=== PATIENT | female | born 1945 | race Hispanic/Latino ===

== ENCOUNTER → 2022-05-20 | Outpatient (CLI) | payer MEDICARE | END | disposition home or self-care (01) | LOC: RAH 14:11 | PROVIDERS: ATTEND Internal Medicine Cardiovascular Disease | DX: R22.43 Localized swelling, mass and lump, lower limb, bilateral (principal) | CPT/HCPCS: 93970 ==

== ENCOUNTER → 2022-10-29 | Outpatient (CLI) | payer MEDICARE ==
[~2022-10-29] MED LIST: CLIN-141 PO; LIDOP TP; LOSA25TA41 PO; MELO-106 PO; SULF1TAB42 PO; VITAD50000 PO
== END | disposition home or self-care (01) ==
LOC: SHCH 13:13
PROVIDERS: ATTEND Internal Medicine Cardiovascular Disease
DX: I87.2 Venous insufficiency (chronic) (peripheral) (principal)
CPT/HCPCS: 93970

== ENCOUNTER → 2023-01-04 | Outpatient (CLI) | payer MEDICARE | END | disposition home or self-care (01) | LOC: SHCH 14:16 | PROVIDERS: ATTEND Internal Medicine Cardiovascular Disease | DX: I08.2 Rheumatic disorders of both aortic and tricuspid valves (principal); R60.9 Edema, unspecified | CPT/HCPCS: 93306 ==

== ENCOUNTER → 2023-01-31 | Outpatient (CLI) | payer MEDICARE ==
[2023-01-31 12:43] LABS: CREATININE 0.8 mg/dL (0.5-1.5); POTASSIUM 3.2 mmol/L (3.5-5.1)
== END | disposition home or self-care (01) ==
LOC: LAB 08:15
PROVIDERS: ATTEND Internal Medicine Cardiovascular Disease
DX: I10 Essential (primary) hypertension (principal)
CPT/HCPCS: 36415; 80048

== ENCOUNTER → 2023-02-17 | Outpatient (CLI) | payer MEDICARE ==
[2023-02-17 12:20] LABS: CREATININE 0.8 mg/dL (0.5-1.5); POTASSIUM 3.6 mmol/L (3.5-5.1)
== END | disposition home or self-care (01) ==
LOC: LAB 08:18
PROVIDERS: ATTEND Internal Medicine Cardiovascular Disease
DX: I10 Essential (primary) hypertension (principal)
CPT/HCPCS: 36415; 80048; 83880; 85378

== ENCOUNTER 2023-06-15 17:03 | Emergency (ER) | payer MEDICARE ==
[~2023-06-15] VITALS: Ht 157.5 cm; Wt 79.8 kg
[~2023-06-15 17:03] MED LIST changes: +AMLO5TAB4 PO; +CHOL4POW4 PO; -CLIN-141 PO; +DICY20TA2 PO; -LIDOP TP; -LOSA25TA41 PO; -MELO-106 PO; -SULF1TAB42 PO; -VITAD50000 PO
[2023-06-15 17:50] LABS: BASOPHILS # (AUTO) 0.05 K/uL (0.00-0.20); BASOPHILS % (AUTO) 0.5 % (0.0-5.0); EOSINOPHILS # (AUTO) 0.09 K/uL (0.00-0.70); EOSINOPHILS % (AUTO) 0.9 % (0.0-8.0); HEMATOCRIT 46.1 % (36-48); IMMATURE GRANULOCYTE ABSOLUTE 0.04 K/uL (0-1); LYMPHOCYTES # (AUTO) 2.1 K/uL (1.0-4.8); LYMPHOCYTES % (AUTO) 21.3 % (21.0-51.0); MEAN CORPUSCULAR HEMOGLOBIN 29.9 pg (27.0-33.0); MEAN CORPUSCULAR HGB CONC 32.8 g/dL (32.0-36.0); MEAN CORPUSCULAR VOLUME 91.3 fL (79-99); MONOCYTES # (AUTO) 0.8 K/uL (0.1-1.0); MONOCYTES % (AUTO) 8.2 % (3.0-13.0); NEUTROPHILS # (AUTO) 6.7 K/uL (1.8-7.7); NEUTROPHILS % (AUTO) 68.7 % (40.0-77.0); PLATELET COUNT (AUTO) 251 K/uL (130-400); RED BLOOD CELL COUNT(AUTO) 5.05 MIL/uL (4.00-5.50); WHITE BLOOD COUNT (AUTO) 9.8 K/uL (4.8-10.8)
[2023-06-15 18:03] LABS: CREATININE 0.7 mg/dL (0.5-1.5); POTASSIUM 3.4 mmol/L (3.5-5.1)
[2023-06-15 18:06] LABS: BILIRUBIN,URINE NEGATIVE (NEGATIVE); COLOR,URINE YELLOW (YELLOW); GLUCOSE, URINE (UA) NEGATIVE (NEGATIVE); KETONES,URINE NEGATIVE (NEGATIVE); LEUKOCYTE ESTERASE ,URINE NEGATIVE Leu/uL (NEGATIVE); NITRATE,URINE NEGATIVE (NEGATIVE); PH,URINE 7.5 (5.0-8.0); PROTEIN,URINE 50 mg/dL (NEGATIVE); UROBILINOGEN,URINE 0.2 mg/dL (0.2-1.0)
[2023-06-15 18:08] LABS: ADD UA MICROSCOPIC YES; APPEARANCE,URINE CLOUDY (CLEAR)
[2023-06-15 18:10] LABS: ALBUMIN 3.7 g/dL (3.5-5.0); BILIRUBIN,TOTAL 0.7 mg/dL (0.2-1.0); TOTAL PROTEIN, SERUM 7.9 g/dL (6.0-8.3)
[2023-06-15 18:15] LABS: BACTERIA,URINE MOD /HPF (None Seen); MUCUS,URINE RARE LPF (None Seen); SQUAMOUS EPITHELIAL CELL,UR MANY /HPF (0-2); WBC,URINE 0-1 /HPF (0-1)
[2023-06-15] MEDS ORDERED: ORPHENADRINE CITRATE 30 MG/ML ML IM ONE (21:00)
[2023-06-15] MEDS ORDERED: LIDOCAINE 5% TOPICAL PATCH TP ONE (21:00)
[2023-06-15] MEDS ORDERED: MORPHINE 4 MG SYG IM ONE (21:00)
[2023-06-15 21:10] LABS: MAGNESIUM 2.3 mg/dL (1.80-2.40)
[2023-06-15] MEDS ORDERED: LIDOP TD (22:44)
[2023-06-15 23:13] VITALS: BP 165/82; PULSE 76; RESP 16; O2SAT 99
== END 2023-06-15 23:25 | disposition home or self-care (01) ==
LOC: EDH 17:03
DX: M54.50 Low back pain, unspecified (principal); M19.90 Unspecified osteoarthritis, unspecified site; I10 Essential (primary) hypertension; Z79.899 Other long term (current) drug therapy; Z88.1 Allergy status to other antibiotic agents; Z88.2 Allergy status to sulfonamides; Z90.710 Acquired absence of both cervix and uterus
CPT/HCPCS: 99285; 74176; 83735; 84484; 80053; 83690; 85025; 81001; 36415; 96372 ×2; 93005; J2270; J2360

== ENCOUNTER 2023-06-26 10:30 | Emergency (ER) | payer MEDICARE ==
[~2023-06-26] VITALS: Ht 157.5 cm; Wt 79.8 kg
[~2023-06-26 10:30] MED LIST changes: +LIDOP TD
[2023-06-26 12:34] LABS: RAPID GROUP A STREP negative (NEGATIVE)
[2023-06-26 12:36] LABS: SARS-CoV-2, RNA, NAAT NEGATIVE SARS CoV-2 (NEGATIVE)
[2023-06-26 12:43] LABS: INFLUENZA TYPE A Negative For Type A (NEGATIVE); INFLUENZA TYPE B Negative For Type B (NEGATIVE)
[2023-06-26 12:59] LABS: BASOPHILS # (AUTO) 0.06 K/uL (0.00-0.20); BASOPHILS % (AUTO) 0.6 % (0.0-5.0); EOSINOPHILS % (AUTO) 0.9 % (0.0-8.0); HEMATOCRIT 45.1 % (36-48); IMMATURE GRANULOCYTE ABSOLUTE 0.06 K/uL (0-1); LYMPHOCYTES # (AUTO) 1.4 K/uL (1.0-4.8); LYMPHOCYTES % (AUTO) 13.4 % (21.0-51.0); MEAN CORPUSCULAR HGB CONC 33.5 g/dL (32.0-36.0); MEAN CORPUSCULAR VOLUME 89.7 fL (79-99); MONOCYTES # (AUTO) 0.9 K/uL (0.1-1.0); MONOCYTES % (AUTO) 8.3 % (3.0-13.0); NEUTROPHILS # (AUTO) 8.2 K/uL (1.8-7.7); NEUTROPHILS % (AUTO) 76.2 % (40.0-77.0); PLATELET COUNT (AUTO) 256 K/uL (130-400); RED BLOOD CELL COUNT(AUTO) 5.03 MIL/uL (4.00-5.50); RED CELL DISTRIBUTION WIDTH 13.7 % (11.0-15.5); WHITE BLOOD COUNT (AUTO) 10.7 K/uL (4.8-10.8)
[2023-06-26 13:06] LABS: CREATININE 0.7 mg/dL (0.5-1.5); POTASSIUM 3.4 mmol/L (3.5-5.1)
[2023-06-26 13:22] LABS: B-TYPE NATRIURETIC PEPTIDE 105 pg/mL (0-100)
[2023-06-26] MEDS ORDERED: ACETAMINOPHEN 500 MG TABLET PO ONE (14:30)
[2023-06-26] MEDS ORDERED: AZIT250T PO (15:08)
[2023-06-26] MEDS ORDERED: IPRNEB IH (15:08)
[2023-06-26] MEDS ORDERED: IPRATROPIUM 0.5 MG/2.5 ML INH IH ONE (16:00)
[2023-06-26] MEDS ORDERED: SOLU-MEDROL 40MG VIAL IM ONE (16:00)
[2023-06-26 16:40] VITALS: PULSE 84; RESP 21
[2023-06-26 17:24] VITALS: BP 138/89; PULSE 90; RESP 18; O2SAT 95
[2023-06-26] MEDS ORDERED: AUD IH (19:24)
[2023-06-26] MEDS ORDERED: GUAI600T50 PO (19:24)
== END 2023-06-26 17:25 | disposition home or self-care (01) ==
LOC: EDH 10:30
DX: R91.8 Other nonspecific abnormal finding of lung field (principal); R05.9 Cough, unspecified; R06.00 Dyspnea, unspecified; R79.89 Other specified abnormal findings of blood chemistry; M19.90 Unspecified osteoarthritis, unspecified site; I10 Essential (primary) hypertension; Z79.899 Other long term (current) drug therapy; Z88.1 Allergy status to other antibiotic agents; Z88.2 Allergy status to sulfonamides; Z90.710 Acquired absence of both cervix and uterus; Z20.822 Contact with and (suspected) exposure to COVID-19
CPT/HCPCS: 99285; 71045; 87635; 84484; 80048; 83880; 85025; 87880; 87804 ×2; 36415; 96372; 93005; 94640; J2920

== ENCOUNTER → 2023-09-24 | Outpatient (CLI) | payer MEDICARE ==
[~2023-09-24] MED LIST changes: -AMLO5TAB4 PO; +APIX5TAB PO; +AUD IH; +GABA100C PO; +GUAI600T50 PO; +IPRNEB IH; +LEVO750T68 PO; +METO25 PO; +PRED20B PO
[2023-09-24 16:47] LABS: CREATININE 0.9 mg/dL (0.5-1.0); POTASSIUM 3.7 mmol/L (3.5-5.1)
== END | disposition home or self-care (01) ==
LOC: LAB 13:52
PROVIDERS: ATTEND Internal Medicine Cardiovascular Disease
DX: I10 Essential (primary) hypertension (principal)
CPT/HCPCS: 36415; 80048

== ENCOUNTER → 2023-10-11 | Outpatient (CLI) | payer MEDICARE | END | disposition home or self-care (01) | LOC: SHCH 10:07 | PROVIDERS: ATTEND Internal Medicine Cardiovascular Disease | DX: I87.2 Venous insufficiency (chronic) (peripheral) (principal) | CPT/HCPCS: 93970 ==

== ENCOUNTER → 2023-12-01 | Outpatient (CLI) | payer MEDICARE ==
[~2023-12-01] MED LIST changes: -CHOL4POW4 PO; -DICY20TA2 PO; +FURO20TA4 PO; -GUAI600T50 PO; +IOHEXOL 350 MG/ML 100ML INFUS..BTL IV ONE; +IOHEXOL-350 50ML VIAL IV ONE; -LEVO750T68 PO; -LIDOP TD; +POTA-200 PO; -PRED20B PO
== END | disposition home or self-care (01) ==
LOC: RAH 10:56 → EDSTATUS 11:00
PROVIDERS: ATTEND Internal Medicine Cardiovascular Disease
DX: I87.1 Compression of vein (principal); I73.9 Peripheral vascular disease, unspecified; I74.09 Other arterial embolism and thrombosis of abdominal aorta; I70.0 Atherosclerosis of aorta
CPT/HCPCS: 75635; Q9967 ×2

== ENCOUNTER → 2024-01-30 | Outpatient (CLI) | payer MEDICARE ==
[~2024-01-30] MED LIST changes: -IOHEXOL 350 MG/ML 100ML INFUS..BTL IV ONE; -IOHEXOL-350 50ML VIAL IV ONE
[2024-01-30 12:46] LABS: CREATININE 0.8 mg/dL (0.5-1.0); POTASSIUM 4.3 mmol/L (3.5-5.1)
== END | disposition home or self-care (01) ==
LOC: LAB 09:49
PROVIDERS: ATTEND Internal Medicine Cardiovascular Disease
DX: I10 Essential (primary) hypertension (principal)
CPT/HCPCS: 36415; 80048; 83880

== ENCOUNTER → 2024-03-24 | Outpatient (CLI) | payer MEDICARE | END | disposition home or self-care (01) | LOC: LAB 14:51 | PROVIDERS: ATTEND Internal Medicine Cardiovascular Disease | DX: R60.9 Edema, unspecified (principal) | CPT/HCPCS: 36415; 83880 ==

== ENCOUNTER → 2024-03-30 | Outpatient (CLI) | payer MEDICARE ==
[2024-03-30 12:27] LABS: CREATININE 0.9 mg/dL (0.5-1.0); POTASSIUM 3.2 mmol/L (3.5-5.1)
== END | disposition home or self-care (01) ==
LOC: LAB 10:27
PROVIDERS: ATTEND Internal Medicine Cardiovascular Disease
DX: R60.9 Edema, unspecified (principal); I50.32 Chronic diastolic (congestive) heart failure
CPT/HCPCS: 36415; 80048; 83880

== ENCOUNTER 2024-05-21 05:22 | Emergency (ER) | payer MEDICARE ==
[~2024-05-21] VITALS: Ht 157.5 cm; Wt 80.3 kg
[~2024-05-21 05:22] MED LIST changes: -AUD IH; +FLUT1BLS3 IH; -GABA100C PO; -IPRNEB IH; -POTA-200 PO; +POTA-202 PO
--- NOTE | 2024-05-21 05:57 | ERN ---
ED Note History of Present Illness Stated Complaint: UTI, NAUSEA, DIZZINESS, CHILLS Chief Complaint: Painful Urination Time Seen by MD: 05:25 Dictation: Patient is a 79-year-old female with past medical history of atrial fibrillation, chronic congestive heart failure, hypertension, PID, diabetes mellitus who presents to the ER complaining of urinary symptoms including frequency, dysuria associated with the chills. Allergies: Coded Allergies: sulfamethoxazole (Unverified Allergy, Intermediate, REDNESS, 03/22/23) RASH trimethoprim (Unverified Allergy, Intermediate, REDNESS, 03/22/23) RASH metronidazole (Verified Allergy, Unknown, 09/18/22) Home Meds Active Scripts Fluticasone/Umeclidin/Vilanter (Trelegy Ellipta 100-62.5-25) 100-62.5 Blst.w.dev, 1 EACH IH BID for 30 Days, #1 INHALER Prov:YEISON EISENBERG MAINFRAME SYSTEMS PROGRAMMER 04/12/24 Metoprolol Tartrate (Lopressor) 25 Mg Tab, 12.5 MG PO BID, #60 TAB 0 Refills Prov:HAVEN ONEAL AUTO REPAIR TECHNICIAN 08/30/23 Apixaban (Eliquis) 5 Mg Tablet, 5 MG PO BID, #60 TAB 0 Refills Prov:HAVEN ONEAL AUTO REPAIR TECHNICIAN 08/30/23 Reported Medications Potassium Chloride (Potassium Chloride) 20 Meq Tab.er.prt, 2 TAB PO BID for 30 Days, #30 TAB 0 Refills 04/07/24 Furosemide (Furosemide) 20 Mg Tablet, 20 MG PO DAILY, TAB 10/21/23 Past Medical History Past Medical History: Arthritis, Diabetes-Type II, Heart Disease, Hypertension Additional Past Medical Hx: PAD: Stent in LLE, LEAKY VALVE Surgical History: Hysterectomy, Other Surgical History Other: BLADDER REPAIR, STent LLE Family History: Negative Social History: Negative History: Not Applicable Review of System Dictation NEGATIVE EXCEPT PER HPI Constitutional: Negative for fever, but reports chills Eyes: Negative for injury, pain,redness, and discharge ENT: Negative for injury,pain or swelling Cardiovascular: denies chest pain, palpitations, and edema Respiratory: Negative for shortness of breath, cough, and wheezing, Abdomen/GI: Negative for abdominal pain, nausea, vomiting, diarrhea, and constipation Back: Negative for injury and pain : Reports dysuria, frequency MS/Extremity: Negative for injury and deformity Skin: Negative for rash, and discoloration Neuro: Negative for headache, weakness, numbness, tingling, and seizure Psych: Negative for suicide ideation, homicidal ideation, and hallucinations Initial Vital Sign VS Vital Signs Date Time Temp Pulse Resp B/P (MAP) Pulse Ox O2 Delivery O2 Flow Rate FiO2 05/21/24 05:24 98.6 87 20 166/66 100 Room Air 0 05/21/24 06:23 21 Physical Exam Dictation VITAL SIGNS: Reviewed. GENERAL APPEARANCE: Alert, oriented x3, no acute distress, obese. HEAD AND FACE: Non-traumatic. EYES: PERRL, pink conjunctivas, eyelid no trauma, anterior chamber clear. EARS: Pinnas intact and no signs of trauma or erythema. Ear canals clear and no discharge. TMs no erythema. NOSE: No discharge, no bleeding. OROPHARYNX: Mouth normal, teeth no caries, tongue pink. Pharynx clear, no erythema. Tonsils no exudates, no abscesses noted. Mucous membrane moist. NECK: Supple, non-tender, no thyromegaly, no masses, no JVD, no bruits. BREAST: Deferred. CHEST: No tenderness, no crepitus, no paradoxical movement, no retractions. LUNGS: Clear, well-ventilated, symmetric, no rales, no wheezing, no rhonchi, no stridor, good breath sounds bilaterally. HEART: Regular rate, regular rhythm, no murmur, no gallops. VASCULAR: No peripheral edema. ABDOMEN: Soft, positive bowel sounds, nondistended, no guarding, nontender, no rebound, no masses no hepatomegaly, no splenomegaly, no Black's sign, no hernias. RECTAL: Deferred. GENITAL: Deferred. NEUROLOGICAL: Normal speech, gross motor function intact, gross sensory function intact. MUSCULOSKELETAL: Neck nontender, full range of motion, back nontender, full range of motion. EXTREMITIES: Nontender, full range of motion. SKIN: Color pink, dry, no turgor, no rash, no lacerations, no abrasions, no contusions. LYMPHATICS: Deferred. Results (Laboratory/Radiology) Laboratory/Radiology Laboratory Tests Test 05/21/24 05:51 05/21/24 08:00 White Blood Count 10.7 K/uL (4.8-10.8) Red Blood Count 4.39 MIL/uL (4.00-5.50) Hemoglobin 13.5 g/dL (12.0-16.0) Hematocrit 41.0 % (36-48) Mean Corpuscular Volume 93.4 fL (79-99) Mean Corpuscular Hemoglobin 30.8 pg (27.0-33.0) Mean Corpuscular Hemoglobin Concent 32.9 g/dL (32.0-36.0) Red Cell Distribution Width 14.2 % (11.0-15.5) Platelet Count 188 K/uL (130-400) Mean Platelet Volume 9.7 fL (7.5-10.5) Immature Granulocyte % (Auto) 0.7 % (0-1) Neutrophils (%) (Auto) 77.1 % (40.0-77.0) H Lymphocytes (%) (Auto) 12.6 % (21.0-51.0) L Monocytes (%) (Auto) 8.1 % (3.0-13.0) Eosinophils (%) (Auto) 1.1 % (0.0-8.0) Basophils (%) (Auto) 0.4 % (0.0-5.0) Neutrophils # (Auto) 8.2 K/uL (1.8-7.7) H Lymphocytes # (Auto) 1.4 K/uL (1.0-4.8) Monocytes # (Auto) 0.9 K/uL (0.1-1.0) Eosinophils # (Auto) 0.12 K/uL (0.00-0.70) Basophils # (Auto) 0.04 K/uL (0.00-0.20) Absolute Immature Granulocyte (auto 0.07 K/uL (0-1) Nucleated Red Blood Cells 0.0 % (0.0-0.19) Sodium Level 143 mmol/L (136-145) Potassium Level 3.2 mmol/L (3.5-5.1) L Chloride Level 106 mmol/L (101-111) Carbon Dioxide Level 30 mmol/L (21-32) Blood Urea Nitrogen 18 mg/dL (7-18) Creatinine 0.8 mg/dL (0.5-1.0) Glomerular Filtration Rate Calc 75 mL/min (>90) Random Glucose 108 mg/dL (70-105) H Total Calcium 9.1 mg/dL (8.5-10.1) B-Type Natriuretic Peptide 302 pg/mL (0-100) H Urine Color DARK-YELLOW (YELLOW) Urine Appearance CLOUDY (CLEAR) H Urine pH 7.0 (5.0-8.0) Urine Specific [place] 1.009 (1.001-1.031) Urine Protein 20 mg/dL (NEGATIVE) H Urine Glucose (UA) NEGATIVE mg/dL (NEGATIVE) Urine Ketones NEGATIVE mg/dL (NEGATIVE) Urine Occult Blood LARGE (NEGATIVE) H Urine Nitrate 1+ (NEGATIVE) H Urine Bilirubin NEGATIVE mg/dL (NEGATIVE) Urine Urobilinogen 2.0 mg/dL (0.2-1.0) H Urine Leukocyte Esterase 500 Teresa/uL (NEGATIVE) H ED Course ED Course Orders Procedure Category Date Status Time Urinalysis Profile LAB 05/21/24 In Process 05:30 Basic Metabolic Panel LAB 05/21/24 Complete 05:42 Cbc With Differential LAB 05/21/24 Complete 05:42 B-Type Natriuretic LAB 05/21/24 Complete Peptide 05:42 Phenazopyridine Hcl PHA 05/21/24 Complete 200 Mg Tab (Pyridium 06:00 Acetaminophen 500mg PHA 05/21/24 Complete Tab (Tylenol 500mg T 06:00 Ondansetron 4mg Inj PHA 05/21/24 Complete (Zofran 4mg Inj) 06:30 Culture Urine LYDIA 05/21/24 Logged 08:21 Ceftriaxone 1g Vial PHA 05/21/24 Logged (Rocephine 1g Inj) 08:30 0.9%Nacl 1000ml (Ns PHA 05/21/24 Logged 1000ml) 08:30 Current Medications Medications (Trade) Dose Ordered Sig/Fatuma Route PRN Reason Start Time Stop Time Status Last Admin Dose Admin Acetaminophen (TYLenol 500MG TAB) 500 mg ONCE ONCE PO 05/21/24 06:00 05/21/24 06:01 DC 05/21/24 06:07 Ceftriaxone Sodium (ROCEphine 1G INJ) 1 gm ONCE ONCE IVPB 05/21/24 08:30 05/21/24 08:31 UNV Ondansetron HCl (zoFRAN 4MG INJ) 4 mg ONCE ONCE IVP 05/21/24 06:30 05/21/24 06:31 DC 05/21/24 06:27 Phenazopyridine HCl (PYRIdium HCL 200 MG TAB) 200 mg ONCE ONCE PO 05/21/24 06:00 05/21/24 06:01 DC 05/21/24 06:07 Sodium Chloride 1,000 ml @ 0 mls/hr ONCE ONCE IV 05/21/24 08:30 05/21/24 08:31 UNV Vital Signs Date Time Temp Pulse Resp B/P (MAP) Pulse Ox O2 Delivery O2 Flow Rate FiO2 05/21/24 06:23 71 17 170/82 96 Room Air* 0 21 05/21/24 06:07 98.6 05/21/24 05:24 98.6 87 20 166/66 100 Room Air 0 Medical Decision Making MDM Patient is a 79-year-old female with past medical history of atrial fibrillation, chronic congestive heart failure, hypertension, PID, diabetes mellitus who presents to the ER complaining of urinary symptoms including frequency, dysuria associated with the chills. DR FORDE: I took over care at 0700 pending results and re-evaluation. Blood pressure mildly elevated otherwise unremarkable vital signs. Labs no leukocytosis. Mild left shift 77% neutrophils. No Bands. Metabolic panel is normal kidney functions normal. Urinalysis positive for UTI 1+ nitrites, 500 leuk esterase. Patient received 1 L of normal saline, 1 g of Rocephin, 4 mg of Zofran, Pyridium, and Tylenol here in the ER. No signs of SIRS or sepsis. No signs of pyelonephritis. Nontoxic in appearance. We will treat as a simple cystitis. We will discharge with the antibiotics. DX & DISP Disposition: Discharge Departure Impression: Primary Impression: UTI (urinary tract infection) Additional Impression: Hypertension Condition: Stable Scripts Cefpodoxime Proxetil (Cefpodoxime Proxetil) 200 Mg Tablet 200 MG PO BID for 10 Days, #20 TAB Prov: SALBADOR FORDE DO 05/21/24 Referrals: WILY LOVE MD (PCP) LENKA OLVERA MD May 21, 2024 05:57 SALBADOR FORDE DO May 21, 2024 08:34
[2024-05-21 05:59] LABS: BASOPHILS # (AUTO) 0.04 K/uL (0.00-0.20); BASOPHILS % (AUTO) 0.4 % (0.0-5.0); EOSINOPHILS # (AUTO) 0.12 K/uL (0.00-0.70); EOSINOPHILS % (AUTO) 1.1 % (0.0-8.0); IMMATURE GRANULOCYTE ABSOLUTE 0.07 K/uL (0-1); LYMPHOCYTES # (AUTO) 1.4 K/uL (1.0-4.8); LYMPHOCYTES % (AUTO) 12.6 % (21.0-51.0); MEAN CORPUSCULAR HEMOGLOBIN 30.8 pg (27.0-33.0); MEAN CORPUSCULAR HGB CONC 32.9 g/dL (32.0-36.0); MEAN CORPUSCULAR VOLUME 93.4 fL (79-99); MONOCYTES # (AUTO) 0.9 K/uL (0.1-1.0); MONOCYTES % (AUTO) 8.1 % (3.0-13.0); NEUTROPHILS # (AUTO) 8.2 K/uL (1.8-7.7); NEUTROPHILS % (AUTO) 77.1 % (40.0-77.0); PLATELET COUNT (AUTO) 188 K/uL (130-400); RED BLOOD CELL COUNT(AUTO) 4.39 MIL/uL (4.00-5.50); RED CELL DISTRIBUTION WIDTH 14.2 % (11.0-15.5); WHITE BLOOD COUNT (AUTO) 10.7 K/uL (4.8-10.8)
[2024-05-21 06:07] VITALS: TEMP 98.6
[2024-05-21] MEDS: PHENAZOpyridine HCL 200 MG TAB 200 MG TABLET PO ONE (06:07)
[2024-05-21] MEDS: acetaMINOPHEN 500 MG TABLET PO ONE (06:07)
[2024-05-21 06:15] LABS: CREATININE 0.8 mg/dL (0.5-1.0); POTASSIUM 3.2 mmol/L (3.5-5.1)
[2024-05-21] MEDS: ondanSETRON 4MG INJ IVP ONE (06:27)
[2024-05-21 06:34] LABS: B-TYPE NATRIURETIC PEPTIDE 302 pg/mL (0-100)
[2024-05-21 08:20] LABS: APPEARANCE,URINE CLOUDY (CLEAR); BILIRUBIN,URINE NEGATIVE (NEGATIVE); COLOR,URINE DARK-YELLOW (YELLOW); GLUCOSE, URINE (UA) NEGATIVE (NEGATIVE); KETONES,URINE NEGATIVE (NEGATIVE); LEUKOCYTE ESTERASE ,URINE 500 Leu/uL (NEGATIVE); NITRATE,URINE 1+ (NEGATIVE); OCCULT BLOOD,URINE LARGE (NEGATIVE); PROTEIN,URINE 20 mg/dL (NEGATIVE)
[2024-05-21 08:21] LABS: ADD UA MICROSCOPIC YES
[2024-05-21] MEDS ORDERED: CEFP200T14 PO (08:32)
[2024-05-21 08:40] LABS: BACTERIA,URINE FEW /HPF (None Seen); MUCUS,URINE RARE LPF (None Seen); WBC,URINE TNTC /HPF (0-1)
[2024-05-21] MEDS: cefTRIAXone 1G VIAL IVPB ONE (08:59)
[2024-05-21] MEDS: 0.9%NACL 1000ML 1,000 ML IV ONE (08:59)
[2024-05-21 09:47] VITALS: BP 161/79; PULSE 72; RESP 17; TEMP 98.6; O2SAT 100
== END 2024-05-21 10:19 | disposition home or self-care (01) ==
LOC: EDH 05:22
DX: N39.0 Urinary tract infection, site not specified (principal); E11.9 Type 2 diabetes mellitus without complications; I11.9 Hypertensive heart disease without heart failure; M19.90 Unspecified osteoarthritis, unspecified site; Z79.01 Long term (current) use of anticoagulants; Z79.899 Other long term (current) drug therapy; Z88.1 Allergy status to other antibiotic agents; Z88.2 Allergy status to sulfonamides; Z90.710 Acquired absence of both cervix and uterus
CPT/HCPCS: 99284; 96374; 96375; 80048; 83880; 85025; 87086 ×2; 87186; 81001; 36415; J7030; J0696; J2405

== ENCOUNTER 2024-07-20 09:42 | Emergency (ER) | payer MEDICARE ==
[~2024-07-20] VITALS: Ht 160 cm; Wt 81.6 kg
[~2024-07-20 09:42] MED LIST changes: +DOXY100C5 PO; -FURO20TA4 PO; +FURO40TA5 PO
--- NOTE | 2024-07-20 10:10 | ERN ---
General Chief Complaint: Lower Extremity Pain/Injury Stated Complaint: BILATERAL LEG SWELLING, WARM Time Seen by MD: 09:45 Source: patient History of Present Illness Initial Comments Patient is a 79-year-old female past medical history of venous insufficiency, cellulitis, hypertension who presents with a three-week history of worsening erythema, warmth, swelling and tenderness over bilateral lower extremities. The symptoms begun gradually and progressively worsened. The patient denies any preceding trauma, insect bites or puncture wounds, though she reports a history of chronic venous stasis. The patient describes the pain as severe, intermittent , a 9/10 and now worsening with walking or touch. There is no drainage or abscess formation noted. The patient denies any fevers, chills, nausea, vomiting, or systemic symptoms. Allergies: Coded Allergies: sulfamethoxazole (Unverified Allergy, Intermediate, REDNESS, 03/22/23) RASH trimethoprim (Unverified Allergy, Intermediate, REDNESS, 03/22/23) RASH metronidazole (Verified Allergy, Unknown, 09/18/22) Home Meds Active Scripts Cephalexin (Cephalexin) 500 Mg Tablet, 1 TAB PO TID for 10 Days, #30 TAB 0 Refills Prov:GABRIEL BONILLA MD 07/20/24 Doxycycline Hyclate (Doxycycline Hyclate) 100 Mg Capsule, 1 CAP PO BID for 10 Days, #20 CAP 0 Refills Prov:MOHIT ALVAREZ NP 05/31/24 Furosemide (Furosemide) 40 Mg Tablet, 1 TAB PO DAILY for 30 Days, #30 TAB 0 Refills Prov:MOHIT ALVAREZ NP 05/31/24 Fluticasone/Umeclidin/Vilanter (Trelegy Ellipta 100-62.5-25) 100-62.5 Bls t.w.dev, 1 EACH IH BID for 30 Days, #1 INHALER Prov:YEISON EISENBERG ABORIGINAL EDUCATION TEACHER 04/12/24 Metoprolol Tartrate (Lopressor) 25 Mg Tab, 12.5 MG PO BID, #60 TAB 0 Refills Prov:HAVEN ONEAL ADMISSIONS COUNSELOR 08/30/23 Apixaban (Eliquis) 5 Mg Tablet, 5 MG PO BID, #60 TAB 0 Refills Prov:HAVEN ONEAL ADMISSIONS COUNSELOR 08/30/23 Reported Medications Potassium Chloride (Potassium Chloride) 20 Meq Tab.er.prt, 2 TAB PO BID for 30 Days, #30 TAB 0 Refills 04/07/24 Past Medical History Past Medical History: CAD, CHF, Diabetes-Type II, Hypertension Medical History Other: TAKING ELEQUIS Past Surgical History: Hysterectomy, Other Surgical History Other: BLADDER SUSPENSION Family History Family History: Negative Social History Social History: Negative Female( History) History: Not Applicable ROS Dictation Constitutional: No appetite loss, No fevers, chills , No night sweats, No weakness, fatigue Eye: No vision change, No redness, pain or discharge ENT: No hearing loss, ear pain or discharge, No nose bleeds, No sore throat, Neck: No swelling. pain or stiffness Respiratory: No cough, shortness of breath, wheezing Cardiovascular: No chest pain,, palpitations, dyspnea, No edema Gastrointestinal: No abdominal pain, No nausea, vomiting, No diarrhea, constipation Genitourinary: No painful urination, No blood in urine, No urinary incontinence, No frequency or urgency Integumetary: Bilateral lower extremity pain, redness, swelling Lymphatic: No easy bruising, No bleeding tendencies , No swollen lymph nodes A 13-point Review of Systems was assessed, all of which are negative except for HPI or as indicated above. Physical Exam Physical Exam Dictation General: Alert & Oriented, No acute distress. EENT: No conjunctival redness or discharge noted Tympanic membranes are clear, Normal hearing, Oral mucosa is moist, No pharyngeal erythema, No nasal discharge, No oral lesions. Neck: Non-tender, No jugular vein distention, No lymphadenopathy, No thyromegaly, Supple. Respiratory: Lungs are clear to auscultation, Respirations are non-labored, Breath sounds are equal, No chest wall tenderness, _. Cardiovascular: Normal rate, Normal rhythm, No murmur, Good pulses equal in all extremities, Normal peripheral perfusion, No edema. Gastrointestinal: Soft, Non-tender, Non-distended, Normal bowel sounds, No organomegaly, _. Musculoskeletal: Normal range of motion, Normal strength, No tenderness, No swelling, No deformity, Normal gait. Integumentary: Bilateral lower extremity erythema, tenderness, edema+2 Neurologic: Alert, Oriented x4, Normal sensory, No focal defects Psychiatric: Cooperative, Appropriate mood & affect, Normal judgement, Non- suicidal. Results Laboratory and Microbiology Lab and Micro Result Laboratory Tests Test 07/20/24 09:57 2/11/25 10:15 07/20/24 10:34 07/20/24 10:37 Urine Color YELLOW (YELLOW) Urine Appearance CLOUDY (CLEAR) H Urine pH 6.5 (5.0-8.0) Urine Specific [place] 1.016 (1.001-1.031) Urine Protein 10 mg/dL (NEGATIVE) H Urine Glucose (UA) NEGATIVE mg/dL (NEGATIVE) Urine Ketones NEGATIVE mg/dL (NEGATIVE) Urine Occult Blood MODERATE (NEGATIVE) H Urine Nitrate NEGATIVE (NEGATIVE) Urine Bilirubin NEGATIVE mg/dL (NEGATIVE) Urine Urobilinogen 0.2 mg/dL (0.2-1.0) Urine Leukocyte Esterase 75 Teresa/uL (NEGATIVE) H Urine RBC 26-50 /HPF (0-1) H Urine WBC 11-25 /HPF (0-1) H Urine Squamous Epithelial Cells MANY /HPF (0-2) Urine Bacteria FEW /HPF (None Seen) Urine Hyaline Casts 2-5 /LPF (0-1 /LPF) H White Blood Count 7.6 K/uL (4.8-10.8) Red Blood Count 4.42 MIL/uL (4.00-5.50) Hemoglobin 13.3 g/dL (12.0-16.0) Hematocrit 40.4 % (36-48) Mean Corpuscular Volume 91.4 fL (79-99) Mean Corpuscular Hemoglobin 30.1 pg (27.0-33.0) Mean Corpuscular Hemoglobin Concent 32.9 g/dL (32.0-36.0) Red Cell Distribution Width 13.0 % (11.0-15.5) Platelet Count 222 K/uL (130-400) Mean Platelet Volume 10.3 fL (7.5-10.5) Immature Granulocyte % (Auto) 0.3 % (0-1) Neutrophils (%) (Auto) 69.3 % (40.0-77.0) Lymphocytes (%) (Auto) 19.7 % (21.0-51.0) L Monocytes (%) (Auto) 9.1 % (3.0-13.0) Eosinophils (%) (Auto) 1.2 % (0.0-8.0) Basophils (%) (Auto) 0.4 % (0.0-5.0) Neutrophils # (Auto) 5.2 K/uL (1.8-7.7) Lymphocytes # (Auto) 1.5 K/uL (1.0-4.8) Monocytes # (Auto) 0.7 K/uL (0.1-1.0) Eosinophils # (Auto) 0.09 K/uL (0.00-0.70) Basophils # (Auto) 0.03 K/uL (0.00-0.20) Absolute Immature Granulocyte (auto 0.02 K/uL (0-1) Nucleated Red Blood Cells 0.0 % (0.0-0.19) Erythrocyte Sedimentation Rate 22 MM/HR (0-30) Sodium Level 144 mmol/L (136-145) Potassium Level 3.8 mmol/L (3.5-5.1) Chloride Level 107 mmol/L (101-111) Carbon Dioxide Level 30 mmol/L (21-32) Blood Urea Nitrogen 22 mg/dL (7-18) H Creatinine 0.8 mg/dL (0.5-1.0) Glomerular Filtration Rate Calc 75 mL/min (>90) Random Glucose 95 mg/dL (70-105) Total Calcium 8.9 mg/dL (8.5-10.1) Total Bilirubin 0.9 mg/dL (0.2-1.0) Aspartate Amino Transf (AST/SGOT) 23 U/L (10-37) Alanine Aminotransferase (ALT/SGPT) 17 U/L (12-78) Alkaline Phosphatase 150 U/L (50-136) H B-Type Natriuretic Peptide 270 pg/mL (0-100) H Total Protein 6.8 g/dL (6.0-8.3) Albumin 3.6 g/dL (3.5-5.0) Procalcitonin < 0.05 ng/mL (0.05-0.5) L C-Reactive Protein, Quantitative 3.70 mg/L (0.5-3.0) H Lactic Acid Level 0.9 mmol/L (0.8-2.5) MDM Potential differential diagnoses include: * Cellulitis * Venous insufficiency Assessment: I will order a CBC and CMP and administer medications according to the patient's complaint. Will order 1 Liter of LR for adequate hydration I will re-evaluate the patient after treatment and diagnostic exams have returned to determine whether they require further testing, can be safely discharged home, or need admission for further treatment and evaluation. Given the social determinants of health affecting care, including literacy, access to medical care, prescription drug management, and [id number] drugs, I will ensure that treatment plans are tailored accordingly. Revaluation : Patient is alert and oriented. States she feels a lot better . Disposition: Will discharge patient at this time with prescription of Cephalexin PO and instructions to follow up with PCP for further evaluation and treatment. Attestation: Patient's case was discussed with the ER MD. Reviewed the documentation, medical decision making and treatment plan. Agrees with the findings and plan of care. ED Course Orders Procedure Category Date Status Time Cbc With Differential LAB 07/20/24 Complete 10:10 Procalcitonin LAB 07/20/24 Complete 10:10 Erythrocyte LAB 07/20/24 Complete Sedimentation Rate 10:10 Comprehensive LAB 07/20/24 Complete Metabolic Panel 10:10 Urinalysis Profile LAB 07/20/24 Complete 10:10 Blood Cult LYDIA 07/20/24 Complete 10:22 Lactic Acid LAB 07/20/24 Complete 10:22 Us Venous Doppler US 07/20/24 Resulted Bilateral 10:27 B-Type Natriuretic LAB 07/20/24 Complete Peptide 10:39 Ketorolac PHA 07/20/24 Complete Tromethamine 30mg/Ml 11:00 Crp Quantitative LAB 07/20/24 Complete 11:04 *General Dc DS 07/20/24 Transmitted Instructions 12:23 Culture Urine LYDIA 07/20/24 Complete 12:47 Vital Signs Date Time Temp Pulse Resp B/P (MAP) Pulse Ox O2 Delivery O2 Flow Rate FiO2 07/20/24 12:45 98.1 66 18 154/64 99 Room Air* 0 21 07/20/24 10:19 97.9 67 20 166/62 99 Room Air* 0 21 07/20/24 09:43 97.9 73 20 220/80 99 Room Air 0 DX & DISP Disposition: Discharge Departure Impression: Primary Impression: Cellulitis Additional Impression: Venous insufficiency Condition: Stable Scripts Cephalexin (Cephalexin) 500 Mg Tablet 1 TAB PO TID for 10 Days, #30 TAB 0 Refills Prov: GABRIEL BONILLA MD 07/20/24 Additional Instructions: Your symptoms are consistent with cellulitis. Your lab work (CBC, BMP, CRP, ESR) is stable. I have prescribed cephalexin, which is an antibiotic. Please take as prescribed. You can take [id number] Tylenol (1000 mg) up to 4 times a day as needed for pain. You can take ibuprofen (800 mg) up to 4 times a day as needed for pain. Please follow up with the primary doctor in 3-5 days for re-evaluation. Return to the emergency department as needed. Referrals: WILY LOVE MD (PCP) I performed a substantive portion of the visit. I have reviewed and personally made and approve the management plan that is documented in the notes by myself with BÁRBARA/resident. I acknowledged full responsibility for the patient's management plan. GABRIEL BONILLA MD Jul 20, 2024 10:10 SALBADOR FORDE DO Jul 20, 2024 12:40
[2024-07-20 10:51] LABS: BASOPHILS # (AUTO) 0.03 K/uL (0.00-0.20); BASOPHILS % (AUTO) 0.4 % (0.0-5.0); EOSINOPHILS # (AUTO) 0.09 K/uL (0.00-0.70); EOSINOPHILS % (AUTO) 1.2 % (0.0-8.0); HEMATOCRIT 40.4 % (36-48); IMMATURE GRANULOCYTE ABSOLUTE 0.02 K/uL (0-1); LYMPHOCYTES # (AUTO) 1.5 K/uL (1.0-4.8); LYMPHOCYTES % (AUTO) 19.7 % (21.0-51.0); MEAN CORPUSCULAR HEMOGLOBIN 30.1 pg (27.0-33.0); MEAN CORPUSCULAR HGB CONC 32.9 g/dL (32.0-36.0); MEAN CORPUSCULAR VOLUME 91.4 fL (79-99); MONOCYTES # (AUTO) 0.7 K/uL (0.1-1.0); MONOCYTES % (AUTO) 9.1 % (3.0-13.0); NEUTROPHILS # (AUTO) 5.2 K/uL (1.8-7.7); NEUTROPHILS % (AUTO) 69.3 % (40.0-77.0); PLATELET COUNT (AUTO) 222 K/uL (130-400); RED BLOOD CELL COUNT(AUTO) 4.42 MIL/uL (4.00-5.50); WHITE BLOOD COUNT (AUTO) 7.6 K/uL (4.8-10.8)
[2024-07-20 11:04] LABS: ALBUMIN 3.6 g/dL (3.5-5.0); BILIRUBIN,TOTAL 0.9 mg/dL (0.2-1.0); CREATININE 0.8 mg/dL (0.5-1.0); POTASSIUM 3.8 mmol/L (3.5-5.1); TOTAL PROTEIN, SERUM 6.8 g/dL (6.0-8.3)
[2024-07-20] MEDS: ketOROlac 30MG VIAL (30MG/ML) IV ONE (11:05)
--- NOTE | 2024-07-20 11:46 | HMCIMG ---
US VENOUS DOPPLER BILATERAL HISTORY: Lower extremity swelling COMPARISON: None TECHNIQUE: Bilateral lower extremity venous Doppler ultrasound study was performed. FINDINGS: The common femoral, femoral, popliteal, and posterior tibial veins are visualized. Normal flow with compressibilities are demonstrated. The greater saphenous veins are also seen and grossly patent. IMPRESSION: 1. No evidence of deep venous thrombosis is seen.
[2024-07-20 11:58] LABS: ERYTHROCYTE SEDIMENTATION RATE 22 MM/HR (0-30)
[2024-07-20] MEDS ORDERED: CEPH500T PO (12:29)
[2024-07-20 12:34] LABS: APPEARANCE,URINE CLOUDY (CLEAR); BILIRUBIN,URINE NEGATIVE (NEGATIVE); COLOR,URINE YELLOW (YELLOW); GLUCOSE, URINE (UA) NEGATIVE (NEGATIVE); KETONES,URINE NEGATIVE (NEGATIVE); LEUKOCYTE ESTERASE ,URINE 75 Leu/uL (NEGATIVE); NITRATE,URINE NEGATIVE (NEGATIVE); OCCULT BLOOD,URINE MODERATE (NEGATIVE); PH,URINE 6.5 (5.0-8.0); PROTEIN,URINE 10 mg/dL (NEGATIVE); UROBILINOGEN,URINE 0.2 mg/dL (0.2-1.0)
[2024-07-20 12:45] VITALS: BP 154/64; PULSE 66; RESP 18; TEMP 98.1; O2SAT 99
[2024-07-20 12:47] LABS: ADD UA MICROSCOPIC YES
[2024-07-20 12:51] LABS: BACTERIA,URINE FEW /HPF (None Seen); MUCUS,URINE RARE LPF (None Seen); RBC,URINE 26-50 /HPF (0-1); SQUAMOUS EPITHELIAL CELL,UR MANY /HPF (0-2)
== END 2024-07-20 12:47 | disposition home or self-care (01) ==
LOC: EDH 09:42
DX: I87.2 Venous insufficiency (chronic) (peripheral) (principal); L03.116 Cellulitis of left lower limb; L03.115 Cellulitis of right lower limb; E11.9 Type 2 diabetes mellitus without complications; I11.0 Hypertensive heart disease with heart failure; I50.9 Heart failure, unspecified; I25.10 Atherosclerotic heart disease of native coronary artery without angina pectoris; Z79.01 Long term (current) use of anticoagulants; Z79.899 Other long term (current) drug therapy; Z88.1 Allergy status to other antibiotic agents; Z88.2 Allergy status to sulfonamides; Z90.710 Acquired absence of both cervix and uterus
CPT/HCPCS: 99285; 93970; 96374; 80053; 83880; 85025; 85651; 87040 ×2; 87086 ×2; 87186; 83605; 86140; 81001; 36415; 84145; J1885

== ENCOUNTER 2025-02-09 08:45 | Day surgery (SDC) | payer MEDICARE ==
[~2025-02-09] VITALS: Ht 157.5 cm; Wt 75.7 kg
[2025-02-09] VITALS (10 sets, daily range): BP systolic 111–166; BP diastolic 52–88; PULSE 58–70; RESP 13–18; TEMP 97–97.9
[~2025-02-09 08:45] MED LIST changes: +0.9%NACL 1000ML 1,000 ML IV ONE; +AMOX-426 PO; -DOXY100C5 PO
== END 2025-02-09 11:55 | disposition home or self-care (01) ==
LOC: DAH 08:45
PROVIDERS: ATTEND Surgery
DX: K92.1 Melena (principal); D12.4 Benign neoplasm of descending colon; K64.0 First degree hemorrhoids; K29.50 Unspecified chronic gastritis without bleeding; K21.9 Gastro-esophageal reflux disease without esophagitis; K44.9 Diaphragmatic hernia without obstruction or gangrene; K31.89 Other diseases of stomach and duodenum; I10 Essential (primary) hypertension; F41.9 Anxiety disorder, unspecified; F32.A Depression, unspecified; M19.90 Unspecified osteoarthritis, unspecified site; M81.0 Age-related osteoporosis without current pathological fracture; I48.91 Unspecified atrial fibrillation; Z90.710 Acquired absence of both cervix and uterus; Z88.1 Allergy status to other antibiotic agents; Z88.8 Allergy status to other drugs, medicaments and biological substances; Z95.5 Presence of coronary angioplasty implant and graft; Z98.49 Cataract extraction status, unspecified eye; Z79.01 Long term (current) use of anticoagulants; Z79.899 Other long term (current) drug therapy
CPT/HCPCS: 45385; 45380; 43239; 82948 ×2; J7030; J2704; A4620; A4215; J3490

== ENCOUNTER 2025-03-02 11:00 | Emergency (ER) | payer MEDICARE ==
[~2025-03-02] VITALS: Ht 157.5 cm; Wt 77.1 kg
[~2025-03-02 11:00] MED LIST changes: -0.9%NACL 1000ML 1,000 ML IV ONE; -AMOX-426 PO; -FLUT1BLS3 IH; -FURO40TA5 PO; -POTA-202 PO
--- NOTE | 2025-03-02 11:11 | ERN ---
ED Note History of Present Illness Stated Complaint: PAIN TO LEG AND FEET Chief Complaint: Lower Extremity Pain/Injury Time Seen by MD: 11:01 Time Seen by Midlevel: 11:09 Dictation: 80Year old female with a history of venous insufficiency coming in complaining of bilateral leg pain and redness onset one week ago. Patient states he went to her PCP on Friday states see did not give her anything to treat it and only checked her urine. Denies having any fever, nausea or vomiting or diarrhea. Denies any chest pain or chest discomfort. Denies any shortness a breath. Allergies: Coded Allergies: sulfamethoxazole (Unverified Allergy, Intermediate, REDNESS, 03/22/23) RASH trimethoprim (Unverified Allergy, Intermediate, REDNESS, 03/22/23) RASH metronidazole (Verified Allergy, Unknown, 09/18/22) Home Meds Active Scripts Cephalexin (Cephalexin) 500 Mg Tablet, 1 TAB PO BID for 10 Days, #20 TAB 0 Refills Prov:RACHELL ABBOTT USER SUPPORT ANALYST SUPERVISOR 03/02/25 Metoprolol Tartrate (Lopressor) 25 Mg Tab, 12.5 MG PO BID, #60 TAB 0 Refills Prov:HAVEN ONEAL HIDE MILL WORKER 08/30/23 Apixaban (Eliquis) 5 Mg Tablet, 5 MG PO BID, #60 TAB 0 Refills Prov:HAVEN ONEAL HIDE MILL WORKER 08/30/23 Past Medical History Past Medical History: Diabetes-Type II, Heart Disease, Hypertension Additional Past Medical Hx: TAKING ELEQUIS Surgical History: Hysterectomy, Other Surgical History Other: BLADDER LIFT Family History: Negative Social History: Negative History: Not Applicable Review of System Dictation Constitutional: Negative for fever,chills, and weight loss Eyes: Negative for injury, pain,redness, and discharge ENT: Negative for injury,pain or swelling Cardiovascular: Negative for chest pain, palpitations, and edema Respiratory: Negative for shortness of breath, cough, and wheezing, Abdomen/GI: Negative for abdominal pain, nausea, vomiting, diarrhea, and constipation Back: Negative for injury and pain : Negative for injury, bleeding and discharge MS/Extremity: Complaining of swelling and redness and pain to bilateral lower extremities Skin: Negative for rash, and discoloration Neuro: Negative for headache, weakness, numbness, tingling, and seizure Psych: Negative for suicide ideation, homicidal ideation, and hallucinations Review of Systems: was completed Initial Vital Sign VS Vital Signs Date Time Temp Pulse Resp B/P (MAP) Pulse Ox O2 Delivery O2 Flow Rate FiO2 03/02/25 11:01 97.9 74 18 156/81 96 Room Air 03/02/25 14:30 0 21 Physical Exam Dictation General: awake, alert, NAD Head/Face: Normocephalic, atraumatic Eyes: PERRL, EOMI, vision at baseline ENT: oral cavity clear, TMs clear, no signs of infection Neck: Trachea midline, supple, no nuchal rigidity Cardiovascular: RRR, normal S1/S2, No MRGs, no JVD Respiratory: CTAB, no respiratory distress, No rales or wheezes Abdomen: Soft, non-tender, non-distended, normal bowel sounds, no guarding or rebound. Skin: Warm, dry, normal turgor, no rash MS/Extremity: Pulses equal, no cyanosis, neurovascular intact, FROM, bilateral lower leg swelling ,plus three pitting edema, redness, no open wounds. Neuro: COAx4, GCS 15, strength 5/5, CN 2-12 intact, normal cerebellar exam, normal gait, Psych: Normal behavior, mood, and affect normal Results (Laboratory/Radiology) Laboratory/Radiology Laboratory Tests Test 03/02/25 12:09 03/02/25 14:40 White Blood Count 6.5 K/uL (4.8-10.8) Red Blood Count 4.69 MIL/uL (4.00-5.50) Hemoglobin 13.8 g/dL (12.0-16.0) Hematocrit 43.0 % (36-48) Mean Corpuscular Volume 91.7 fL (79-99) Mean Corpuscular Hemoglobin 29.4 pg (27.0-33.0) Mean Corpuscular Hemoglobin Concent 32.1 g/dL (32.0-36.0) Red Cell Distribution Width 15.1 % (11.0-15.5) Platelet Count 176 K/uL (130-400) Mean Platelet Volume 10.3 fL (7.5-10.5) Immature Granulocyte % (Auto) 0.3 % (0-1) Neutrophils (%) (Auto) 69.0 % (40.0-77.0) Lymphocytes (%) (Auto) 19.5 % (21.0-51.0) L Monocytes (%) (Auto) 9.7 % (3.0-13.0) Eosinophils (%) (Auto) 0.9 % (0.0-8.0) Basophils (%) (Auto) 0.6 % (0.0-5.0) Neutrophils # (Auto) 4.5 K/uL (1.8-7.7) Lymphocytes # (Auto) 1.3 K/uL (1.0-4.8) Monocytes # (Auto) 0.6 K/uL (0.1-1.0) Eosinophils # (Auto) 0.06 K/uL (0.00-0.70) Basophils # (Auto) 0.04 K/uL (0.00-0.20) Absolute Immature Granulocyte (auto 0.02 K/uL (0-1) Nucleated Red Blood Cells 0.0 % (0.0-0.19) Erythrocyte Sedimentation Rate 17 MM/HR (0-30) Sodium Level 137 mmol/L (136-145) Potassium Level 3.9 mmol/L (3.5-5.1) Chloride Level 102 mmol/L (101-111) Carbon Dioxide Level 26 mmol/L (21-32) Blood Urea Nitrogen 15 mg/dL (7-18) Creatinine 0.8 mg/dL (0.5-1.0) Glomerular Filtration Rate Calc 74 mL/min (>90) Random Glucose 93 mg/dL (70-105) Total Calcium 9.2 mg/dL (8.5-10.1) Total Bilirubin 1.9 mg/dL (0.2-1.0) H Direct Bilirubin 0.7 mg/dL (0.0-0.3) H Aspartate Amino Transf (AST/SGOT) 22 U/L (10-37) Alanine Aminotransferase (ALT/SGPT) 14 U/L (12-78) Alkaline Phosphatase 174 U/L (50-136) H C-Reactive Protein, Quantitative 3.50 mg/L (0.5-3.0) H B-Type Natriuretic Peptide 448 pg/mL (0-100) H Total Protein 6.9 g/dL (6.0-8.3) Albumin 3.2 g/dL (3.5-5.0) L Urine Color LIGHT-YELLOW (YELLOW) Urine Appearance CLEAR (CLEAR) Urine pH 7.0 (5.0-8.0) Urine Specific [place] 1.011 (1.001-1.031) Urine Protein 30 mg/dL (NEGATIVE) H Urine Glucose (UA) NEGATIVE mg/dL (NEGATIVE) Urine Ketones NEGATIVE mg/dL (NEGATIVE) Urine Occult Blood +- (TRACE) (NEGATIVE) H Urine Nitrate NEGATIVE (NEGATIVE) Urine Bilirubin NEGATIVE mg/dL (NEGATIVE) Urine Urobilinogen 0.2 mg/dL (0.2-1.0) Urine Leukocyte Esterase NEGATIVE Teresa/uL Urine RBC 2-5 /HPF (0-1) H Urine WBC 2-5 /HPF (0-1) H Urine Squamous Epithelial Cells FEW /HPF (0-2) Urine Bacteria RARE /HPF (None Seen) Labs Reviewed?: Yes ED Course ED Course Orders Procedure Category Date Status Time Cbc With Differential LAB 03/02/25 Complete 11:07 Basic Metabolic Panel LAB 03/02/25 Complete 11:07 Hepatic Function Panel LAB 03/02/25 Complete 11:07 Crp Quantitative LAB 03/02/25 Complete 11:07 Erythrocyte Sed Rate LAB 03/02/25 Complete 11:07 B-Type Natriuretic LAB 03/02/25 Complete Peptide 11:07 12 Lead Ekg Tracing- EKG 03/02/25 Complete Technical 11:07 Us Venous Doppler US 03/02/25 Resulted Bilateral 11:07 Urinalysis Profile LAB 03/02/25 Complete 11:07 Furosemide 20mg Vial PHA 03/02/25 Complete (Lasix 20mg Vial) 14:30 Current Medications Medications (Trade) Dose Ordered Sig/Fatuma Route PRN Reason Start Time Stop Time Status Last Admin Dose Admin Furosemide (LASix 20MG VIAL) 20 mg ONCE ONCE IV 03/02/25 14:30 03/02/25 14:31 DC Vital Signs Date Time Temp Pulse Resp B/P (MAP) Pulse Ox O2 Delivery O2 Flow Rate FiO2 03/02/25 14:30 97.5 91 20 159/62 97 Room Air* 0 21 03/02/25 11:01 97.9 74 18 156/81 96 Room Air Medical Decision Making MDM MDM: 80Year old female with a history of venous insufficiency coming in complaining of bilateral leg pain and redness onset one week ago. Patient states he went to her PCP on Friday states see did not give her anything to treat it and only checked her urine. Denies having any fever, nausea or vomiting or diarrhea. Denies any chest pain or chest discomfort. Denies any shortness a breath. CBC shows no leukocytosis, no anemia, no thrombocytopenia. ESR is 17. Chemistry shows no electrolyte abnormality. Normal kidney function. BNP mildly elevated at 448. And mild elevation of CRP at 3.5. Ultrasound is negative for bilateral DVTs. Patient will receive a dose of IV Lasix here and be discharged for Lasix for one week along with the clindamycin for cellulitis. Differential diagnosis: Venous insufficiency, cellulitis, DVTs Rationale: Tests considered and ordered secondary to shared decision making include: Previous outside records reviewed: Old ER visits. Risk of complication and/or morbidity or mortality of patient management: None Medications-Per medication reconciliation Need for hospitalization: Patient does not meet criteria for hospitalization. Need for emergency major/minor surgery: No There are no social concerns with this patient. Prescription drug management Prescriptions will include symptomatic care Patient's prior external medical records from other ER visits were reviewed by me as indicated. Prior testing and results from previous visits were reviewed. Prior tests were taken into account with medical decision making and resource utilization, independent historian/historians were used to obtain complete medical history. I independently interpreted the test that were performed, results were reviewed by me and considered findings on radiology if ordered. Medical management and examination interpretation discussions were had by me with other qualified healthcare professionals as indicated for the patient's care. DX & DISP Disposition: Discharge Departure Impression: Primary Impression: Venous insufficiency Additional Impression: Cellulitis Condition: Stable Scripts Cephalexin (Cephalexin) 500 Mg Tablet 1 TAB PO BID for 10 Days, #20 TAB 0 Refills Prov: RACHELL ABBOTT NP 03/02/25 Additional Instructions: Take antibiotics as prescribed. Return to the hospital for worsening symptoms otherwise follow up with your primary doctor. Referrals: WILY LOVE MD (PCP) Time of Disposition: 14:27 I have reviewed the case, and I agree with, Diagnosis and Plan I performed a substantive portion of the visit. I have reviewed and personally made and approve the management plan that is documented in the notes by myself with BÁRBARA/resident. I acknowledged full responsibility for the patient's management plan. RACHELL ABBOTT NP Mar 02, 2025 11:11 SALBADRO FORDE DO Mar 02, 2025 17:38
--- NOTE | 2025-03-02 12:12 | EKG ---
[facility] Test Date: 2025-03-02 Test Time: 11:53:30 Pat Name: ALEJANDRO ESTRELLA Department: ED Room: Gender: F Insulation Machine Operator: [id number] : 1945 Requested By: RACHELL ABBOTT Order Number: [id number] Reading MD: Ayah Arriaza Measurements Intervals [place] Rate: 67 P: 0 IN: 0 QRS: -33 QRSD: 132 T: 122 QT: 483 QTc: 509 Interpretive Statements Atrial fibrillation Left bundle branch block ST elevation secondary to IVCD Compared to ECG 11/10/2024 21:09:27 Sinus tachycardia no longer present ST (T wave) deviation still present Electronically Signed On 03-04-2025 08:36:14 CDT by Ayah Arriaza Please click the below link to view image of tracing.
[2025-03-02 12:13] LABS: IMMATURE GRANULOCYTE ABSOLUTE 0.02 K/uL (0-1); NUCLEATED RED BLOOD CELLS 0.0 % (0.0-0.19); PLATELET COUNT (AUTO) 176 K/uL (130-400); RED BLOOD CELL COUNT(AUTO) 4.69 MIL/uL (4.00-5.50); RED CELL DISTRIBUTION WIDTH 15.1 % (11.0-15.5); WHITE BLOOD COUNT (AUTO) 6.5 K/uL (4.8-10.8)
[2025-03-02 12:29] LABS: ERYTHROCYTE SEDIMENTATION RATE 17 MM/HR (0-30)
--- NOTE | 2025-03-02 12:50 | HMCIMG ---
EXAM: US for Deep Venous Thrombosis, bilateral Lower Extremity. CLINICAL HISTORY: Leg Pain and Swelling TECHNIQUE: Real-time ultrasound scan of the veins of the bilateral lower extremity with color Doppler flow, spectral waveform analysis and compression. COMPARISON: None provided. FINDINGS: DEEP VEINS: The common femoral, superficial femoral, and popliteal veins are echolucent and compressible. There is normal color Doppler flow throughout. The visualized calf veins appear patent. SOFT TISSUES: No popliteal fossa cyst or other abnormalities. IMPRESSION: No deep venous thrombosis evident on bilateral lower extremity examination. /[place]
[2025-03-02 13:06] LABS: CREATININE 0.8 mg/dL (0.5-1.0); GLOMERULAR FILTR. RATE CALC 74.0 mL/min (>90); GLUCOSE,RANDOM 93.0 mg/dL (70-105); SODIUM SERUM 137.0 mmol/L (136-145); UREA NITROGEN, BLOOD 15.0 mg/dL (7-18)
[2025-03-02 13:10] LABS: ASPARTATE AMINOTRANSFERASE 22.0 U/L (10-37); TOTAL PROTEIN, SERUM 6.9 g/dL (6.0-8.3)
[2025-03-02] MEDS ORDERED: CLIN-141 PO (14:27)
[2025-03-02 14:30] VITALS: BP 159/62; PULSE 91; RESP 20; TEMP 97.6; O2SAT 97
[2025-03-02] MEDS ORDERED: CEPH500T PO (14:52)
[2025-03-02 14:53] LABS: ADD UA MICROSCOPIC YES; APPEARANCE,URINE CLEAR (CLEAR); GLUCOSE, URINE (UA) NEGATIVE (NEGATIVE); LEUKOCYTE ESTERASE ,URINE NEGATIVE Leu/uL (NEGATIVE); NITRATE,URINE NEGATIVE (NEGATIVE); OCCULT BLOOD,URINE +- (TRACE) (NEGATIVE)
[2025-03-02 14:55] LABS: SQUAMOUS EPITHELIAL CELL,UR FEW /HPF (0-2)
== END 2025-03-02 15:22 | disposition home or self-care (01) ==
LOC: EDH 11:00
DX: I87.2 Venous insufficiency (chronic) (peripheral) (principal); L03.116 Cellulitis of left lower limb; L03.115 Cellulitis of right lower limb; E11.9 Type 2 diabetes mellitus without complications; I11.9 Hypertensive heart disease without heart failure; Z79.01 Long term (current) use of anticoagulants; Z79.899 Other long term (current) drug therapy; Z88.1 Allergy status to other antibiotic agents; Z88.2 Allergy status to sulfonamides; Z90.710 Acquired absence of both cervix and uterus
CPT/HCPCS: 36415; 80048; 80076; 81001; 83880; 85025; 85651; 86140; 93005; 93970; 99284; J1938

== ENCOUNTER 2025-05-30 13:07 | Inpatient (IN) | payer MEDICARE ==
[~2025-05-30] VITALS: Ht 157.5 cm; Wt 76.7 kg
[~2025-05-30 13:07] MED LIST changes: +CEPH500T PO
--- NOTE | 2025-05-30 13:20 | EKG ---
[facility] Test Date: 2025-05-30 Test Time: 13:14:29 Pat Name: ALEJANDRO ESTRELLA Department: EDH Room: ED Gender: F Department Director: [id number] : 1945 Requested By: SALBADOR FORDE Order Number: [id number] Reading MD: Dewey Oliveira Measurements Intervals [place] Rate: 71 P: 0 HI: 0 QRS: -42 QRSD: 141 T: 120 QT: 468 QTc: 515 Interpretive Statements Atrial flutter Nonspecific IVCD with LAD LVH with secondary repolarization abnormality Electronically Signed On 05-30-2025 19:11:16 BRAKE REPA[employer]RO[employer] by Dewey Oliveira Please click the below link to view image of tracing.
[2025-05-30 13:42] LABS: IMMATURE GRANULOCYTE ABSOLUTE 0.02 K/uL (0-1); NUCLEATED RED BLOOD CELLS 0.0 % (0.0-0.19); PLATELET COUNT (AUTO) 204 K/uL (130-400); RED BLOOD CELL COUNT(AUTO) 4.81 MIL/uL (4.00-5.50); RED CELL DISTRIBUTION WIDTH 16.7 % (11.0-15.5); WHITE BLOOD COUNT (AUTO) 7.5 K/uL (4.8-10.8)
[2025-05-30 13:52] LABS: ERYTHROCYTE SEDIMENTATION RATE 22 MM/HR (0-30)
[2025-05-30 14:18] LABS: CREATININE 0.9 mg/dL (0.5-1.0); GLOMERULAR FILTR. RATE CALC 65.0 mL/min (>90); GLUCOSE,RANDOM 107.0 mg/dL (70-105); SODIUM SERUM 139.0 mmol/L (136-145); UREA NITROGEN, BLOOD 18.0 mg/dL (7-18)
[2025-05-30 14:30] LABS: CREATINE KINASE, TOTAL 63.0 U/L (21-232)
[2025-05-30] MEDS ORDERED: VANCOMYCIN HCL 1.25 GM/250 ML BAG IV ONE (14:30)
--- NOTE | 2025-05-30 14:35 | ERN ---
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 Patient reports she always has a minimal swelling to the legs, mostly on the right. She reports that over the last week or two she has had a dramatic increase in the swelling. It goes all the way up to her thighs. She had also feels some mild distention in the lower abdomen. She reports difficulty lying flat. She reports pain to both legs. She reports decreased ambulation due to the swelling. She was visited by home health, and they are concerned about the swelling. He is also here erythema and tenderness to both legs. No fevers or systemic symptoms. Allergies: Coded Allergies: sulfamethoxazole (Unverified Allergy, Intermediate, REDNESS, 03/22/23) RASH trimethoprim (Unverified Allergy, Intermediate, REDNESS, 03/22/23) RASH metronidazole (Verified Allergy, Unknown, 09/18/22) Home Meds Active Scripts Cephalexin (Cephalexin) 500 Mg Tablet, 1 TAB PO BID for 10 Days, #20 TAB 0 Refills Prov:RACHELL ABBOTT NIPPLE MACHINE OPERATOR 03/02/25 Metoprolol Tartrate (Lopressor) 25 Mg Tab, 12.5 MG PO BID, #60 TAB 0 Refills Prov:HAVEN ONEAL NIPPLE MACHINE OPERATOR 08/30/23 Apixaban (Eliquis) 5 Mg Tablet, 5 MG PO BID, #60 TAB 0 Refills Prov:HAVEN ONEAL [facility] 08/30/23 Past Medical History Past Medical History: A-Fib, Diabetes-Type II, Heart Disease, Hypertension, Vascular Disease Medical History Other: SLEEP APNEA Past Surgical History: Hysterectomy, Other Surgical History Other: BLADDER LIFT, NECK Family History Family History: Negative Social History Social History: Negative Female( History) History: Not Applicable ROS Dictation CONSTITUTIONAL: No chills, no fever, no weakness, no diaphoresis, no malaise. HEAD/FACE: No signs of trauma. EENT: No eye pain, no blurred vision, no tearing, no double vision, no ear pain, no ear discharge, no nose pain, no nasal congestion, no throat pain, no throat swelling, no mouth pain. RESPIRATORY: No cough, no orthopnea, no SOB, no stridor, no wheezing. CARDIOVASCULAR: No chest pain, no edema, no palpitations, no syncope. GASTROINTESTINAL/ABDOMINAL: No abdominal pain, no constipation, no diarrhea, no nausea, no vomiting. GENITOURINARY: No abnormal discharge, no dysuria, no frequent urination, no hematuria. No complaints of pain in the genitals. MUSCULOSKELETAL: For bilateral lower leg swelling INTEGUMENTARY: No change in color, no change in hair/nails, no dryness, no lesi on, no lumps, no rash. NEUROLOGICAL/PSYCH: No anxiety, not depressed, no emotional problem, no headache, no numbness, no pre-existing deficit, no history of seizures, no tremors, no weakness. HEMATOLOGIC/LYMPHATIC: Not anemic, no history of blood clots, no apparent bleeding, no bruising, glands not swollen. All Systems Negative, Except as Noted. Physical Exam Physical Exam Dictation VITAL SIGNS: Reviewed. GENERAL APPEARANCE: Alert, oriented x3, no acute distress, obese. HEAD AND FACE: Non-traumatic. EYES: PERRL, pink conjunctivas, eyelid no trauma, anterior chamber clear. EARS: Pinnas intact and no signs of trauma or erythema. Ear canals clear and no discharge. TMs no erythema. NOSE: No discharge, no bleeding. OROPHARYNX: Mouth normal, teeth no caries, tongue pink. Pharynx clear, no erythema. Tonsils no exudates, no abscesses noted. Mucous membrane moist. NECK: Supple, non-tender, no thyromegaly, no masses, no JVD, no bruits. BREAST: Deferred. CHEST: No tenderness, no crepitus, no paradoxical movement, no retractions. LUNGS: Clear, well-ventilated, symmetric, no rales, no wheezing, no rhonchi, no stridor, good breath sounds bilaterally. HEART: Regular rate, regular rhythm, no murmur, no gallops. VASCULAR: No peripheral edema. ABDOMEN: Soft, positive bowel sounds, nondistended, no guarding, nontender, no rebound, no masses no hepatomegaly, no splenomegaly, no Black's sign, no hernias. RECTAL: Deferred. GENITAL: Deferred. NEUROLOGICAL: Normal speech, gross motor function intact, gross sensory function intact. MUSCULOSKELETAL: Bilateral lower leg swelling EXTREMITIES: Nontender, full range of motion. SKIN: Color pink, dry, no turgor, no rash, no lacerations, no abrasions, no contusions. LYMPHATICS: Deferred. Results Laboratory and Microbiology Lab and Micro Result Laboratory Tests Test 05/30/25 13:29 White Blood Count 7.5 K/uL (4.8-10.8) Red Blood Count 4.81 MIL/uL (4.00-5.50) Hemoglobin 14.6 g/dL (12.0-16.0) Hematocrit 44.5 % (36-48) Mean Corpuscular Volume 92.5 fL (79-99) Mean Corpuscular Hemoglobin 30.4 pg (27.0-33.0) Mean Corpuscular Hemoglobin Concent 32.8 g/dL (32.0-36.0) Red Cell Distribution Width 16.7 % (11.0-15.5) H Platelet Count 204 K/uL (130-400) Mean Platelet Volume 10.5 fL (7.5-10.5) Immature Granulocyte % (Auto) 0.3 % (0-1) Neutrophils (%) (Auto) 63.9 % (40.0-77.0) Lymphocytes (%) (Auto) 21.4 % (21.0-51.0) Monocytes (%) (Auto) 11.7 % (3.0-13.0) Eosinophils (%) (Auto) 2.0 % (0.0-8.0) Basophils (%) (Auto) 0.7 % (0.0-5.0) Neutrophils # (Auto) 4.8 K/uL (1.8-7.7) Lymphocytes # (Auto) 1.6 K/uL (1.0-4.8) Monocytes # (Auto) 0.9 K/uL (0.1-1.0) Eosinophils # (Auto) 0.15 K/uL (0.00-0.70) Basophils # (Auto) 0.05 K/uL (0.00-0.20) Absolute Immature Granulocyte (auto 0.02 K/uL (0-1) Nucleated Red Blood Cells 0.0 % (0.0-0.19) Erythrocyte Sedimentation Rate 22 MM/HR (0-30) Sodium Level 139 mmol/L (136-145) Potassium Level 4.7 mmol/L (3.5-5.1) Chloride Level 106 mmol/L (101-111) Carbon Dioxide Level 27 mmol/L (21-32) Blood Urea Nitrogen 18 mg/dL (7-18) Creatinine 0.9 mg/dL (0.5-1.0) Glomerular Filtration Rate Calc 65 mL/min (>90) Random Glucose 107 mg/dL (70-105) H Total Calcium 8.7 mg/dL (8.5-10.1) Total Creatine Kinase 63 U/L (21-232) # Troponin I High Sensitivity 56.9 ng/L (4-50) *H C-Reactive Protein, Quantitative 5.10 mg/L (0.5-3.0) H MDM CC: Pedal edema, dyspnea on exertion, swelling to lines Historian: Patient Comorbidities: Advanced age, leaky valves in the heart, hypertension Limitations by social determinants of health: None Differential diagnosis: Edema, anasarca, liver disease, CHF, kidney disease, cellulitis, other Vital signs: Mild hypertension 166/89, otherwise stable. Clinically patient has gopi anasarca in her legs to lower abdomen. Mild crackles at the bases. It is erythematous, concern for cellulitis. Tender to touch. Warm. EKG: Atrial fibrillation, rate of 71, left axis deviation, poor R-wave progression, left bundle-branch block, LVH, and no STEMI. Independently interpreted by me CXR: No cardiomegaly pleural effusions focal infiltrates. Some increased vascular markings. Independently interpreted by me. Labs no leukocytosis no shift no anemia. Chemistry shows normal electrolytes normal renal function. Troponin mildly elevated at 57. CRP five ESR normal. Clinically patient has a anasarca fluid overload. Possibly CHF exacerbation. Possibly infected cellulitis. Patient will need diuresis. Started IV Lasix here in the ER. This is a Zosyn. Plan will be to admit for diuresis and further evaluation. IV antibiotics. Hospitalist consulted. ED Course Orders Procedure Category Date Status Time Cardiac Panel LAB 05/30/25 Complete 13:12 Cbc With Differential LAB 05/30/25 Complete 13:12 Basic Metabolic Panel LAB 05/30/25 Complete 13:12 Urinalysis Profile LAB 05/30/25 Logged 13:12 Chest 1vw RAD 05/30/25 Resulted 13:12 12 Lead Ekg Tracing- EKG 05/30/25 Complete Technical 13:12 Erythrocyte Sed Rate LAB 05/30/25 Complete 13:12 Crp Quantitative LAB 05/30/25 Complete 13:12 Zosyn 3.375gm+Ns 50ml PHA 05/30/25 In Process (Zosyn 3.375gm+Ns 14:30 Furosemide 40mg Vial PHA 05/30/25 In Process (Lasix 40mg Vial) 14:30 Us Venous Doppler US 05/30/25 Taken Bilateral 14:33 Vancomycin 1.25 PHA 05/30/25 In Process Gm/250 Ml Bag 15:30 Current Medications Medications (Trade) Dose Ordered Sig/Fatuma Route PRN Reason Start Time Stop Time Status Last Admin Dose Admin Furosemide (LASix 40MG VIAL) 40 mg Q8H IV 05/30/25 14:30 06/29/25 14:29 05/30/25 15:21 Piperacillin Sod/ Tazobactam Sod (Zosyn 3.375gm+NS 50ml) 3.375 gm Q8H IV 05/30/25 14:30 06/09/25 14:29 05/30/25 15:21 Vancomycin HCl 250 ml @ 125 mls/hr ONCE ONCE IV 05/30/25 15:30 05/30/25 17:29 Vancomycin HCl (Vancomycin 1.25 Gm/250 ml Bag) 1.25 gm ONCE ONCE IV 05/30/25 14:30 05/30/25 14:31 Cancel Vital Signs Date Time Temp Pulse Resp B/P (MAP) Pulse Ox O2 Delivery O2 Flow Rate FiO2 05/30/25 14:00 97 16 153/78 98 Room Air* 0 21 05/30/25 13:11 98.6 75 16 166/89 98 Room Air 0 DX & DISP Disposition: Inpatient Departure Impression: Primary Impression: Anasarca Additional Impressions: Fluid overload, Bilateral lower leg cellulitis Condition: Stable Referrals: WILY LOVE MD (PCP) SALBADOR FORDE DO May 30, 2025 14:35
--- NOTE | 2025-05-30 15:02 | HMCIMG ---
STUDY CR Chest, 1 view. CLINICAL HISTORY Chest pain. TECHNIQUE Single frontal radiograph of the chest. COMPARISON Chest radiograph 11/12/2024 05:30 EDT. FINDINGS LUNGS There is an elevated right hemidiaphragm with associated right basilar atelectasis. No new focal consolidation, mass, or acute pulmonary abnormality is identified. PLEURAL SPACES No pleural effusion or pneumothorax. MEDIASTINUM Cardiomegaly is present with prominent pulmonary vascular markings compatible with pulmonary vascular congestion. Overall cardiomediastinal contours are otherwise unchanged. BONES AND DEVICES No acute osseous abnormality. Partially visualized cervical spine fusion hardware is noted. IMPRESSION * Cardiomegaly with pulmonary vascular congestion and elevated right hemidiaphragm with right basilar atelectasis, all unchanged compared with 11/12/2024. * No new acute cardiopulmonary abnormality identified. /[place]
[2025-05-30] MEDS: ZOSYN 3.375GM +NS 50ML IV SCH (15:21)
--- NOTE | 2025-05-30 15:56 | HMCIMG ---
EXAM: US for Deep Venous Thrombosis, bilateral Lower Extremity. CLINICAL HISTORY: Leg Pain and Swelling TECHNIQUE: Real-time ultrasound scan of the veins of the bilateral lower extremity with color Doppler flow, spectral waveform analysis and compression. COMPARISON: Study dated 03/02. FINDINGS: DEEP VEINS: The common femoral, superficial femoral, and popliteal veins are echolucent and compressible. There is normal color Doppler flow throughout. The visualized calf veins appear patent. SOFT TISSUES: No popliteal fossa cyst or other abnormalities. IMPRESSION: 1. No evidence of deep venous thrombosis in the bilateral lower extremities. /[place]
[2025-05-30] MEDS ORDERED: PHARMACY COMMUNICATION MISC SCH (16:00)
[2025-05-30 16:05] LABS: INR 1.15 (0.85-1.15)
[2025-05-30 16:25] LABS: APPEARANCE,URINE CLEAR (CLEAR); CREATININE,URINE RANDOM 21.67 mg/dL (30-135); GLUCOSE, URINE (UA) NEGATIVE (NEGATIVE); LEUKOCYTE ESTERASE ,URINE NEGATIVE Leu/uL (NEGATIVE); NITRATE,URINE NEGATIVE (NEGATIVE); OCCULT BLOOD,URINE NEGATIVE (NEGATIVE); PROTEIN,URINE RANDOM 22.9 mg/dL (0-11.9)
[2025-05-30 16:26] LABS: ADD UA MICROSCOPIC YES
[2025-05-30 16:26] LABS: ASPARTATE AMINOTRANSFERASE 57.0 U/L (10-37); TOTAL PROTEIN, SERUM 7.6 g/dL (6.0-8.3)
[2025-05-30 16:27] LABS: SQUAMOUS EPITHELIAL CELL,UR RARE /HPF (0-2)
--- NOTE | 2025-05-30 16:37 | CONS ---
[facility] Cardiology Consultation Note Cardiology consult dictated for Nikki Aguilar MD Date of service 05/30/2025 Primary esters and emulsifiers supervisor: Dr. Nikki Aguilar Chief complaint: Lower extremity edema Reason for consult: Congestive heart failure History of present illness: 80 year old female presented to ER due to one week of lower extremity edema extending to thigh level. She has been experiencing shortness of breath and orthopnea like symptoms. Cardiology consult was requested for evaluation of possible CHF. 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 BNP on arrival was 733 and troponin 56.9 and normal renal function. Chest x-ray demonstrated cardiomegaly with pulmonary vascular congestion, venous Doppler with no evidence of DVT. She denies chest pain, no palpitations or syncope. Admits to not taking furosemide home dose regularly. She is pending echocardiogram as out patient. Review of systems: 14 point review of systems performed pertinent positives and negatives discussed in HPI Allergies: The patient is allergic to metronidazole, sulfamethoxazole and trimethoprim Past medical history: Positive for mild aortic stenosis, moderate 2+ aortic insufficiency, hypertension, persistent atrial fibrillation on chronic anticoagulation, platelet dysfunction, chronic venous insufficiency, mild peripheral arterial disease, May-Thurner syndrome. Negative for CVA TIA no PE no DVT. Past surgical history: Positive for left common and external iliac vein stent placement March 2022, bladder surgery, hysterectomy Family history: Noncontributory Social history: Patient denies tobacco alcohol or illicit drug use Medications: Vancomycin IV, metoprolol tartrate 12.5 mg p.o. b.i.d., Eliquis 5 mg p.o. b.i.d., furosemide 40 mg IV b.i.d. Review of blood work: CBC with white blood cells of 7.5, hemoglobin 14.6, hematocrit of 44.5, platelets of 204. Metabolic panel with sodium of 139, potassium 4.7, BUN of 18, creatinine of 0.9 and a GFR of 65. Troponin high sensitivity 56.9 BNP 733. 12 lead EKg : Atrial fibrillation with controlled rate. No ST-T wave abnormal ities. Physical exam BP 163/70 with heart rate 91bpm and irregular, 1/6 systolic murmur over aortic area. BBS with scattered rales. No jvd, no carotid bruit noted. Lower extremities with +3 pitting edema, hot to touch and redness noted. She is alert, awake and oriented. All others WNL. Assessment: Fluid overload (BNP 733) Cellulitis bilateral legs History of May Thurner syndrome with left common and external iliac vein stent placement March 2022 Mild aortic stenosis, moderate 2+ aortic insufficiency Hypertension Persistent atrial fibrillation on chronic AC Plan: 80 year old female presented for evaluation of edema, dyspnea, orthopnea like symptoms. BNP on admission 733 and admits to not taking diuretic as prescribed. Primary team started IV Vancomycin for lower extremity cellulitis. She can be placed on fluid restriction, daily weights, strict I &O, BMP daily x3. Primary team ordered echocardiogram and we will review once available. The patient has significant edema of the lower extremities and has been noncompliant with her diuretic at home. She has chronic venous insufficiency and may Thurner syndrome. We will diurese with furosemide. A 2D echo has been worried to assess for a cardiac component to her fluid overload. We will review results when available. ATTESTATION BY PHYSICIAN I have seen and examined the patient. I reviewed the documentation, medical decision making, and treatment plan as noted by the mid-level provider above. I agree with the findings and plan of care. NIKKI AGUILAR MD, [facility] May 30, 2025 16:37 NIKKI AGUILAR MD May 30, 2025 18:50
[2025-05-30] MEDS: VANCOMYCIN 1.25 GM/250 ML BAG 250 ML IV ONE (16:39)
[2025-05-30 17:03] LABS: LDL DIRECT 58 mg/dL (0-99)
--- NOTE | 2025-05-30 18:25 | HP ---
[facility] HISTORY AND PHYSICAL Date of Service: May 30, 2025 Time of Service: 18:16 HISTORY OF PRESENT ILLNESS: Date of service: 05/30/2025, patient was seen in ER room 10 This 80-year-old female with underlying history of aortic insufficiency, history of persistent atrial fibrillation maintained on chronic anticoagulation with Eliquis, peripheral arterial disease, May-Thurner syndrome syndrome who presented to the ER for further evaluation of severe lower extremity edema with erythema and shortness of breadth. Symptoms have been ongoing for the past one week. , patient has noticed that her legs have been significantly swollen extending into the thighs. She has been having PND, orthopnea and shortness of breadth minimal activity. She is unable to ambulate due to significant lower extremity swelling. She does have history of chronic lower extremity edema which is usually minimal and she has been maintained on outpatient treatment with Lasix 20 mg daily. Patient denies any falls. She denies any focal weakness of upper or lower extremities. She has been maintained on anticoagulation with Eliquis chronically for management of atrial fibrillation. She also reports taking metoprolol tartrate 12.5 mg b.i.d.. She does report having some chronic wound involving the right lower extremity which is healing well. On presentation to the hospital, patient was noted to be afebrile with T-max of 98.6 F, heart rate of 75, blood pressure 166/89. Labs on presentation showed WBC count of 7500, hemoglobin 14.6, platelet count of 204 ,000. BMP showed sodium of 139, potassium 4.7, chloride of 106, creatinine of 0.9, BNP of 733. Patient will be admitted for further management of decompensated heart failure exacerbation with significant volume overload. Patient with bilateral lower extremity venous stasis dermatitis with venous insufficiency with findings of lower extremity cellulitis. Patient will receive IV diuretics, we will be started on broad-spectrum antibiotics. Consultation with Cardiology Infectious Disease will be requested. We will see how patient progresses in the next 48-72 hours. REVIEW OF SYSTEMS CONSTITUTIONAL: Denies fevers, chills, or night sweats. No unintentional weight loss reported. NEUROLOGICAL: Denies headache, amaurosis fugax, motor weakness, sensory deficit, vertigo/spinning sensation, gait abnormalities, or tremors. ENT: No hearing loss, otalgia, otorrhea, rhinitis, rhinorrhea, hoarseness, or sore throat. CARDIOVASCULAR: Shortness of breadth with minimal ambulation, PND, orthopnea, progressive lower extremity edema PULMONARY: Denies any shortness of breath, cough, phlegm/sputum, hemoptysis, pleuritic chest pain. SLEEP: Denies morning headaches, daytime somnolence or napping. Denies difficulty falling asleep, staying asleep, waking from sleep. Denies knowledge of snoring. GASTROINTESTINAL: Denies any type of dysphagia to either liquids or solids. Denies nausea, vomiting, pyrosis, early satiety, abdominal pain, diarrhea, constipation, or changes in stool consistency or caliber. Denies coffee-ground emesis, hematemesis, hematochezia, or melanotic stools. GENITOURINARY: Denies frequency, urgency, nocturia, hematuria or incontinence (Storage/Irritative symptoms.) Low urinary stream, straining to void, urinary intermittency or hesitancy, splitting of the voiding stream, terminal dribbling. ENDOCRINOLOGIC: Denies polyuria, polydipsia, polyphagia or heat/cold intolerances. HEMATOLOGIC: Denies thrombophilia/previous clots, or coagulopathy/bleeding disorders. ONCOLOGIC: Denies personal history of malignancy. DERMATOLOGIC: Significant redness, warmth involving the bilateral lower extremities PSYCHIATRIC: Denies any suicidal or homicidal ideation. Denies hallucinations. Past medical history significant for mild aortic stenosis, moderate aortic insufficiency, hypertension, persistent atrial fibrillation maintained on chronic anticoagulation with Eliquis, chronic venous insufficiency, peripheral arterial disease, May-Thurner syndrome Past surgical history: Left common and external iliac vein stent in 03/2022, history of bladder surgery, hysterectomy, history of surgery involving the neck Family history no pertinent family history Social history: Denies active smoking or tobacco use. Uses a walker to a mbulate Home medications: Metoprolol 12.5 mg b.i.d., Eliquis5 mg b.i.d., furosemide 20 mg daily Coded Allergies: sulfamethoxazole (Unverified Allergy, Intermediate, REDNESS, 03/22/23) RASH trimethoprim (Unverified Allergy, Intermediate, REDNESS, 03/22/23) RASH metronidazole (Verified Allergy, Unknown, 09/18/22) PHYSICAL EXAM GENERAL APPEARANCE: The patient is awake, alert, and oriented, in no acute cardiopulmonary distress. NEUROLOGICAL: Cranial nerves II-XII grossly intact. Motor is 5/5 in bilateral upper and lower extremities proximal to distal. No sensory deficits. HEENT: Face is symmetric. Pupils are equal and reactive. Extraocular movements are intact. NECK: Supple. No JVD. No thyromegaly. No submental, submandibular, pre- /postauricular, occipital or supraclavicular lymphadenopathy. CHEST: Normal chest expansion. No Telemetry. LUNGS: Crackles noted of bilateral lower lung bases CARDIOVASCULAR: Regular. S1 and S2 normal. No appreciable rubs, murmurs or gallops. ABDOMEN: Soft, nontender, and nondistended. There is no rebound, voluntary guarding, or rigidity. : Deferred. No Schmitz. EXTREMITIES: 3+ pitting edema noted at bilateral lower extremities with edema extending into the thighs with significant erythema noted SKIN: As noted above Vital Sign (Last 24 Hours) 05/30/25 16:50 Temp 98.6 Pulse 91 Resp 16 B/P (MAP) 163/70 Pulse Ox 98 O2 Delivery Room Air* O2 Flow Rate 0 FiO2 21 LABS: Laboratory: Test 05/30/25 16:26 05/30/25 16:12 05/30/25 13:29 Range/Units C-Reactive Protein, Quantitative 5.70 H 0.5-3.0 mg/L Triglycerides Level 69 30-200 mg/dL Cholesterol Level 116 # <200 mg/dL LDL Cholesterol 58 0-99 mg/dL HDL Cholesterol 41 35-85 mg/dL Urine Color LIGHT-YELLOW YELLOW Urine Appearance CLEAR CLEAR Urine pH 7.5 5.0-8.0 Urine Specific [place] 1.008 1.001-1.031 Urine Protein NEGATIVE NEGATIVE mg/dL Urine Glucose (UA) NEGATIVE NEGATIVE mg/dL Urine Ketones NEGATIVE NEGATIVE mg/dL Urine Occult Blood NEGATIVE NEGATIVE Urine Nitrate NEGATIVE NEGATIVE Urine Bilirubin NEGATIVE NEGATIVE mg/dL Urine Urobilinogen 0.2 0.2-1.0 mg/dL Urine Leukocyte Esterase NEGATIVE NEGATIVE Teresa/uL Urine RBC 2-5 H 0-1 /HPF Urine WBC 2-5 H 0-1 /HPF Urine Squamous Epithelial Cells RARE 0-2 /HPF Urine Bacteria None None Seen /HPF Urine Random Creatinine 21.67 L 30-135 mg/dL Urine Random Total Protein 22.9 H 0-11.9 mg/dL White Blood Count 7.5 4.8-10.8 K/uL Red Blood Count 4.81 4.00-5.50 MIL/uL Hemoglobin 14.6 12.0-16.0 g/dL Hematocrit 44.5 36-48 % Mean Corpuscular Volume 92.5 79-99 fL Mean Corpuscular Hemoglobin 30.4 27.0-33.0 pg Mean Corpuscular Hemoglobin Concent 32.8 32.0-36.0 g/dL Red Cell Distribution Width 16.7 H 11.0-15.5 % Platelet Count 204 130-400 K/uL Mean Platelet Volume 10.5 7.5-10.5 fL Immature Granulocyte % (Auto) 0.3 0-1 % Neutrophils (%) (Auto) 63.9 40.0-77.0 % Lymphocytes (%) (Auto) 21.4 21.0-51.0 % Monocytes (%) (Auto) 11.7 3.0-13.0 % Eosinophils (%) (Auto) 2.0 0.0-8.0 % Basophils (%) (Auto) 0.7 0.0-5.0 % Neutrophils # (Auto) 4.8 1.8-7.7 K/uL Lymphocytes # (Auto) 1.6 1.0-4.8 K/uL Monocytes # (Auto) 0.9 0.1-1.0 K/uL Eosinophils # (Auto) 0.15 0.00-0.70 K/uL Basophils # (Auto) 0.05 0.00-0.20 K/uL Absolute Immature Granulocyte (auto 0.02 0-1 K/uL Nucleated Red Blood Cells 0.0 0.0-0.19 % Erythrocyte Sedimentation Rate 22 0-30 MM/HR Prothrombin Time 12.0 H 9.6-11.6 SEC Prothromb Time International Ratio 1.15 0.85-1.15 Activated Partial Thromboplast Time 30.1 26.3-35.5 SEC Sodium Level 139 136-145 mmol/L Potassium Level 4.7 3.5-5.1 mmol/L Chloride Level 106 101-111 mmol/L Carbon Dioxide Level 27 21-32 mmol/L Blood Urea Nitrogen 18 7-18 mg/dL Creatinine 0.9 0.5-1.0 mg/dL Glomerular Filtration Rate Calc 65 >90 mL/min Random Glucose 107 H 70-105 mg/dL Hemoglobin A1c 5.8 4.0-6.0 % Estimated Average Glucose (eAG) 120 70-126 mg/dL Total Calcium 8.7 8.5-10.1 mg/dL Magnesium Level 1.90 1.80-2.40 mg/dL Total Bilirubin 2.6 H 0.2-1.0 mg/dL Direct Bilirubin 0.3 0.0-0.3 mg/dL Aspartate Amino Transf (AST/SGOT) 57 H 10-37 U/L Alanine Aminotransferase (ALT/SGPT) 19 12-78 U/L Alkaline Phosphatase 190 H 50-136 U/L Lactate Dehydrogenase 497 H 81-234 U/L Total Creatine Kinase 63 # 21-232 U/L Troponin I High Sensitivity 56.9 *H 4-50 ng/L B-Type Natriuretic Peptide 733 H 0-100 pg/mL Total Protein 7.6 6.0-8.3 g/dL Albumin 3.0 L 3.5-5.0 g/dL Procalcitonin < 0.05 L 0.05-0.5 ng/mL Thyroid Stimulating Hormone (TSH) 2.55 # 0.36-3.74 uIU/mL Current Medications Medications (Trade) Dose Ordered Sig/Fatuma Route PRN Reason Start Time Stop Time Status Last Admin Dose Admin Acetaminophen (TYLenol 325MG TAB) 650 mg Q6H PRN PO MILD PAIN (1-3) 05/30/25 16:00 06/29/25 15:59 Apixaban (EliquIS) 5 mg BID PO 05/30/25 21:00 06/29/25 20:59 Cefepime HCl (MAXipime 2 gm vial) 2 gm Q24H IVPB 05/30/25 16:30 06/09/25 16:29 05/30/25 16:40 2 GM Furosemide (LASix 40MG VIAL) 40 mg BID IV 05/30/25 21:00 06/29/25 20:59 Furosemide (LASix 40MG VIAL) 40 mg Q8H IV 05/30/25 14:30 05/30/25 15:56 DC 05/30/25 15:21 40 MG Labetalol HCl (TRANdate 20MG SYG) 10 mg Q6H PRN IV sor SBP> 170 05/30/25 16:00 06/29/25 15:59 Magnesium Sulfate 50 ml @ 0 mls/hr PROTOCOL IV 05/30/25 18:30 06/29/25 18:29 Metoprolol Tartrate (loprESSOR) 12.5 mg BID PO 05/30/25 21:00 06/29/25 20:59 Ondansetron HCl (zoFRAN 4MG INJ) 4 mg Q6H PRN IVP NAUSEA/VOMITING 05/30/25 16:00 06/29/25 15:59 Pharmacy Profile Note (Pharmacy Communication) 1 each ONCE MISC 05/30/25 16:00 05/30/25 16:26 DC Piperacillin Sod/ Tazobactam Sod (Zosyn 3.375gm+NS 50ml) 3.375 gm Q8H IV 05/30/25 14:30 05/30/25 16:06 DC 05/30/25 15:21 3.375 GM Potassium Chloride 100 ml @ 100 mls/hr AD PRN IV POTASSIUM PROTOCOL 05/30/25 18:30 06/29/25 18:29 Potassium Chloride (K-Dur/Klor-Con 20meq) 20 meq AD PRN PO POTASSIUM PROTOCOL 05/30/25 18:30 06/29/25 18:29 Potassium Chloride (KCl 10% Elixir 20meq/15ml) 20 meq AD PRN PO POTASSIUM PROTOCOL 05/30/25 18:30 06/29/25 18:29 Vancomycin HCl 250 ml @ 125 mls/hr Q24H IV 05/31/25 16:30 06/10/25 16:29 DIAGNOSTICS / RADIOLOGY: SERVICE 1312 REASON: cp ORDERING PHYSICIAN: SALBADOR FORDE DO PROCEDURE: CXR1VW - CHEST 1VW STUDY CR Chest, 1 view. CLINICAL HISTORY Chest pain. TECHNIQUE Single frontal radiograph of the chest. COMPARISON Chest radiograph 11/12/2024 05:30 EDT. FINDINGS LUNGS There is an elevated right hemidiaphragm with associated right basilar atelectasis. No new focal consolidation, mass, or acute pulmonary abnormality is identified. PLEURAL SPACES No pleural effusion or pneumothorax. MEDIASTINUM Cardiomegaly is present with prominent pulmonary vascular markings compatible with pulmonary vascular congestion. Overall cardiomediastinal contours are otherwise unchanged. BONES AND DEVICES No acute osseous abnormality. Partially visualized cervical spine fusion hardware is noted. IMPRESSION * Cardiomegaly with pulmonary vascular congestion and elevated right hemidiaphragm with right basilar atelectasis, all unchanged compared with 11/12/2024. * No new acute cardiopulmonary abnormality identified. /[place] DICTATED BY: JOSH ARANGO DO DATE: 05/30/25 160 ELECTRONICALLY SIGNED BY: JOSH ARANGO DO DATE: 05/30/25 160 ASSESSMENT: Decompensated heart failure exacerbation with history of diastolic dysfunction, POA History of aortic insufficiency and aortic stenosis, POA Bilateral lower extremity cellulitis, POA Significant volume overload, POA History of hypertension, POA History of hyperlipidemia, POA History of healing wound in one two the right lower extremity, POA History of bilateral lower extremity venous stasis dermatitis with history of venous insufficiency, POA History of May-Thurner syndrome status post external iliac venous stent in 03/30, POA History of peripheral arterial disease, POA PLAN: Patient will be admitted to cardiac telemetry floor We will start patient on IV diuresis with Lasix 40 mg b.i.d. We will obtain a 2D echocardiogram We will start broad-spectrum antibiotics with IV vancomycin/cefepime We will keep patient on fluid restrictions of less than 1.5 L daily Consultation cardiology Infectious Disease will be requested We will check urine protein to creatinine ratio to ensure there is no significant proteinuria contributing towards a volume overloaded state Continue with patient's home dose of metoprolol tartrate 12.5 mg b.i.d. and Eliquis5 mg b.i.d. We will request PT consultation tomorrow for patient to be placed out of bed to chair We will keep patient on potassium and magnesium protocol, electrolytes will be aggressively repleted All labs will be repeated in the morning, we will see how patient progresses in the next 48-72 hours Date of service: 05/30/2025 Plan of care was discussed with patient and family at bedside, Yogesh Lee MD Advanced Care Planning: Which of the following were discussed: Hospice care: Yes __ No _x_ Therapeutic options: Yes _x_ No __ Advance directives: Yes _x_ No __ Other discussions: Discussed with who?: Patient Voluntary nature of this service was explained to the patient? Yes _x_ No __ Amount of time spent: 20 minutes YOGESH LEE MD May 30, 2025 18:25
[2025-05-30] MEDS: MAGNESIUM 2GM PREMIX 50ML 50 ML IV SCH (20:14)
--- NOTE | 2025-05-31 00:10 | HMCIMG ---
EXAM Renal ultrasound CLINICAL INDICATION R/O any renal abnormalities, volume overload (Hx). COMPARISON None. TECHNIQUE Grayscale ultrasound images of the kidneys and urinary bladder were obtained. RIGHT KIDNEY The right kidney measures approximately 10.1 x 3.8 x 5.2 cm. Renal cortical thickness and echogenicity are normal. No hydronephrosis is identified. No renal calculi or focal renal mass is identified. LEFT KIDNEY The left kidney measures approximately 10.6 x 4.4 x 4.9 cm. Renal cortical thickness and echogenicity are normal. No hydronephrosis is identified. No renal calculi or focal renal mass is identified. URINARY BLADDER The urinary bladder is partially distended. The bladder wall appears normal in thickness. No intraluminal mass or calculus is identified. IMPRESSION * Normal sonographic appearance of the kidneys without hydronephrosis, renal calculi, or focal renal mass. * Unremarkable urinary bladder. RECOMMENDATIONS * No further imaging is recommended at this time per ACR Appropriateness Criteria in the absence of persistent or worsening symptoms. * If flank pain persists or clinical suspicion for urinary tract pathology remains high, further evaluation with CT may be considered as clinically indicated. /[place]
[2025-05-31 06:11] LABS: IMMATURE GRANULOCYTE ABSOLUTE 0.01 K/uL (0-1); NUCLEATED RED BLOOD CELLS 0.0 % (0.0-0.19); PLATELET COUNT (AUTO) 184 K/uL (130-400); RED BLOOD CELL COUNT(AUTO) 4.63 MIL/uL (4.00-5.50); RED CELL DISTRIBUTION WIDTH 16.9 % (11.0-15.5); WHITE BLOOD COUNT (AUTO) 7.1 K/uL (4.8-10.8)
[2025-05-31 06:23] LABS: CREATININE 1.0 mg/dL (0.5-1.0); GLOMERULAR FILTR. RATE CALC 57.0 mL/min (>90); GLUCOSE,RANDOM 101.0 mg/dL (70-105); SODIUM SERUM 143.0 mmol/L (136-145); UREA NITROGEN, BLOOD 20.0 mg/dL (7-18)
[2025-05-31] MEDS: PoTASSium chl 10% ELIXIR 20MEQ 20 MEQ/15 ML UDCUP PO PRN (06:46)
[2025-05-31] MEDS: PoTASSium chloRIDE 20MEQ ER 20 MEQ ERTAB PO PRN (06:46)
--- NOTE | 2025-05-31 07:02 | NUR ---
REPORT RECEIVED FROM JESSIE RAYA
--- NOTE | 2025-05-31 07:30 | NUR ---
ASSESSMENT: PT FOUND AWAKE AND ALERT ON A REGULAR HOSPITAL BED. BED LOW/LOCKED AND HOB ONLY SLIGHTLY ELEVATED. INTEGUMENTARY/ORTHO: PT LE'S HAVE ERYTHEMA BILATERALLY TO LE'S. SKIN LOOKS "LEATHERY". NO DRAINAGE OR LEAKAGE NOTED TO THE SKIN ON THE LE'S. PT STATES THIS HAS BEEN GOING ON FOR A LONG WHILE. SHE STATES SHE IS "BARELY" AMBULATORY AT HOME. THAT IT IS A CHRONIC CONDITION. PT STATES SHE HAS A HEALED SKIN LESION TO THE R OUTER ANKLE. NO VISIBLE SCAR NOTED AT THIS TIME. OTHERWISE, SKIN IS CURRENTLY INTACT. PT ABLE TO MOVE UE'S W/OUT ANY ISSUES. SKIN ON HANDS ARE SLIGHTLY COOL TO PALPATION. CARDIO/RESPIRATORY: PT CURRENTLY DENIES ANY CHEST PAIN. + PULSES TO BILATERAL RADIAL SITES AT 2+ AND 1+ TO THE BILATERAL DORSALIS PEDAL SITES. CAP REFILL IS LESS THAN 3 SECONDS ON HER HANDS BILATERALLY. IRREGULAR HEART RHYTHM APICALLY AUSCULTATED. PT APPEARS TO BE A FIB WHEN JUST NOW PLACED ON THE FRONT SERVICES AGENT. LS ARE CLEAR TO AUSCULTATION TO ALL LUNG JOHNSON, JUST A BIT DIMINISHED TO THE BASES BILATERALLY. NO CYANOSIS NOTED TO NAIL BEDS. NO USE OF ACCESSORY MUSCLES NOTED. NO STERNAL RETRACTIONS. GI/: PT CURRENTLY HAS A PUREWIK IN PLACE AND THERE IS YELLOW CLEAR URINE IN THE CONTAINER (200ML). PT DENIES ANY ABD DISCOMFORT CURRENTLY. ABD IS SOFT TO PALPATION AND +BS X 4 QUADRANTS. THERE IS A BEDSIDE COMMODE SHOULD SHE NEED IT. NEURO: PT IS NEUROLOGICALLY INTACT. SHE IS A/O X 4. PT MOVES UPPER EXTREMITIES W/NO ISSUE BUT HAS SOME DIFFICULTY TO THE LE'S. GCS 15
--- NOTE | 2025-05-31 07:49 | PN ---
[facility] Cardiology Progress Note CARDIOLOGY PROGRESS NOTE MAY 31, [address] Aguilar Problems: 1. Bilateral lower extremity cellulitis 2. Chronic venous insufficiency and noncompliance with diuretic use 3. 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 Mild aortic stenosis moderate aortic insufficiency on prior echo 5. Hypertension 6. Persistent atrial fibrillation 7. Chronic anticoagulation The patient has been noncompliant with her diuretics and came in with severe 3+ bilateral edema and cellulitis of the lower extremities. This morning blood pressure is ranging between 130 and 160 systolic. Heart rate is in the 80s and the patient is afebrile. White count 7.1 Hemoglobin platelet count [id number]. Potassium 2.9 BUN 20 creatinine 1.0. Brain natriuretic peptide was modestly elevated at 730 on admission. Troponin was slightly elevated at 57 however, the patient gave no history of angina. Venous Dopplers showed no evidence of deep vein thrombosis. A renal sonogram has been ordered and was normal. 2D echocard iogram is currently pending to reassess her aortic valve and LV function. In the interim the patient continues on apixaban5 mg b.i.d. antibiotics furosemide 40 mg b.i.d. metoprolol tartrate potassium protocol. I would recommend the addition of mg daily for better blood pressure control. Her 2D echocardiogram when available. NIKKI AGUILAR MD May 31, 2025 07:49
--- NOTE | 2025-05-31 07:58 | NUR ---
CARDIOLOGY CONSULT: DR AGUILAR JUST ARRIVED AND IS AT BEDSIDE W/PT.
--- NOTE | 2025-05-31 08:04 | NUR ---
CASE MANAGEMENT MARII COLUNGA IS CURRENTLY AT BEDSIDE W/PT.
--- NOTE | 2025-05-31 08:09 | NUR ---
PT WAS PROVIDED HER BREAKFAST TRAY. SHE ASKED FOR AND ACCEPTED WIPES FOR HER HANDS AND WAS REPOSITIONED IN BED FOR COMFORT TO EAT WELL.
--- NOTE | 2025-05-31 08:54 | NUR ---
DCP: HOME Pt lives in her apt, alone, gets $33 in food stamps. PCP is Simon Saavedra, uses [facility] on [address]. P has a daily provider to help her as needed with her ADLS, home management and meal prep.Family transports as needed. Pt has a walker, w/c, shower chair and bsc at home. Pt sates she has HH for wound care and nursing, doesn't know name but their location. SW called [facility] [phone] and verified that they have pt on services. Pt is currently active and they are aware of pt's admission, their nurse sent pt in for eval yesterday.
[2025-05-31 09:08] LABS: CREATININE 0.8 mg/dL (0.5-1.0); GLOMERULAR FILTR. RATE CALC 74.0 mL/min (>90); GLUCOSE,RANDOM 104.0 mg/dL (70-105); SODIUM SERUM 141.0 mmol/L (136-145); UREA NITROGEN, BLOOD 18.0 mg/dL (7-18)
--- NOTE | 2025-05-31 09:15 | NUR ---
2 D SPINDLE MAKER CURRENTLY AT BEDSIDE
--- NOTE | 2025-05-31 10:27 | NUR ---
WOUND MANAGEMENT CONSULT I JUST SPOKE TO DR EISENBERG ABOUT HIS CONSULT.
--- NOTE | 2025-05-31 10:53 | NUR ---
DR HICKMAN WAS IN TO SEE THE PT.
--- NOTE | 2025-05-31 10:56 | PN ---
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 Symptoms have been ongoing for the past one week. , patient has noticed that her legs have been significantly swollen extending into the thighs. She has been having PND, orthopnea and shortness of breadth minimal activity. She is unable to ambulate due to significant lower extremity swelling. She does have history of chronic lower extremity edema which is usually minimal and she has been maintained on outpatient treatment with Lasix 20 mg daily. Patient denies any falls. She denies any focal weakness of upper or lower extremities. She has been maintained on anticoagulation with Eliquis chronically for management of atrial fibrillation. She also reports taking metoprolol tartrate 12.5 mg b.i.d. She does report having some chronic wound involving the right lower extremity which is healing well. On presentation to the hospital, patient was noted to be afebrile with T-max of 98.6 F, heart rate of 75, blood pressure 166/89. Labs on presentation showed WBC count of 7500, hemoglobin 14.6, platelet count of 204 ,000. BMP showed sodium of 139, potassium 4.7, chloride of 106, creatinine of 0.9, BNP of 733. Patient will be admitted for further management of decompensated heart failure exacerbation with significant volume overload. Patient with bilateral lower extremity venous stasis dermatitis with venous insufficiency with findings of lower extremity cellulitis. Patient will receive IV diuretics, we will be started on broad-spe ctrum antibiotics. Consultation with Cardiology Infectious Disease will be requested. We will see how patient progresses in the next 48-72 hours. 05/31/2025: Patient was seen and evaluated this morning, no family at bedside. He is awake, alert, oriented x3, saturating 98% with room air. Patient said that her bilateral lower extremity swelling has been increasing significantly over past1 week, patient has red, dry, severe pain in bilateral lower extremities. Morning labs revealed potassium 2.3, sodium 143, BUN 20, creatinine 1, white count 7.1, protein creatinine ratio 1.04. Chest x-ray showed pulmonary venous congestion with elevated right hemidiaphragm. Venous Doppler negative for DVT. Renal ultrasound unremarkable. Pending 2D echo, CT bilateral lower extremities. Patient currently on IV Lasix 40 mg b.i.d., metoprolol 12.5 mg b.i.d., [id number] mg daily, Eliquis5 mg b.i.d., IV vanco Q 24, cefepime2 g Q 24. Cardiology, Infectious Disease on board for further evaluation. REVIEW OF SYSTEMS CONSTITUTIONAL: Denies fevers, chills, or night sweats. No unintentional weight loss reported. NEUROLOGICAL: Denies headache, amaurosis fugax, motor weakness, sensory deficit, vertigo/spinning sensation, gait abnormalities, or tremors. ENT: No hearing loss, otalgia, otorrhea, rhinitis, rhinorrhea, hoarseness, or sore throat. CARDIOVASCULAR: Shortness of breadth with minimal ambulation, PND, orthopnea, progressive lower extremity edema PULMONARY: Denies any shortness of breath, cough, phlegm/sputum, hemoptysis, pleuritic chest pain. SLEEP: Denies morning headaches, daytime somnolence or napping. Denies difficulty falling asleep, staying asleep, waking from sleep. Denies knowledge of snoring. GASTROINTESTINAL: Denies any type of dysphagia to either liquids or solids. Denies nausea, vomiting, pyrosis, early satiety, abdominal pain, diarrhea, c onstipation, or changes in stool consistency or caliber. Denies coffee-ground emesis, hematemesis, hematochezia, or melanotic stools. GENITOURINARY: Denies frequency, urgency, nocturia, hematuria or incontinence (Storage/Irritative symptoms.) Low urinary stream, straining to void, urinary intermittency or hesitancy, splitting of the voiding stream, terminal dribbling. ENDOCRINOLOGIC: Denies polyuria, polydipsia, polyphagia or heat/cold intolerances. HEMATOLOGIC: Denies thrombophilia/previous clots, or coagulopathy/bleeding disorders. ONCOLOGIC: Denies personal history of malignancy. DERMATOLOGIC: Significant redness, warmth involving the bilateral lower extremities PSYCHIATRIC: Denies any suicidal or homicidal ideation. Denies hallucinations. PHYSICAL EXAM GENERAL APPEARANCE: The patient is awake, alert, and oriented, in no acute cardiopulmonary distress. NEUROLOGICAL: Cranial nerves II-XII grossly intact. Motor is 5/5 in bilateral upper and lower extremities proximal to distal. No sensory deficits. HEENT: Face is symmetric. Pupils are equal and reactive. Extraocular movements are intact. NECK: Supple. No JVD. No thyromegaly. No submental, submandibular, pre- /postauricular, occipital or supraclavicular lymphadenopathy. CHEST: Normal chest expansion. No Telemetry. LUNGS: Crackles noted of bilateral lower lung bases CARDIOVASCULAR: Regular. S1 and S2 normal. No appreciable rubs, murmurs or gallops. ABDOMEN: Soft, nontender, and nondistended. There is no rebound, voluntary guarding, or rigidity. : Deferred. No Schmitz. EXTREMITIES: 3+ pitting edema noted at bilateral lower extremities with edema extending into the thighs with significant erythema noted SKIN: As noted above Vital Signs (last 8hr) Date Time Temp Pulse Resp B/P (MAP) Pulse Ox O2 Delivery O2 Flow Rate FiO2 05/31/25 07:30 97.7 69 17 163/73 Room Air* 0 21 05/31/25 06:26 98.2 85 20 128/69 98 Room Air* 0 21 05/31/25 03:57 98.2 82 20 135/60 98 Room Air* 0 21 LABS: Laboratory: Test 05/31/25 08:49 05/31/25 05:52 05/31/25 05:39 05/30/25 16:26 Range/Units Sodium Level 141 136-145 mmol/L Potassium Level 3.8 3.5-5.1 mmol/L Chloride Level 105 101-111 mmol/L Carbon Dioxide Level 29 21-32 mmol/L Blood Urea Nitrogen 18 7-18 mg/dL Creatinine 0.8 0.5-1.0 mg/dL Glomerular Filtration Rate Calc 74 >90 mL/min Random Glucose 104 70-105 mg/dL Total Calcium 8.4 L 8.5-10.1 mg/dL White Blood Count 7.1 4.8-10.8 K/uL Red Blood Count 4.63 4.00-5.50 MIL/uL Hemoglobin 14.0 12.0-16.0 g/dL Hematocrit 43.9 36-48 % Mean Corpuscular Volume 94.8 79-99 fL Mean Corpuscular Hemoglobin 30.2 27.0-33.0 pg Mean Corpuscular Hemoglobin Concent 31.9 L 32.0-36.0 g/dL Red Cell Distribution Width 16.9 H 11.0-15.5 % Platelet Count 184 130-400 K/uL Mean Platelet Volume 10.3 7.5-10.5 fL Immature Granulocyte % (Auto) 0.1 0-1 % Neutrophils (%) (Auto) 64.3 40.0-77.0 % Lymphocytes (%) (Auto) 19.5 L 21.0-51.0 % Monocytes (%) (Auto) 12.4 3.0-13.0 % Eosinophils (%) (Auto) 3.1 0.0-8.0 % Basophils (%) (Auto) 0.6 0.0-5.0 % Neutrophils # (Auto) 4.6 1.8-7.7 K/uL Lymphocytes # (Auto) 1.4 1.0-4.8 K/uL Monocytes # (Auto) 0.9 0.1-1.0 K/uL Eosinophils # (Auto) 0.22 0.00-0.70 K/uL Basophils # (Auto) 0.04 0.00-0.20 K/uL Absolute Immature Granulocyte (auto 0.01 0-1 K/uL Nucleated Red Blood Cells 0.0 0.0-0.19 % Magnesium Level 2.00 1.80-2.40 mg/dL C-Reactive Protein, Quantitative 5.70 H 0.5-3.0 mg/L Triglycerides Level 69 30-200 mg/dL Cholesterol Level 116 # <200 mg/dL LDL Cholesterol 58 0-99 mg/dL HDL Cholesterol 41 35-85 mg/dL Test 05/30/25 16:12 05/30/25 13:29 Range/Units Urine Color LIGHT-YELLOW YELLOW Urine Appearance CLEAR CLEAR Urine pH 7.5 5.0-8.0 Urine Specific [place] 1.008 1.001-1.031 Urine Protein NEGATIVE NEGATIVE mg/dL Urine Glucose (UA) NEGATIVE NEGATIVE mg/dL Urine Ketones NEGATIVE NEGATIVE mg/dL Urine Occult Blood NEGATIVE NEGATIVE Urine Nitrate NEGATIVE NEGATIVE Urine Bilirubin NEGATIVE NEGATIVE mg/dL Urine Urobilinogen 0.2 0.2-1.0 mg/dL Urine Leukocyte Esterase NEGATIVE NEGATIVE Teresa/uL Urine RBC 2-5 H 0-1 /HPF Urine WBC 2-5 H 0-1 /HPF Urine Squamous Epithelial Cells RARE 0-2 /HPF Urine Bacteria None None Seen /HPF Urine Random Creatinine 21.67 L 30-135 mg/dL Urine Random Total Protein 22.9 H 0-11.9 mg/dL Erythrocyte Sedimentation Rate 22 0-30 MM/HR Prothrombin Time 12.0 H 9.6-11.6 SEC Prothromb Time International Ratio 1.15 0.85-1.15 Activated Partial Thromboplast Time 30.1 26.3-35.5 SEC Hemoglobin A1c 5.8 4.0-6.0 % Estimated Average Glucose (eAG) 120 70-126 mg/dL Total Bilirubin 2.6 H 0.2-1.0 mg/dL Direct Bilirubin 0.3 0.0-0.3 mg/dL Aspartate Amino Transf (AST/SGOT) 57 H 10-37 U/L Alanine Aminotransferase (ALT/SGPT) 19 12-78 U/L Alkaline Phosphatase 190 H 50-136 U/L Lactate Dehydrogenase 497 H 81-234 U/L Total Creatine Kinase 63 # 21-232 U/L Troponin I High Sensitivity 56.9 *H 4-50 ng/L B-Type Natriuretic Peptide 733 H 0-100 pg/mL Total Protein 7.6 6.0-8.3 g/dL Albumin 3.0 L 3.5-5.0 g/dL Procalcitonin < 0.05 L 0.05-0.5 ng/mL Thyroid Stimulating Hormone (TSH) 2.55 # 0.36-3.74 uIU/mL Current Medications Medications (Trade) Dose Ordered Sig/Fatuma Route PRN Reason Start Time Stop Time Status Last Admin Dose Admin Acetaminophen (TYLenol 325MG TAB) 650 mg Q6H PRN PO MILD PAIN (1-3) 05/30/25 16:00 06/29/25 15:59 Apixaban (EliquIS) 5 mg BID PO 05/30/25 21:00 06/29/25 20:59 05/31/25 09:45 5 MG Cefepime HCl (MAXipime 2 gm vial) 2 gm Q24H IVPB 05/30/25 16:30 06/09/25 16:29 05/30/25 16:40 2 GM Furosemide (LASix 40MG VIAL) 40 mg BID IV 05/30/25 21:00 06/29/25 20:59 05/31/25 09:46 40 MG Furosemide (LASix 40MG VIAL) 40 mg Q8H IV 05/30/25 14:30 05/30/25 15:56 DC 05/30/25 15:21 40 MG Labetalol HCl (TRANdate 20MG SYG) 10 mg Q6H PRN IV sor SBP> 170 05/30/25 16:00 06/29/25 15:59 Losartan Potassium (CozAAR 25MG TAB) 25 mg DAILY PO 05/31/25 09:00 06/30/25 08:59 05/31/25 09:45 25 MG Magnesium Sulfate 50 ml @ 0 mls/hr PROTOCOL IV 05/30/25 18:30 06/29/25 18:29 05/30/25 20:14 49 MLS/HR Metoprolol Tartrate (loprESSOR) 12.5 mg BID PO 05/30/25 21:00 06/29/25 20:59 05/31/25 09:46 12.5 MG Ondansetron HCl (zoFRAN 4MG INJ) 4 mg Q6H PRN IVP NAUSEA/VOMITING 05/30/25 16:00 06/29/25 15:59 Pantoprazole Sodium (PROTonix 40MG TAB) 40 mg DAILY PO 05/31/25 09:00 06/10/25 08:59 05/31/25 09:45 40 MG Pharmacy Profile Note (Pharmacy Communication) 1 each ONCE MISC 05/30/25 16:00 05/30/25 16:26 DC Piperacillin Sod/ Tazobactam Sod (Zosyn 3.375gm+NS 50ml) 3.375 gm Q8H IV 05/30/25 14:30 05/30/25 16:06 DC 05/30/25 15:21 3.375 GM Potassium Chloride 100 ml @ 100 mls/hr AD PRN IV POTASSIUM PROTOCOL 05/30/25 18:30 06/29/25 18:29 05/31/25 06:46 100 MLS/HR Potassium Chloride (K-Dur/Klor-Con 20meq) 20 meq AD PRN PO POTASSIUM PROTOCOL 05/30/25 18:30 06/29/25 18:29 05/31/25 06:46 20 MEQ Potassium Chloride (KCl 10% Elixir 20meq/15ml) 20 meq AD PRN PO POTASSIUM PROTOCOL 05/30/25 18:30 06/29/25 18:29 05/31/25 06:46 20 MEQ Vancomycin HCl 250 ml @ 125 mls/hr Q24H IV 05/31/25 16:30 06/10/25 16:29 DIAGNOSTICS / RADIOLOGY: [facility] [address] [place], [place] [address] IMAGING REPORT Signed PATIENT: ALEJANDRO ESTRELLA MR#: [id number] : 1945 SEX: F AGE: 80 LOCATION: [facility] ORDER 131 STATUS: REG ER REPORT#: [id number] SERVICE 11 REASON: cp ORDERING PHYSICIAN: SALBADOR FORDE DO PROCEDURE: CXR1VW - CHEST 1VW STUDY CR Chest, 1 view. CLINICAL HISTORY Chest pain. TECHNIQUE Single frontal radiograph of the chest. COMPARISON Chest radiograph 11/12/2024 05:30 EDT. FINDINGS LUNGS There is an elevated right hemidiaphragm with associated right basilar atelectasis. No new focal consolidation, mass, or acute pulmonary abnormality is identified. PLEURAL SPACES No pleural effusion or pneumothorax. MEDIASTINUM Cardiomegaly is present with prominent pulmonary vascular markings compatible with pulmonary vascular congestion. Overall cardiomediastinal contours are otherwise unchanged. BONES AND DEVICES No acute osseous abnormality. Partially visualized cervical spine fusion hardware is noted. IMPRESSION * Cardiomegaly with pulmonary vascular congestion and elevated right hemidiaphragm with right basilar atelectasis, all unchanged compared with 11/12/2024. * No new acute cardiopulmonary abnormality identified. /[place] DICTATED BY: JOSH ARANGO DO DATE: 05/30/251600 ELECTRONICALLY SIGNED BY: JOSH ARANGO DO DATE: 05/30/251600 [facility] [address] [place], [place] [id number] IMAGING REPORT Signed PATIENT: ALEJANDRO ESTRELLA MR#: [id number] : 1945 SEX: F AGE: 80 LOCATION: [facility] ORDER 32 STATUS: ADM IN REPORT#: [id number] SERVICE 32 REASON: swelling, r/o DVT ORDERING PHYSICIAN: SALBADOR FORDE DO PROCEDURE: VENOUS NIK - US VENOUS DOPPLER BILATERAL EXAM: US for Deep Venous Thrombosis, bilateral Lower Extremity. CLINICAL HISTORY: Leg Pain and Swelling TECHNIQUE: Real-time ultrasound scan of the veins of the bilateral lower extremity with color Doppler flow, spectral waveform analysis and compression. COMPARISON: Study dated 03/02. FINDINGS: DEEP VEINS: The common femoral, superficial femoral, and popliteal veins are echolucent and compressible. There is normal color Doppler flow throughout. The visualized calf veins appear patent. SOFT TISSUES: No popliteal fossa cyst or other abnormalities. IMPRESSION: 1. No evidence of deep venous thrombosis in the bilateral lower extremities. /[place] DICTATED BY: ANUEL PRADO MD DATE: 05/30/251653 ELECTRONICALLY SIGNED BY: ANUEL PRADO MD DATE: 05/30/251653 [place] [address] IMAGING REPORT Signed PATIENT: ALEJANDRO ESTRELLA MR#: [id number] : 1945 SEX: F AGE: 80 LOCATION: [facility] ORDER 57 STATUS: ADM IN REPORT#: [id number] SERVICE REASON: r/o any renal abnormalities, volume overload ORDERING PHYSICIAN: ARMINDA RUBIN MD PROCEDURE: RENAL - US RENAL SONOGRAM EXAM Renal ultrasound CLINICAL INDICATION R/O any renal abnormalities, volume overload (Hx). COMPARISON None. TECHNIQUE Grayscale ultrasound images of the kidneys and urinary bladder were obtained. RIGHT KIDNEY The right kidney measures approximately 10.1 x 3.8 x 5.2 cm. Renal cortical thickness and echogenicity are normal. No hydronephrosis is identified. No renal calculi or focal renal mass is identified. LEFT KIDNEY The left kidney measures approximately 10.6 x 4.4 x 4.9 cm. Renal cortical thickness and echogenicity are normal. No hydronephrosis is identified. No renal calculi or focal renal mass is identified. URINARY BLADDER The urinary bladder is partially distended. The bladder wall appears normal in thickness. No intraluminal mass or calculus is identified. IMPRESSION * Normal sonographic appearance of the kidneys without hydronephrosis, renal calculi, or focal renal mass. * Unremarkable urinary bladder. RECOMMENDATIONS * No further imaging is recommended at this time per ACR Appropriateness Criteria in the absence of persistent or worsening symptoms. * If flank pain persists or clinical suspicion for urinary tract pathology remains high, further evaluation with CT may be considered as clinically indicated. /[place] DICTATED BY: DIMITRI GUERRA MD DATE: 05/31/25107 ELECTRONICALLY SIGNED BY: DIMITRI GUERRA MD DATE: 05/31/25107 ASSESSMENT: Decompensated heart failure exacerbation with history of diastolic dysfunction, POA History of atrial fibrillation on chronic Eliquis, POA History of aortic insufficiency and aortic stenosis, POA Bilateral lower extremity cellulitis, POA Significant volume overload, POA History of hypertension, POA History of hyperlipidemia, POA History of healing wound in one two the right lower extremity, POA History of bilateral lower extremity venous stasis dermatitis with history of venous insufficiency, POA History of 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 Patient on 1.5 L fluid restriction Pending 2D echo Cardiology on board. Bilateral lower extremity cellulitis, POA Patient has redness, pain and swelling of bilateral lower extremities Venous Doppler negative for DVT Patient was started on IV vancomycin Q 24 Patient was started on IV cefepime [address] Bilateral lower extremity pending Wound care, infectious disease on board for further evaluation History of atrial fibrillation on chronic Eliquis, POA Patient has history of persistent AFib on chronic Eliquis therapy Continue Eliquis5 mg b.i.d. daily Continue metoprolol 12.5 mg b.i.d. Cardiology on board History of hypertension, POA On presentation blood pressure was 166/89 Continue metoprolol 12.5 mg b.i.d. Patient was started on [id number] mg daily by Cardiology GI prophylaxis with Protonix DVT prophylaxis with Eliquis ATTESTATION BY PHYSICIAN I have seen and examined the patient. I reviewed the documentation, medical decision making, and treatment plan as noted by the resident physician above. I agree with the findings and plan of care. DANIEL US MD, ADIL SHAH QUADRI MD May 31, 2025 10:56
--- NOTE | 2025-05-31 11:52 | NUR ---
DR US AT BEDSIDE.
--- NOTE | 2025-05-31 13:03 | NUR ---
SEVERAL FAMILY MEMBERS HAVE BEEN IN/OUT OF THE ROOM.
--- NOTE | 2025-05-31 13:33 | NUR ---
LUNCH TRAY WAS PROVIDED TO THE PT.
--- NOTE | 2025-05-31 13:41 | NUR ---
WOUND CARE TEAM JUST ARRIVED TO ASSESS THE PT.
--- NOTE | 2025-05-31 13:45 | NUR ---
PER WOUND CARE TEAM, NO WOUNDS TO TREAT. TO CANCEL WOUND MGT CONSULT. PER LINDSEY RAYA AND MARIANNE PÉREZ.
--- NOTE | 2025-05-31 14:00 | NUR ---
[facility] Consult: Patient assessed by wound healing team. Patient with no wounds or skin breakdown noted, dry skin to BLE. Assessment and recommendations provided to primary nurse. Education provided.
--- NOTE | 2025-05-31 14:18 | NUR ---
CT TRANSPORTER HERE TO TAKE PT TO CT SCAN
--- NOTE | 2025-05-31 14:33 | NUR ---
PT JUST NOW INFORMED THAT PT HAS A BED 318
--- NOTE | 2025-05-31 15:15 | NUR ---
Patient arrived to unit accompanied with family. No new monique
[2025-05-31 16:00] VITALS: BP 137/78; PULSE 74; RESP 18; TEMP 97.6
--- NOTE | 2025-05-31 16:02 | HMCSR ---
APPROVED REPORT EXAM: Two-dimensional and M-mode echocardiogram with Doppler and color Doppler. INDICATION ICD: Heart failure exacerbation 2D Dimensions RVDd 4.0 cm LVEF(%) 62.6 (>50%) LVED Vol(simp.) 70.0 mL IVSd 1.2 (0.7-1.1cm) FS(%) 34 % LVES Vol(simp.) 29.0 mL LVDd 5.1 (3.8-5.6cm) LA (2D) 5.3 (1.6-4.0cm) LVEF(%, simp.) 58 % PWd 0.9 (0.7-1.1cm) Ao Root(2D) 3.1 (2.0-3.7cm) LA ESV INDEX (BP) 49.48 mL/m2 IVSs 1.2 cm LVOT diam 1.9 (1.8-2.4cm) LVDs 3.4 (2.5-4.0cm) PWs 1.3 cm Deformation Strain Apical 4 -13.9 % Apical 2 -16.8 % Apical 3 -14.0 % Global Strain -14.9 % M-Mode Dimensions EPSS 0.9 cm LA (MM) 5.2 (1.6-4.0cm) Ao Root(MM) 3.0 (2.0-3.7cm) Aortic Valve AoV Vmax 2.5 m/s Ao Peak GR 25.1 mmHg LVOT Vmax 1.1 m/s AoV VTI 0.5 m Ao Mean GR 15.3 mmHg LVOT VTI 0.22 m ADRIANO (VMAX) 1.23 cm2 Al P1/2T 493 ms ADRIANO (VTI) 1.2 cm2 Mitral Valve MV E Vmax 149.5 cm/s DECEL Time 125 ms MV A Vmax 63.0 cm/s P 1/2 T 60 ms E/A ratio 2.4 MVA (PHT) 3.7 cm2 TDI E/E' Medial 27.3 E/E' Lateral 25.5 Medial E' Peak V 5.48 cm/s Lateral E' Peak V 5.86 cm/s Pulmonary Valve PI End Jaimie. Luis 77.9 cm/s Tricuspid Valve TR Vmax 3.3 m/s RAP (EST) 9 mmHg RVSP 51.5 mmHg TR Peak GR 42.5 mmHg Left Ventricle The left ventricle is normal size. GLS -15.0% There is normal LV segmental wall motion. Mild concentric left ventricular hypertrophy. The LVEF is > 55%. Stage III diastolic dysfunction. Right Ventricle The right ventricle is normal size. The right ventricular systolic function is normal. Atria The left atrium is moderately dilated. The interatrial septum is intact The right atrium is moderately dilated. Aortic Valve Aortic valve is trileafletm mildly thickened and opens well. Mild aortic regurgitation is present. There is mild aortic valvular stenosis. Mitral Valve Posterior annular calcification noted. The mitral valve is mildly thickened. There is mild mitral valve regurgitation noted. There is no mitral valve stenosis. Tricuspid Valve The tricuspid valve is normal in structure. There is severe tricuspid valve regurgitation noted. Pulmonic Valve Pulmonic valve is not well visualized. There is trace of pulmonic valvular regurgitation. Great Vessels The aortic root is normal in size. IVC is severely dilated and collapses <50% with inspiration. Pericardium There is no pericardial effusion. Other Information Quality : Fair Conclusion The left ventricle is normal size. Estimated LVEF is > 55% with normal LV segmental wall motion. Mild concentric left ventricular hypertrophy. Stage III diastolic dysfunction. The right ventricular systolic function is normal. The left atrium is moderately dilated. Mild aortic stenosis and regurgitation. There is severe tricuspid valve regurgitation noted. IVC is severely dilated and collapses <50% with inspiration. There is no pericardial effusion.
[2025-05-31] MEDS ORDERED: VANCOMYCIN 1.25 GM/250 ML BAG 250 ML IV SCH (16:30)
--- NOTE | 2025-05-31 17:49 | CONS ---
INFECTIOUS DISEASE CONSULTATION NOTE Date of Service: May 31, 2025 Reason for Consultation: Lower Extremity cellulitis. Requesting Physician: Dr. Lee HISTORY OF PRESENT ILLNESS: This is an 80-year-old female patient with past medical history of peripheral artery disease, May-Thurner syndrome and atrial fibrillation who presented to the emergency room for chief complaint of lower extremity redness and edema, accompanied by severe pain causing inability to walk. Reported that she went to see her PCP and was prescribed Bactrim and metronidazole but did not see any improvement and decided to come to the emergency room for evaluation. Denying experiencing fever or chills. Has remained afebrile while in the hospital. Patient has been started on vancomycin and cefepime. Currently is pending a CT of lower extremities. Will continue on current IV antibiotics and continue to follow patient. REVIEW OF SYSTEMS CONSTITUTIONAL: Denies fever, chills, or fatigue. HEAD/FACE: No signs of trauma. EENT: Denies eye pain, blurred vision, double vision, or light sensitivity. RESPIRATORY: Denies shortness of breath, cough, wheezing CARDIOVASCULAR: Denies chest pain, palpitation, syncope GASTROINTESTINAL/ABDOMINAL: Denies abdominal pain, constipation, diarrhea, nausea or vomiting GENITOURINARY: Denies dysuria or hematuria. MUSCULOSKELETAL: Bilateral lower extremity edema and severe pain INTEGUMENTARY: Bilateral lower extremities erythema. NEUROLOGICAL/PSYCH: Denies anxiety, depression, heat or cold intolerance. PAST MEDICAL HISTORY: Peripheral artery disease. May-Thurner syndrome. Atrial fibrillation, on Eliquis. PAST SURGICAL HISTORY: Hysterectomy. Bladder lift. Neck surgery. PAST SOCIAL HISTORY: Denied current use of tobacco, alcohol or any other illicit drug. FAMILY HISTORY: Mother had hypertension and heart failure. Father had hypertension and diabetes mellitus. One sister had breast cancer and another sister had brain cancer. Coded Allergies: sulfamethoxazole (Unverified Allergy, Intermediate, REDNESS, 03/22/23) RASH trimethoprim (Unverified Allergy, Intermediate, REDNESS, 03/22/23) RASH metronidazole (Verified Allergy, Unknown, 09/18/22) PHYSICAL EXAM EYES: Anicteric. Pupils equal and reactive. HENT: No oral thrush seen, moist Oral mucosa NECK: Supple, no JVD or thyromegaly. LUNGS: Good air entry. No rales, no rhonchi. CARDIOVASCULAR: S1, S2 regular. No murmur heard. ABDOMEN: Soft, non tender, bowel sounds present. CENTRAL NERVOUS SYSTEM: Awake, alert, oriented x 3. SKIN: No rashes, no swelling. LYMPHATICS: No peripheral lymphadenopathy MUSCULOSKELETAL: No joint swelling, erythema or tenderness. EXTREMITIES: No cyanosis or clubbing. Bilateral lower extremities edema and erythema. BACK: No deformity, no pressure ulcer. GENITOURINARY: No dysuria or hematuria. Vital Sign (Last 24 Hours) 05/31/25 14:56 Temp 97.9 Pulse 67 Resp 20 B/P (MAP) 140/61 Pulse Ox 97 O2 Delivery Room Air* O2 Flow Rate 0 FiO2 21 LABS: Laboratory: Test 05/31/25 08:49 05/31/25 05:52 05/31/25 05:39 05/30/25 16:26 Range/Units Sodium Level 141 136-145 mmol/L Potassium Level 3.8 3.5-5.1 mmol/L Chloride Level 105 101-111 mmol/L Carbon Dioxide Level 29 21-32 mmol/L Blood Urea Nitrogen 18 7-18 mg/dL Creatinine 0.8 0.5-1.0 mg/dL Glomerular Filtration Rate Calc 74 >90 mL/min Random Glucose 104 70-105 mg/dL Total Calcium 8.4 L 8.5-10.1 mg/dL White Blood Count 7.1 4.8-10.8 K/uL Red Blood Count 4.63 4.00-5.50 MIL/uL Hemoglobin 14.0 12.0-16.0 g/dL Hematocrit 43.9 36-48 % Mean Corpuscular Volume 94.8 79-99 fL Mean Corpuscular Hemoglobin 30.2 27.0-33.0 pg Mean Corpuscular Hemoglobin Concent 31.9 L 32.0-36.0 g/dL Red Cell Distribution Width 16.9 H 11.0-15.5 % Platelet Count 184 130-400 K/uL Mean Platelet Volume 10.3 7.5-10.5 fL Immature Granulocyte % (Auto) 0.1 0-1 % Neutrophils (%) (Auto) 64.3 40.0-77.0 % Lymphocytes (%) (Auto) 19.5 L 21.0-51.0 % Monocytes (%) (Auto) 12.4 3.0-13.0 % Eosinophils (%) (Auto) 3.1 0.0-8.0 % Basophils (%) (Auto) 0.6 0.0-5.0 % Neutrophils # (Auto) 4.6 1.8-7.7 K/uL Lymphocytes # (Auto) 1.4 1.0-4.8 K/uL Monocytes # (Auto) 0.9 0.1-1.0 K/uL Eosinophils # (Auto) 0.22 0.00-0.70 K/uL Basophils # (Auto) 0.04 0.00-0.20 K/uL Absolute Immature Granulocyte (auto 0.01 0-1 K/uL Nucleated Red Blood Cells 0.0 0.0-0.19 % Magnesium Level 2.00 1.80-2.40 mg/dL C-Reactive Protein, Quantitative 5.70 H 0.5-3.0 mg/L Triglycerides Level 69 30-200 mg/dL Cholesterol Level 116 # <200 mg/dL LDL Cholesterol 58 0-99 mg/dL HDL Cholesterol 41 35-85 mg/dL Test 05/30/25 16:12 05/30/25 13:29 Range/Units Urine Color LIGHT-YELLOW YELLOW Urine Appearance CLEAR CLEAR Urine pH 7.5 5.0-8.0 Urine Specific [place] 1.008 1.001-1.031 Urine Protein NEGATIVE NEGATIVE mg/dL Urine Glucose (UA) NEGATIVE NEGATIVE mg/dL Urine Ketones NEGATIVE NEGATIVE mg/dL Urine Occult Blood NEGATIVE NEGATIVE Urine Nitrate NEGATIVE NEGATIVE Urine Bilirubin NEGATIVE NEGATIVE mg/dL Urine Urobilinogen 0.2 0.2-1.0 mg/dL Urine Leukocyte Esterase NEGATIVE NEGATIVE Teresa/uL Urine RBC 2-5 H 0-1 /HPF Urine WBC 2-5 H 0-1 /HPF Urine Squamous Epithelial Cells RARE 0-2 /HPF Urine Bacteria None None Seen /HPF Urine Random Creatinine 21.67 L 30-135 mg/dL Urine Random Total Protein 22.9 H 0-11.9 mg/dL Erythrocyte Sedimentation Rate 22 0-30 MM/HR Prothrombin Time 12.0 H 9.6-11.6 SEC Prothromb Time International Ratio 1.15 0.85-1.15 Activated Partial Thromboplast Time 30.1 26.3-35.5 SEC Hemoglobin A1c 5.8 4.0-6.0 % Estimated Average Glucose (eAG) 120 70-126 mg/dL Total Bilirubin 2.6 H 0.2-1.0 mg/dL Direct Bilirubin 0.3 0.0-0.3 mg/dL Aspartate Amino Transf (AST/SGOT) 57 H 10-37 U/L Alanine Aminotransferase (ALT/SGPT) 19 12-78 U/L Alkaline Phosphatase 190 H 50-136 U/L Lactate Dehydrogenase 497 H 81-234 U/L Total Creatine Kinase 63 # 21-232 U/L Troponin I High Sensitivity 56.9 *H 4-50 ng/L B-Type Natriuretic Peptide 733 H 0-100 pg/mL Total Protein 7.6 6.0-8.3 g/dL Albumin 3.0 L 3.5-5.0 g/dL Procalcitonin < 0.05 L 0.05-0.5 ng/mL Thyroid Stimulating Hormone (TSH) 2.55 # 0.36-3.74 uIU/mL ASSESSMENT: Bilateral lower extremity cellulitis. Failed outpatient oral antibiotic therapy. Bilateral lower extremity edema. Peripheral artery disease. Atrial fibrillation, on on chronic anticoagulation. PLAN: Continue vancomycin per pharmacy protocol. Continue cefepime. Continue pain management. Continue anticoagulation. Instructed to maintain lower extremities elevated. Currently pending a CT scan of the lower extremities. Thank you for allowing [facility] to participate in the care of this patient. This case was reviewed and discussed with my supervising physician Dr. Avila and the above assessment and plan was formulated and agreed upon. ATTESTATION BY PHYSICIAN I have seen and examined the patient. I reviewed the documentation, medical decision making, and treatment plan as noted by the mid-level provider above. I agree with the findings and plan of care. ROXY AVILA MD, [facility] May 31, 2025 17:49
[2025-05-31] MEDS: VANCOMYCIN 1.25 GM/250 ML BAG 250 ML IV SCH (18:31)
[2025-05-31 19:13] VITALS: O2SAT 95
[2025-05-31 20:00] VITALS: BP 148/73; PULSE 86; RESP 20; TEMP 97.6; O2SAT 99
[2025-05-31 23:56] VITALS: BP 139/67; PULSE 82; RESP 16; TEMP 97.8
--- NOTE | 2025-06-01 02:27 | NUR ---
PT TELE # 25 PT WAS PLACED ON TELEMETRY #25 CURRENTLY RUNNING A FIB WITH A PULSE OF 80 PT IS ALERT AND ORIENT, NO SIGN OF DISTRESS ]
[2025-06-01 04:00] VITALS: BP 138/60; PULSE 79; RESP 20; TEMP 98
[2025-06-01 04:51] LABS: NUCLEATED RED BLOOD CELLS 0.0 % (0.0-0.19); PLATELET COUNT (AUTO) 183.0 K/uL (130-400); RED BLOOD CELL COUNT(AUTO) 4.29 MIL/uL (4.00-5.50); RED CELL DISTRIBUTION WIDTH 16.4 % (11.0-15.5); WHITE BLOOD COUNT (AUTO) 7.6 K/uL (4.8-10.8)
[2025-06-01 05:01] LABS: CREATININE 0.9 mg/dL (0.5-1.0); GLOMERULAR FILTR. RATE CALC 65.0 mL/min (>90); GLUCOSE,RANDOM 106.0 mg/dL (70-105); SODIUM SERUM 140.0 mmol/L (136-145); UREA NITROGEN, BLOOD 22.0 mg/dL (7-18)
--- NOTE | 2025-06-01 07:48 | HMCIMG ---
STUDY CT lower extremity without intravenous contrast, left HISTORY Severe venous insufficiency, left leg; severe venous insufficiency both lower limbs TECHNIQUE Non-contrast CT acquisition of the left lower extremity from iliac bifurcation through the foot with axial source images and multiplanar reformations COMPARISON No prior similar imaging available FINDINGS VASCULAR Left common iliac vein stent is in situ with preserved luminal caliber along the stented segment on this non-contrast study. No perivenous hematoma or discrete thrombus density is identified, acknowledging the limitation of non-contrast CT for venous patency assessment. Extensive calcific atherosclerotic plaque involves the left superficial femoral artery through the mid and distal segments, extending into the left popliteal artery. Additional calcific atherosclerotic calcifications are seen along the anterior tibial, posterior tibial and peroneal arteries, compatible with diffuse peripheral arterial atherosclerotic disease. Calcific atherosclerosis is also present involving the left common iliac artery without definite aneurysmal dilatation. No deep fascial gas, drainable fluid collection or soft tissue emphysema is identified in the imaged left lower extremity. SOFT TISSUES The left lower extremity demonstrates diffuse skin thickening and increased attenuation of the subcutaneous fat with a cobblestone appearance, in keeping with cellulitis in the appropriate clinical context. No well-formed low-attenuation fluid collection is seen to suggest a drainable abscess on this non-contrast study. No CT features of necrotizing fasciitis such as fascial gas or deep intermuscular fluid tracking are evident. OSSEOUS STRUCTURES AND JOINTS Visualized osseous structures of the pelvis, femur, tibia and fibula demonstrate preserved cortical outlines without acute fracture or aggressive lytic or sclerotic lesion. Joint spaces at the hip, knee and ankle are maintained for age without CT evidence of acute septic arthritis or osteomyelitis. OTHER No soft tissue foreign body is identified. No acute intramuscular hematoma is demonstrated. IMPRESSION * Left lower extremity cellulitis with diffuse skin thickening and cobblestoning of the subcutaneous fat; no CT evidence of a drainable abscess or necrotizing fasciitis. * Left common iliac vein stent in situ without CT evidence of local complication on this non-contrast study; duplex ultrasound can better evaluate venous patency if clinically indicated. * Advanced calcific atherosclerosis involving the left superficial femoral, popliteal, anterior tibial, posterior tibial and peroneal arteries, as well as the left common iliac artery, compatible with significant peripheral arterial atherosclerotic disease. * No acute osseous abnormality identified. /Raquel
--- NOTE | 2025-06-01 07:48 | HMCIMG ---
STUDY CT lower extremity without intravenous contrast HISTORY Severe venous insufficiency, left leg; severe venous insufficiency both lower limbs TECHNIQUE Non-contrast CT acquisition of the bilateral lower extremities from iliac bifurcation through the feet with axial source images and multiplanar reformations COMPARISON No prior similar imaging available FINDINGS VASCULAR Right common iliac vein stent is in situ with preserved luminal caliber along the stented segment on this non-contrast study. No perivenous hematoma or discrete thrombus density is identified, although CT without contrast is limited for venous patency assessment. Right common femoral vein appears within normal limits without focal expansion or perivenous inflammatory change. Extensive calcific atherosclerotic plaque involves the right superficial femoral artery along its proximal, mid and distal segments and extends into the right popliteal artery, without gross aneurysmal dilatation on non-contrast images. Additional calcific atherosclerosis is present involving the bilateral common iliac arteries, without definite aneurysm. No definite deep fascial gas, drainable fluid collection or soft tissue emphysema is seen in the imaged right lower extremity. SOFT TISSUES The right lower extremity demonstrates diffuse skin thickening and increased attenuation of the subcutaneous fat with a cobblestone appearance consistent with cellulitis in the appropriate clinical setting. No well-formed rim-enhancing or low-attenuation collection is identified to suggest a drainable abscess on this non-contrast CT. No CT evidence of necrotizing fasciitis such as fascial gas or deep intermuscular fluid tracking is seen. OSSEOUS STRUCTURES AND JOINTS Visualized bony structures of the pelvis, femora, tibiae and fibulae demonstrate preserved cortical integrity without acute fracture or destructive bone lesion. Joint spaces at the hips, knees and ankles are maintained for age without convincing CT features of acute septic arthritis or osteomyelitis. OTHER No soft tissue foreign body is identified. No acute intramuscular hematoma is demonstrated. IMPRESSION * Right lower extremity cellulitis with diffuse skin thickening and cobblestoning of the subcutaneous fat; no CT evidence of drainable abscess or necrotizing fasciitis. * Right common iliac vein stent in situ, without CT evidence of local complication on this non-contrast exam; duplex ultrasound can better assess venous patency if clinically indicated. * Advanced calcific atherosclerosis involving the right superficial femoral and popliteal arteries and the bilateral common iliac arteries, compatible with significant peripheral arterial atherosclerotic disease. * No acute osseous abnormality identified. /Raquel
[2025-06-01 08:00] VITALS: BP 151/69; PULSE 65; RESP 19; TEMP 97.5
[2025-06-01 09:24] LABS: CREATININE 1.0 mg/dL (0.5-1.0); GLOMERULAR FILTR. RATE CALC 57.0 mL/min (>90); GLUCOSE,RANDOM 122.0 mg/dL (70-105); SODIUM SERUM 139.0 mmol/L (136-145); UREA NITROGEN, BLOOD 25.0 mg/dL (7-18)
--- NOTE | 2025-06-01 09:44 | PN ---
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 Symptoms have been ongoing for the past one week. , patient has noticed that her legs have been significantly swollen extending into the thighs. She has been having PND, orthopnea and shortness of breadth minimal activity. She is unable to ambulate due to significant lower extremity swelling. She does have history of chronic lower extremity edema which is usually minimal and she has been maintained on outpatient treatment with Lasix 20 mg daily. Patient denies any falls. She denies any focal weakness of upper or lower extremities. She has been maintained on anticoagulation with Eliquis chronically for management of atrial fibrillation. She also reports taking metoprolol tartrate 12.5 mg b.i.d. She does report having some chronic wound involving the right lower extremity which is healing well. On presentation to the hospital, patient was noted to be afebrile with T-max of 98.6 F, heart rate of 75, blood pressure 166/89. Labs on presentation showed WBC count of 7500, hemoglobin 14.6, platelet count of 204 ,000. BMP showed sodium of 139, potassium 4.7, chloride of 106, creatinine of 0.9, BNP of 733. Patient will be admitted for further management of decompensated heart failure exacerbation with significant volume overload. Patient with bilateral lower extremity venous stasis dermatitis with venous insufficiency with findings of lower extremity cellulitis. Patient will receive IV diuretics, we will be started on broad-spe ctrum antibiotics. Consultation with Cardiology Infectious Disease will be requested. We will see how patient progresses in the next 48-72 hours. 05/31/2025: Patient was seen and evaluated this morning, no family at bedside. He is awake, alert, oriented x3, saturating 98% with room air. Patient said that her bilateral lower extremity swelling has been increasing significantly over past1 week, patient has red, dry, severe pain in bilateral lower extremities. Morning labs revealed potassium 2.3, sodium 143, BUN 20, creatinine 1, white count 7.1, protein creatinine ratio 1.04. Chest x-ray showed pulmonary venous congestion with elevated right hemidiaphragm. Venous Doppler negative for DVT. Renal ultrasound unremarkable. Pending 2D echo, CT bilateral lower extremities. Patient currently on IV Lasix 40 mg b.i.d., metoprolol 12.5 mg b.i.d., [id number] mg daily, Eliquis5 mg b.i.d., IV vanco Q 24, cefepime2 g Q 24. Cardiology, Infectious Disease on board for further evaluation. 06/01/2025: Patient was seen and evaluated this morning, no family at bedside. She is awake, alert, oriented x3, saturating 98% with room air. Patient says that she is feeling lot better, her lower extremity swelling has been improved, complains of dry and itchy lower extremities. Morning labs revealed sodium 140, potassium 3.1, BNP 554, negative fluid balance of 1210. 2D echocardiogram showed LVEF> 55%, stage III diastolic dysfunction. Mild aortic stenosis and regurgitation, severe tricuspid valve regurgitation. CT bilateral lower extremity showed cellulitis with diffuse skin thickening and cobblestoning of subcutaneous fat; no CT evidence of drainable abscess or necrotizing fascitis. Advanced calcific atherosclerosis in bilateral lower extremity arteries. Continue IV Lasix 40 mg b.i.d., metoprolol 12.5 mg b.i.d., [id number] mg daily, Eliquis5 mg b.i.d., IV vanco Q 24, cefepime2 g Q 24 and we will replace potassium per protocol. Cardiology, Infectious Disease on board. REVIEW OF SYSTEMS CONSTITUTIONAL: Denies fevers, chills, or night sweats. No unintentional weight loss reported. NEUROLOGICAL: Denies headache, amaurosis fugax, motor weakness, sensory deficit, vertigo/spinning sensation, gait abnormalities, or tremors. ENT: No hearing loss, otalgia, otorrhea, rhinitis, rhinorrhea, hoarseness, or sore throat. CARDIOVASCULAR: Shortness of breadth with minimal ambulation, PND, orthopnea, progressive lower extremity edema PULMONARY: Denies any shortness of breath, cough, phlegm/sputum, hemoptysis, pleuritic chest pain. SLEEP: Denies morning headaches, daytime somnolence or napping. Denies difficulty falling asleep, staying asleep, waking from sleep. Denies knowledge of snoring. GASTROINTESTINAL: Denies any type of dysphagia to either liquids or solids. Denies nausea, vomiting, pyrosis, early satiety, abdominal pain, diarrhea, constipation, or changes in stool consistency or caliber. Denies coffee-ground emesis, hematemesis, hematochezia, or melanotic stools. GENITOURINARY: Denies frequency, urgency, nocturia, hematuria or incontinence (Storage/Irritative symptoms.) Low urinary stream, straining to void, urinary intermittency or hesitancy, splitting of the voiding stream, terminal dribbling. ENDOCRINOLOGIC: Denies polyuria, polydipsia, polyphagia or heat/cold intolerances. HEMATOLOGIC: Denies thrombophilia/previous clots, or coagulopathy/bleeding disorders. ONCOLOGIC: Denies personal history of malignancy. DERMATOLOGIC: Significant redness, warmth involving the bilateral lower extre mities PSYCHIATRIC: Denies any suicidal or homicidal ideation. Denies hallucinations. PHYSICAL EXAM GENERAL APPEARANCE: The patient is awake, alert, and oriented, in no acute cardiopulmonary distress. NEUROLOGICAL: Cranial nerves II-XII grossly intact. Motor is 5/5 in bilateral upper and lower extremities proximal to distal. No sensory deficits. HEENT: Face is symmetric. Pupils are equal and reactive. Extraocular movements are intact. NECK: Supple. No JVD. No thyromegaly. No submental, submandibular, pre- /postauricular, occipital or supraclavicular lymphadenopathy. CHEST: Normal chest expansion. No Telemetry. LUNGS: Crackles noted of bilateral lower lung bases CARDIOVASCULAR: Regular. S1 and S2 normal. No appreciable rubs, murmurs or gallops. ABDOMEN: Soft, nontender, and nondistended. There is no rebound, voluntary guarding, or rigidity. : Deferred. No Schmitz. EXTREMITIES: 3+ pitting edema noted at bilateral lower extremities with edema extending into the thighs with significant erythema noted SKIN: As noted above Vital Signs (last 8hr) Date Time Temp Pulse Resp B/P (MAP) Pulse Ox O2 Delivery O2 Flow Rate FiO2 06/01/25 08:00 97.5 65 19 151/69 97 Room Air 06/01/25 04:00 98.1 79 20 138/60 98 Room Air LABS: Laboratory: Test 06/01/25 09:08 06/01/25 04:35 05/31/25 05:52 05/31/25 05:39 Range/Units Sodium Level 139 136-145 mmol/L Potassium Level 3.4 L 3.5-5.1 mmol/L Chloride Level 105 101-111 mmol/L Carbon Dioxide Level 28 21-32 mmol/L Blood Urea Nitrogen 25 H 7-18 mg/dL Creatinine 1.0 0.5-1.0 mg/dL Glomerular Filtration Rate Calc 57 >90 mL/min Random Glucose 122 H 70-105 mg/dL Total Calcium 8.3 L 8.5-10.1 mg/dL White Blood Count 7.6 4.8-10.8 K/uL Red Blood Count 4.29 4.00-5.50 MIL/uL Hemoglobin 13.1 12.0-16.0 g/dL Hematocrit 39.3 36-48 % Mean Corpuscular Volume 91.6 79-99 fL Mean Corpuscular Hemoglobin 30.5 27.0-33.0 pg Mean Corpuscular Hemoglobin Concent 33.3 32.0-36.0 g/dL Red Cell Distribution Width 16.4 H 11.0-15.5 % Platelet Count 183 130-400 K/uL Mean Platelet Volume 10.4 7.5-10.5 fL Nucleated Red Blood Cells 0.0 0.0-0.19 % B-Type Natriuretic Peptide 554 H 0-100 pg/mL Immature Granulocyte % (Auto) 0.1 0-1 % Neutrophils (%) (Auto) 64.3 40.0-77.0 % Lymphocytes (%) (Auto) 19.5 L 21.0-51.0 % Monocytes (%) (Auto) 12.4 3.0-13.0 % Eosinophils (%) (Auto) 3.1 0.0-8.0 % Basophils (%) (Auto) 0.6 0.0-5.0 % Neutrophils # (Auto) 4.6 1.8-7.7 K/uL Lymphocytes # (Auto) 1.4 1.0-4.8 K/uL Monocytes # (Auto) 0.9 0.1-1.0 K/uL Eosinophils # (Auto) 0.22 0.00-0.70 K/uL Basophils # (Auto) 0.04 0.00-0.20 K/uL Absolute Immature Granulocyte (auto 0.01 0-1 K/uL Magnesium Level 2.00 1.80-2.40 mg/dL Test 05/30/25 16:26 05/30/25 16:12 05/30/25 13:29 Range/Units C-Reactive Protein, Quantitative 5.70 H 0.5-3.0 mg/L Triglycerides Level 69 30-200 mg/dL Cholesterol Level 116 # <200 mg/dL LDL Cholesterol 58 0-99 mg/dL HDL Cholesterol 41 35-85 mg/dL Urine Color LIGHT-YELLOW YELLOW Urine Appearance CLEAR CLEAR Urine pH 7.5 5.0-8.0 Urine Specific [place] 1.008 1.001-1.031 Urine Protein NEGATIVE NEGATIVE mg/dL Urine Glucose (UA) NEGATIVE NEGATIVE mg/dL Urine Ketones NEGATIVE NEGATIVE mg/dL Urine Occult Blood NEGATIVE NEGATIVE Urine Nitrate NEGATIVE NEGATIVE Urine Bilirubin NEGATIVE NEGATIVE mg/dL Urine Urobilinogen 0.2 0.2-1.0 mg/dL Urine Leukocyte Esterase NEGATIVE NEGATIVE Teresa/uL Urine RBC 2-5 H 0-1 /HPF Urine WBC 2-5 H 0-1 /HPF Urine Squamous Epithelial Cells RARE 0-2 /HPF Urine Bacteria None None Seen /HPF Urine Random Creatinine 21.67 L 30-135 mg/dL Urine Random Total Protein 22.9 H 0-11.9 mg/dL Erythrocyte Sedimentation Rate 22 0-30 MM/HR Prothrombin Time 12.0 H 9.6-11.6 SEC Prothromb Time International Ratio 1.15 0.85-1.15 Activated Partial Thromboplast Time 30.1 26.3-35.5 SEC Hemoglobin A1c 5.8 4.0-6.0 % Estimated Average Glucose (eAG) 120 70-126 mg/dL Total Bilirubin 2.6 H 0.2-1.0 mg/dL Direct Bilirubin 0.3 0.0-0.3 mg/dL Aspartate Amino Transf (AST/SGOT) 57 H 10-37 U/L Alanine Aminotransferase (ALT/SGPT) 19 12-78 U/L Alkaline Phosphatase 190 H 50-136 U/L Lactate Dehydrogenase 497 H 81-234 U/L Total Creatine Kinase 63 # 21-232 U/L Troponin I High Sensitivity 56.9 *H 4-50 ng/L Total Protein 7.6 6.0-8.3 g/dL Albumin 3.0 L 3.5-5.0 g/dL Procalcitonin < 0.05 L 0.05-0.5 ng/mL Thyroid Stimulating Hormone (TSH) 2.55 # 0.36-3.74 uIU/mL Current Medications Medications (Trade) Dose Ordered Sig/Fatuma Route PRN Reason Start Time Stop Time Status Last Admin Dose Admin Acetaminophen (TYLenol 325MG TAB) 650 mg Q6H PRN PO MILD PAIN (1-3) 05/30/25 16:00 06/29/25 15:59 Apixaban (EliquIS) 5 mg BID PO 05/30/25 21:00 06/29/25 20:59 05/31/25 20:49 5 MG Cefepime HCl (MAXipime 2 gm vial) 2 gm Q24H IVPB 05/30/25 16:30 06/09/25 16:29 05/31/25 17:18 2 GM Furosemide (LASix 40MG VIAL) 40 mg BID IV 05/30/25 21:00 06/29/25 20:59 05/31/25 20:44 40 MG Furosemide (LASix 40MG VIAL) 40 mg Q8H IV 05/30/25 14:30 05/30/25 15:56 DC 05/30/25 15:21 40 MG Labetalol HCl (TRANdate 20MG SYG) 10 mg Q6H PRN IV sor SBP> 170 05/30/25 16:00 06/29/25 15:59 Losartan Potassium (CozAAR 25MG TAB) 25 mg DAILY PO 05/31/25 09:00 06/30/25 08:59 05/31/25 09:45 25 MG Magnesium Sulfate 50 ml @ 0 mls/hr PROTOCOL IV 05/30/25 18:30 06/29/25 18:29 05/30/25 20:14 49 MLS/HR Metoprolol Tartrate (loprESSOR) 12.5 mg BID PO 05/30/25 21:00 06/29/25 20:59 05/31/25 20:44 12.5 MG Ondansetron HCl (zoFRAN 4MG INJ) 4 mg Q6H PRN IVP NAUSEA/VOMITING 05/30/25 16:00 06/29/25 15:59 Pantoprazole Sodium (PROTonix 40MG TAB) 40 mg DAILY PO 05/31/25 09:00 06/10/25 08:59 05/31/25 09:45 40 MG Pharmacy Profile Note (Pharmacy Communication) 1 each ONCE MISC 05/30/25 16:00 05/30/25 16:26 DC Piperacillin Sod/ Tazobactam Sod (Zosyn 3.375gm+NS 50ml) 3.375 gm Q8H IV 05/30/25 14:30 05/30/25 16:06 DC 05/30/25 15:21 3.375 GM Potassium Chloride 100 ml @ 100 mls/hr AD PRN IV POTASSIUM PROTOCOL 05/30/25 18:30 06/29/25 18:29 05/31/25 06:46 100 MLS/HR Potassium Chloride (K-Dur/Klor-Con 20meq) 20 meq AD PRN PO POTASSIUM PROTOCOL 05/30/25 18:30 06/29/25 18:29 06/01/25 05:37 20 MEQ Potassium Chloride (KCl 10% Elixir 20meq/15ml) 20 meq AD PRN PO POTASSIUM PROTOCOL 05/30/25 18:30 06/29/25 18:29 05/31/25 06:46 20 MEQ Vancomycin HCl 250 ml @ 125 mls/hr Q24H IV 05/31/25 16:30 05/31/25 17:35 DC Vancomycin HCl 250 ml @ 125 mls/hr Q24H IV 05/31/25 18:00 06/10/25 17:59 05/31/25 18:31 125 MLS/HR DIAGNOSTICS / RADIOLOGY: [ ] [place] [id number] IMAGING REPORT Signed PATIENT: ALEJANDRO ESTRELLA MR#: [id number] : 1945 SEX: F AGE: 80 LOCATION: [place] ORDER [id number] STATUS: ADM IN REPORT#: [id number] SERVICE 3174 REASON: heart failure exacerbation, heart clinic to read ORDERING PHYSICIAN: ARMINDA RUBIN MD PROCEDURE: ECHO CMP - ECHO 2-D COMPLETE APPROVED REPORT EXAM: Two-dimensional and M-mode echocardiogram with Doppler and color Doppler. INDICATION ICD: Heart failure exacerbation 2D Dimensions RVDd 4.0 cm LVEF(%) 62.6 (>50%) LVED Vol(simp.) 70.0 mL IVSd 1.2 (0.7-1.1cm) FS(%) 34 % LVES Vol(simp.) 29.0 mL LVDd 5.1 (3.8-5.6cm) LA (2D) 5.3 (1.6-4.0cm) LVEF(%, simp.) 58 % PWd 0.9 (0.7-1.1cm) Ao Root(2D) 3.1 (2.0-3.7cm) LA ESV INDEX (BP) 49.48 mL/m2 IVSs 1.2 cm LVOT diam 1.9 (1.8-2.4cm) LVDs 3.4 (2.5-4.0cm) PWs 1.3 cm Deformation Strain Apical 4 -13.9 % Apical 2 -16.8 % Apical 3 -14.0 % Global Strain -14.9 % M-Mode Dimensions EPSS 0.9 cm LA (MM) 5.2 (1.6-4.0cm) Ao Root(MM) 3.0 (2.0-3.7cm) Aortic Valve AoV Vmax 2.5 m/s Ao Peak GR 25.1 mmHg LVOT Vmax 1.1 m/s AoV VTI 0.5 m Ao Mean GR 15.3 mmHg LVOT VTI 0.22 m ADRIANO (VMAX) 1.23 cm2 Al P1/2T 493 ms ADRIANO (VTI) 1.2 cm2 Mitral Valve MV E Vmax 149.5 cm/s DECEL Time 125 ms MV A Vmax 63.0 cm/s P 1/2 T 60 ms E/A ratio 2.4 MVA (PHT) 3.7 cm2 TDI E/E' Medial 27.3 E/E' Lateral 25.5 Medial E' Peak V 5.48 cm/s Lateral E' Peak V 5.86 cm/s Pulmonary Valve PI End Jaimie. Luis 77.9 cm/s Tricuspid Valve TR Vmax 3.3 m/s RAP (EST) 9 mmHg RVSP 51.5 mmHg TR Peak GR 42.5 mmHg Left Ventricle The left ventricle is normal size. GLS -15.0% There is normal LV segmental wall motion. Mild concentric left ventricular hypertrophy. The LVEF is > 55%. Stage III diastolic dysfunction. Right Ventricle The right ventricle is normal size. The right ventricular systolic function is normal. Atria The left atrium is moderately dilated. The interatrial septum is intact The right atrium is moderately dilated. Aortic Valve Aortic valve is trileafletm mildly thickened and opens well. Mild aortic regurgitation is present. There is mild aortic valvular stenosis. Mitral Valve Posterior annular calcification noted. The mitral valve is mildly thickened. There is mild mitral valve regurgitation noted. There is no mitral valve stenosis. Tricuspid Valve The tricuspid valve is normal in structure. There is severe tricuspid valve regurgitation noted. Pulmonic Valve Pulmonic valve is not well visualized. There is trace of pulmonic valvular regurgitation. Great Vessels The aortic root is normal in size. IVC is severely dilated and collapses <50% with inspiration. Pericardium There is no pericardial effusion. Other Information Quality : Fair Conclusion The left ventricle is normal size. Estimated LVEF is > 55% with normal LV segmental wall motion. Mild concentric left ventricular hypertrophy. Stage III diastolic dysfunction. The right ventricular systolic function is normal. The left atrium is moderately dilated. Mild aortic stenosis and regurgitation. There is severe tricuspid valve regurgitation noted. IVC is severely dilated and collapses <50% with inspiration. There is no pericardial effusion. DICTATED BY: ANUEL KAY MD DATE: 05/31/2557 ELECTRONICALLY SIGNED BY: ANUEL KAY MD DATE: 05/31/25 [address] [place] [address] IMAGING REPORT Signed PATIENT: ALEJANDRO ESTRELLA MR#: [id number] : 1945 SEX: F AGE: 80 LOCATION: 3C ORDER [id number] STATUS: ADM IN REPORT#: [id number] SERVICE 1349 REASON: PERIPHERAL VASCULAR DISEASE, RT LEG ORDERING PHYSICIAN: DANIEL US MD PROCEDURE: LOW EXT WO - CT LOW EXT W/O CONTRAST STUDY CT lower extremity without intravenous contrast HISTORY Severe venous insufficiency, left leg; severe venous insufficiency both lower limbs TECHNIQUE Non-contrast CT acquisition of the bilateral lower extremities from iliac bifurcation through the feet with axial source images and multiplanar reformations COMPARISON No prior similar imaging available FINDINGS VASCULAR Right common iliac vein stent is in situ with preserved luminal caliber along the stented segment on this non-contrast study. No perivenous hematoma or discrete thrombus density is identified, although CT without contrast is limited for venous patency assessment. Right common femoral vein appears within normal limits without focal expansion or perivenous inflammatory change. Extensive calcific atherosclerotic plaque involves the right superficial femoral artery along its proximal, mid and distal segments and extends into the right popliteal artery, without gross aneurysmal dilatation on non-contrast images. Additional calcific atherosclerosis is present involving the bilateral common iliac arteries, without definite aneurysm. No definite deep fascial gas, drainable fluid collection or soft tissue emphysema is seen in the imaged right lower extremity. SOFT TISSUES The right lower extremity demonstrates diffuse skin thickening and increased attenuation of the subcutaneous fat with a cobblestone appearance consistent with cellulitis in the appropriate clinical setting. No well-formed rim-enhancing or low-attenuation collection is identified to suggest a drainable abscess on this non-contrast CT. No CT evidence of necrotizing fasciitis such as fascial gas or deep intermuscular fluid tracking is seen. OSSEOUS STRUCTURES AND JOINTS Visualized bony structures of the pelvis, femora, tibiae and fibulae demonstrate preserved cortical integrity without acute fracture or destructive bone lesion. Joint spaces at the hips, knees and ankles are maintained for age without convincing CT features of acute septic arthritis or osteomyelitis. OTHER No soft tissue foreign body is identified. No acute intramuscular hematoma is demonstrated. IMPRESSION * Right lower extremity cellulitis with diffuse skin thickening and cobblestoning of the subcutaneous fat; no CT evidence of drainable abscess or necrotizing fasciitis. * Right common iliac vein stent in situ, without CT evidence of local complication on this non-contrast exam; duplex ultrasound can better assess venous patency if clinically indicated. * Advanced calcific atherosclerosis involving the right superficial femoral and popliteal arteries and the bilateral common iliac arteries, compatible with significant peripheral arterial atherosclerotic disease. * No acute osseous abnormality identified. /[place] DICTATED BY: MIGUEL SHETH MD DATE: 06/01/25846 ELECTRONICALLY SIGNED BY: MIGUEL SHETH MD DATE: 12/24/[address] [place] [address] [address] IMAGING REPORT Signed PATIENT: ALEJANDRO ESTRELLA MR#: [id number] : 1945 SEX: F AGE: 80 LOCATION: 3CH ORDER [id number] STATUS: ADM IN REPORT#: [id number] SERVICE 1400 REASON: Severe venous insufficiency, LT LEG ORDERING PHYSICIAN: RICKY DOMINGUEZ MD PROCEDURE: LOW EXT WO - CT LOW EXT W/O CONTRAST STUDY CT lower extremity without intravenous contrast, left HISTORY Severe venous insufficiency, left leg; severe venous insufficiency both lower limbs TECHNIQUE Non-contrast CT acquisition of the left lower extremity from iliac bifurcation through the foot with axial source images and multiplanar reformations COMPARISON No prior similar imaging available FINDINGS VASCULAR Left common iliac vein stent is in situ with preserved luminal caliber along the stented segment on this non-contrast study. No perivenous hematoma or discrete thrombus density is identified, acknowledging the limitation of non-contrast CT for venous patency assessment. Extensive calcific atherosclerotic plaque involves the left superficial femoral artery through the mid and distal segments, extending into the left popliteal artery. Additional calcific atherosclerotic calcifications are seen along the anterior tibial, posterior tibial and peroneal arteries, compatible with diffuse peripheral arterial atherosclerotic disease. Calcific atherosclerosis is also present involving the left common iliac artery without definite aneurysmal dilatation. No deep fascial gas, drainable fluid collection or soft tissue emphysema is identified in the imaged left lower extremity. SOFT TISSUES The left lower extremity demonstrates diffuse skin thickening and increased attenuation of the subcutaneous fat with a cobblestone appearance, in keeping with cellulitis in the appropriate clinical context. No well-formed low-attenuation fluid collection is seen to suggest a drainable abscess on this non-contrast study. No CT features of necrotizing fasciitis such as fascial gas or deep intermuscular fluid tracking are evident. OSSEOUS STRUCTURES AND JOINTS Visualized osseous structures of the pelvis, femur, tibia and fibula demonstrate preserved cortical outlines without acute fracture or aggressive lytic or sclerotic lesion. Joint spaces at the hip, knee and ankle are maintained for age without CT evidence of acute septic arthritis or osteomyelitis. OTHER No soft tissue foreign body is identified. No acute intramuscular hematoma is demonstrated. IMPRESSION * Left lower extremity cellulitis with diffuse skin thickening and cobblestoning of the subcutaneous fat; no CT evidence of a drainable abscess or necrotizing fasciitis. * Left common iliac vein stent in situ without CT evidence of local complication on this non-contrast study; duplex ultrasound can better evaluate venous patency if clinically indicated. * Advanced calcific atherosclerosis involving the left superficial femoral, popliteal, anterior tibial, posterior tibial and peroneal arteries, as well as the left common iliac artery, compatible with significant peripheral arterial atherosclerotic disease. * No acute osseous abnormality identified. /[place] DICTATED BY: MIGUEL SHETH MD DATE: 06/01/25847 ELECTRONICALLY SIGNED BY: MIGUEL SHETH MD DATE: 06/01/25847 ASSESSMENT: Decompensated heart failure exacerbation with history of diastolic dysfunction, POA History of atrial fibrillation on chronic Eliquis, POA History of aortic insufficiency and aortic stenosis, POA Bilateral lower extremity cellulitis, POA Significant volume overload, POA History of hypertension, POA History of hyperlipidemia, POA History of healing wound in one two the right lower extremity, POA History of bilateral lower extremity venous stasis dermatitis with history of venous insufficiency, POA History of 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 Today BNP 544, negative fluid balance 1210 Patient on 1.5 L fluid restriction Cardiology on board. Bilateral lower extremity cellulitis, POA Patient has redness, pain and swelling of bilateral lower extremities Venous Doppler negative for DVT Continue IV vancomycin Q 24 Continue IV cefepime [address] bilateral lower extremity showed cellulitis with diffuse skin thickening and cobblestoning of subcutaneous fat; no CT evidence of drainable abscess or necrotizing fascitis. Advanced calcific atherosclerosis in bilateral lower extremity arteries. Wound care, infectious disease on board for further evaluation History of atrial fibrillation on chronic Eliquis, POA Patient has history of persistent AFib on chronic Eliquis therapy Continue Eliquis5 mg b.i.d. daily Continue metoprolol 12.5 mg b.i.d. Cardiology on board History of hypertension, POA On presentation blood pressure was 166/89 Continue metoprolol 12.5 mg b.i.d. Patient was started on [id number] mg daily by Cardiology GI prophylaxis with Protonix DVT prophylaxis with Eliquis ATTESTATION BY PHYSICIAN I have seen and examined the patient. I reviewed the documentation, medical decision making, and treatment plan as noted by the resident physician above. I agree with the findings and plan of care. DANIEL US MD, ADIL SHAH QUADRI MD Jun 01, 2025 09:44
[2025-06-01 12:00] VITALS: BP 155/68; PULSE 71; RESP 19; TEMP 98.1
--- NOTE | 2025-06-01 14:37 | PN ---
PROGRESS NOTE PROBLEM LIST: 1. Bilateral lower extremity cellulitis 2. Chronic venous insufficiency and noncompliance with diuretic use 3. 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 Mild aortic stenosis moderate aortic insufficiency on prior echo 5. Hypertension 6. Persistent atrial fibrillation 7. Chronic anticoagulation INTERIM HISTORY OF PRESENT ILLNESS: 80 year old female presented to ER due to one week of lower extremity edema extending to thigh level. She had been experiencing shortness of breath and orthopnea like symptoms. Cardiology consult was requested for evaluation of possible CHF. 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 BNP on arrival was 733 and troponin 56.9 and normal renal function. Chest x-ray demonstrated cardiomegaly with pulmonary vascular congestion, venous Doppler with no evidence of DVT. She denies chest pain, no palpitations or syncope. Admits to not taking furosemide home dose regularly. Patient currently receiving IV diuretics with about 1600 cc of urine output via purewick. She states that her symptoms have improved. She denies SOB but continues with mild orthopnea, although improved. She continues with bilateral leg pain, particularly when walking. She notes that her leg edema has improved. Labs were drawn this morning, results pending, including a BNP. She did have hypokalemia yesterday that is currently being replaced. No active wounds at this time. REVIEW OF SYSTEMS: No fever, headache, chest pain, abdominal pain, nausea, vomiting, or diarrhea. Admits to bilateral leg pain and edema. No SOB. Admits to orthopnea. VITAL SIGNS Vital Signs Date Time Temp Pulse Resp B/P (MAP) Pulse Ox O2 Delivery O2 Flow Rate FiO2 06/01/25 08:00 97.5 65 19 151/69 97 Room Air 05/31/25 20:00 0 21 Laboratory Tests 06/01/25 04:35 06/01/25 09:08 LABS/MEDS Laboratory Tests Test 06/01/25 04:35 06/01/25 09:08 White Blood Count 7.6 K/uL (4.8-10.8) Red Blood Count 4.29 MIL/uL (4.00-5.50) Hemoglobin 13.1 g/dL (12.0-16.0) Hematocrit 39.3 % (36-48) Mean Corpuscular Volume 91.6 fL (79-99) Mean Corpuscular Hemoglobin 30.5 pg (27.0-33.0) Mean Corpuscular Hemoglobin Concent 33.3 g/dL (32.0-36.0) Red Cell Distribution Width 16.4 % (11.0-15.5) H Platelet Count 183 K/uL (130-400) Mean Platelet Volume 10.4 fL (7.5-10.5) Nucleated Red Blood Cells 0.0 % (0.0-0.19) Sodium Level 140 mmol/L (136-145) 139 mmol/L (136-145) Potassium Level 3.1 mmol/L (3.5-5.1) L 3.4 mmol/L (3.5-5.1) L Chloride Level 104 mmol/L (101-111) 105 mmol/L (101-111) Carbon Dioxide Level 28 mmol/L (21-32) 28 mmol/L (21-32) Blood Urea Nitrogen 22 mg/dL (7-18) H 25 mg/dL (7-18) H Creatinine 0.9 mg/dL (0.5-1.0) 1.0 mg/dL (0.5-1.0) Glomerular Filtration Rate Calc 65 mL/min (>90) 57 mL/min (>90) Random Glucose 106 mg/dL (70-105) H 122 mg/dL (70-105) H Total Calcium 8.1 mg/dL (8.5-10.1) L 8.3 mg/dL (8.5-10.1) L B-Type Natriuretic Peptide 554 pg/mL (0-100) H Current Medications Vancomycin HCl 1.25 gm ONCE ONCE IV; Start 05/30/25 at 14:30; Stop 05/30/25 at 14:31; Status Cancel Piperacillin Sod/ Tazobactam Sod 3.375 gm Q8H IV Last administered on 05/30/25at 15:21; Start 05/30/25 at 14:30; Stop 05/30/25 at 16:06; Status DC Furosemide 40 mg Q8H IV Last administered on 05/30/25at 15:21; Start 05/30/25 at 14:30; Stop 05/30/25 at 15:56; Status DC Vancomycin HCl 250 ml @ 125 mls/hr ONCE ONCE IV; Start 05/30/25 at 15:30; Stop 05/30/25 at 17:29; Status DC Furosemide 40 mg BID IV Last administered on 06/01/25at 10:11; Start 05/30/25 at 21:00; Stop 06/29/25 at 20:59 Acetaminophen 650 mg Q6H PRN PO; Start 05/30/25 at 16:00; Stop 06/29/25 at 15:59 Ondansetron HCl 4 mg Q6H PRN IVP; Start 05/30/25 at 16:00; Stop 06/29/25 at 15:59 Labetalol HCl 10 mg Q6H PRN IV; Start 05/30/25 at 16:00; Stop 06/29/25 at 15:59 Pharmacy Profile Note 1 each ONCE MISC; Start 05/30/25 at 16:00; Stop 05/30/25 at 16:26; Status DC Apixaban 5 mg BID PO Last administered on 06/01/25at 10:11; Start 05/30/25 at 21:00; Stop 06/29/25 at 20:59 Metoprolol Tartrate 12.5 mg BID PO Last administered on 06/01/25at 10:11; Start 05/30/25 at 21:00; Stop 06/29/25 at 20:59 Vancomycin HCl 250 ml @ 125 mls/hr Q24H IV; Start 05/31/25 at 16:30; Stop 05/31/25 at 17:35; Status DC Cefepime HCl 2 gm Q24H IVPB Last administered on 05/31/25at 17:18; Start 05/30/25 at 16:30; Stop 06/09/25 at 16:29 Potassium Chloride 100 ml @ 100 mls/hr AD PRN IV Last administered on 05/31/25at 06:46; Start 05/30/25 at 18:30; Stop 06/29/25 at 18:29 Potassium Chloride 20 meq AD PRN PO Last administered on 05/31/25at 06:46; Start 05/30/25 at 18:30; Stop 06/29/25 at 18:29 Potassium Chloride 20 meq AD PRN PO Last administered on 06/01/25at 10:18; Start 05/30/25 at 18:30; Stop 06/29/25 at 18:29 Magnesium Sulfate 50 ml @ 0 mls/hr PROTOCOL IV Last administered on 05/30/25at 20:14; Start 05/30/25 at 18:30; Stop 06/29/25 at 18:29 Pantoprazole Sodium 40 mg DAILY PO Last administered on 06/01/25at 10:10; Start 05/31/25 at 09:00; Stop 06/10/25 at 08:59 Losartan Potassium 25 mg DAILY PO Last administered on 06/01/25at 10:11; Start 05/31/25 at 09:00; Stop 06/30/25 at 08:59 Vancomycin HCl 250 ml @ 125 mls/hr Q24H IV Last administered on 05/31/25at 18:31; Start 05/31/25 at 18:00; Stop 06/10/25 at 17:59 PHYSICAL EXAMINATION: GENERAL: No acute distress. HEENT: Normocephalic, atraumatic. CARDIAC: Positive S1 and S2. No murmurs. LUNGS: crackles at the base bilaterally. ABDOMEN: Bowel sounds present, soft, nontender. EXTREMITIES: 2+ edema bilaterally. Erythema, chronic venous stasis dermatitis, warm to touch NEUROLOGIC: Cranial nerves 2-12 grossly intact. PSYCHIATRIC: Calm. ASSESSMENT: 1. Bilateral lower extremity cellulitis 2. Chronic venous insufficiency and noncompliance with diuretic use 3. 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 Mild aortic stenosis moderate aortic insufficiency on prior echo 5. Hypertension 6. Persistent atrial fibrillation 7. Chronic anticoagulation 8. PAD PLAN: Patient is progressing well with IV diuresis. Her leg edema has improved. A BNP was drawn this morning, results pending. LE venous doppler was negative for DVT. CT of BLE shows possible severe PAD. We will order a LE arterial doppler to further assess. 2D echo reveals EF >55%, no WMA, grade III diastolic dysfunction, mild AR, mild , severely dilated IVC. Continue with IV diuretics. No further workup needed for her chest pain as troponin is negative and she denies further symptoms. I believe her chest pain was secondary to CHF exacerbation. IV antibiotics per primary team. We will continue to follow. Case discussed with Dr. Saba. [facility] Jun 01, 2025 14:37
[2025-06-01 16:00] VITALS: BP 177/81; PULSE 73; RESP 19; TEMP 97.8
[2025-06-01 20:00] VITALS: BP 161/83; PULSE 82; RESP 18; TEMP 98.5; O2SAT 99
--- NOTE | 2025-06-01 20:40 | PN ---
INFECTIOUS DISEASE PROGRESS NOTE Date of Service: Jun 01, 2025 SUBJECTIVE: Patient was seen at bedside in room 318. Some improvement observed to the right lower extremity erythema and edema. Lower extremities are still very tender on palpation. Remaining afebrile, temperature is 97.5. No growth reported yet on the blood cultures. We will continue vancomycin and cefepime. No other issues reported by nursing. PHYSICAL EXAM EYES: Anicteric. Pupils equal and reactive. HENT: No oral thrush seen, moist Oral mucosa NECK: Supple, no JVD or thyromegaly. LUNGS: Good air entry. No rales, no rhonchi. CARDIOVASCULAR: S1, S2 regular. No murmur heard. ABDOMEN: Soft, non tender, bowel sounds present. CENTRAL NERVOUS SYSTEM: Awake, alert, oriented x 3. SKIN: No rashes, no swelling. LYMPHATICS: No peripheral lymphadenopathy MUSCULOSKELETAL: No joint swelling, erythema or tenderness. EXTREMITIES: No cyanosis or clubbing. Lower extremities erythema and edema. BACK: No deformity, no pressure ulcer. GENITOURINARY: No dysuria or hematuria Vital Sign (Last 12 Hours) 06/01/25 06/01/25 12:00 16:00 Temp 98.1 97.9 Pulse 71 73 Resp 19 19 B/P (MAP) 155/68 177/81 Pulse Ox 97 96 O2 Delivery Room Air Room Air Intake & Output (last 24hrs) 05/31/25 05/31/25 06/01/25 15:00 23:00 07:00 Intake Total 50.0 ml 350 ml Output Total 600 ml 700 ml 310 ml Balance -550.0 ml -350 ml -310 ml LABS: Laboratory: Test 06/01/25 09:08 06/01/25 04:35 05/31/25 05:52 05/31/25 05:39 Range/Units Sodium Level 139 136-145 mmol/L Potassium Level 3.4 L 3.5-5.1 mmol/L Chloride Level 105 101-111 mmol/L Carbon Dioxide Level 28 21-32 mmol/L Blood Urea Nitrogen 25 H 7-18 mg/dL Creatinine 1.0 0.5-1.0 mg/dL Glomerular Filtration Rate Calc 57 >90 mL/min Random Glucose 122 H 70-105 mg/dL Total Calcium 8.3 L 8.5-10.1 mg/dL White Blood Count 7.6 4.8-10.8 K/uL Red Blood Count 4.29 4.00-5.50 MIL/uL Hemoglobin 13.1 12.0-16.0 g/dL Hematocrit 39.3 36-48 % Mean Corpuscular Volume 91.6 79-99 fL Mean Corpuscular Hemoglobin 30.5 27.0-33.0 pg Mean Corpuscular Hemoglobin Concent 33.3 32.0-36.0 g/dL Red Cell Distribution Width 16.4 H 11.0-15.5 % Platelet Count 183 130-400 K/uL Mean Platelet Volume 10.4 7.5-10.5 fL Nucleated Red Blood Cells 0.0 0.0-0.19 % B-Type Natriuretic Peptide 554 H 0-100 pg/mL Immature Granulocyte % (Auto) 0.1 0-1 % Neutrophils (%) (Auto) 64.3 40.0-77.0 % Lymphocytes (%) (Auto) 19.5 L 21.0-51.0 % Monocytes (%) (Auto) 12.4 3.0-13.0 % Eosinophils (%) (Auto) 3.1 0.0-8.0 % Basophils (%) (Auto) 0.6 0.0-5.0 % Neutrophils # (Auto) 4.6 1.8-7.7 K/uL Lymphocytes # (Auto) 1.4 1.0-4.8 K/uL Monocytes # (Auto) 0.9 0.1-1.0 K/uL Eosinophils # (Auto) 0.22 0.00-0.70 K/uL Basophils # (Auto) 0.04 0.00-0.20 K/uL Absolute Immature Granulocyte (auto 0.01 0-1 K/uL Magnesium Level 2.00 1.80-2.40 mg/dL ASSESSMENT: Bilateral lower extremity cellulitis. Bilateral lower extremity edema. Peripheral artery disease. AFib, on chronic anticoagulation. Hypokalemia. PLAN: Continue vancomycin per pharmacy protocol. Continue cefepime. Continue pain management. Continue GI prophylaxis. We will follow up on the culture results. Maintain lower extremities elevated. This case was reviewed and discussed with my supervising physician Dr. Funes and the above assessment and plan was formulated and agreed upon. ATTESTATION BY PHYSICIAN I have seen and examined the patient. I reviewed the documentation, medical decision making, and treatment plan as noted by the mid-level provider above. I agree with the findings and plan of care. ROXY FUNES MD, [facility] Jun 01, 2025 20:40
[2025-06-02] VITALS: BP 127/61; PULSE 75; RESP 18; TEMP 98.6
[2025-06-02 04:00] VITALS: BP 134/70; PULSE 72; RESP 18; TEMP 98.9
[2025-06-02 05:14] LABS: NUCLEATED RED BLOOD CELLS 0.0 % (0.0-0.19); PLATELET COUNT (AUTO) 192.0 K/uL (130-400); RED BLOOD CELL COUNT(AUTO) 4.28 MIL/uL (4.00-5.50); RED CELL DISTRIBUTION WIDTH 16.4 % (11.0-15.5); WHITE BLOOD COUNT (AUTO) 7.0 K/uL (4.8-10.8)
[2025-06-02 05:33] LABS: CREATININE 0.9 mg/dL (0.5-1.0); GLOMERULAR FILTR. RATE CALC 65.0 mL/min (>90); GLUCOSE,RANDOM 100.0 mg/dL (70-105); LDL DIRECT 49.0 mg/dL (0-99); SODIUM SERUM 141.0 mmol/L (136-145); UREA NITROGEN, BLOOD 23.0 mg/dL (7-18)
--- NOTE | 2025-06-02 05:49 | HMCIMG ---
EXAM: US bilateral Lower Extremity arterial doppler Ultrasound CLINICAL HISTORY: pad TECHNIQUE: Real-time ultrasound scan of the bilateral lower extremity arterial doppler with image documentation. COMPARISON: None provided. FINDINGS: ARTERIES: Bilateral common femoral, popliteal, anterior tibial, posterior tibial, and dorsalis pedis arteries are visualised bilaterally. Mild diffuse intimal thickening with scattered atherosclerotic plaques noted bilaterally. Arterial luminal patency is maintained. No hemodynamically significant stenosis identified. Color Doppler demonstrates normal color filling without aliasing. Spectral Doppler waveforms are predominantly triphasic to biphasic in the examined segments. Peak systolic velocities are within normal limits. No evidence of arterial occlusion. IMPRESSION: 1. No acute findings. 2. Mild bilateral lower extremity atherosclerosis without hemodynamically significant stenosis. /Raquel
[2025-06-02 08:00] VITALS: BP_SYST 138; BP_SYST 142; BP_DIAS 70; BP_DIAS 71; PULSE 106; PULSE 73; RESP 17; RESP 20; TEMP 100.1; TEMP 97.5; O2SAT 82; O2SAT 97
--- NOTE | 2025-06-02 08:48 | PN ---
[facility] PROGRESS NOTE Date of Service: Jun 02, 2025 Time of Service: 08:48 SUBJECTIVE: HISTORY OF PRESENT ILLNESS: This 80-year-old female with underlying history of aortic insufficiency, history of persistent atrial fibrillation maintained on chronic anticoagulation with Eliquis, peripheral arterial disease, May-Thurner syndrome syndrome who presented to the ER for further evaluation of severe lower extremity edema with erythema and shortness of breadth. Symptoms have been ongoing for the past one week. , patient has noticed that her legs have been significantly swollen extending into the thighs. She has been having PND, orthopnea and shortness of breadth minimal activity. She is unable to ambulate due to significant lower extremity swelling. She does have history of chronic lower extremity edema which is usually minimal and she has been maintained on outpatient treatment with Lasix 20 mg daily. Patient denies any falls. She denies any focal weakness of upper or lower extremities. She has been maintained on anticoagulation with Eliquis chronically for management of atrial fibrillation. She also reports taking metoprolol tartrate 12.5 mg b.i.d. She does report having some chronic wound involving the right lower extremity which is healing well. On presentation to the hospital, patient was noted to be afebrile with T-max of 98.6 F, heart rate of 75, blood pressure 166/89. Labs on presentation showed WBC count of 7500, hemoglobin 14.6, platelet count of 204 ,000. BMP showed sodium of 139, potassium 4.7, chloride of 106, creatinine of 0.9, BNP of 733. Patient will be admitted for further management of decompensated heart failure exacerbation with significant volume overload. Patient with bilateral lower extremity venous stasis dermatitis with venous insufficiency with findings of lower extremity cellulitis. Patient will receive IV diuretics, we will be started on broad-spe ctrum antibiotics. Consultation with Cardiology Infectious Disease will be requested. We will see how patient progresses in the next 48-72 hours. 05/31/2025: Patient was seen and evaluated this morning, no family at bedside. He is awake, alert, oriented x3, saturating 98% with room air. Patient said that her bilateral lower extremity swelling has been increasing significantly over past1 week, patient has red, dry, severe pain in bilateral lower extremities. Morning labs revealed potassium 2.3, sodium 143, BUN 20, creatinine 1, white count 7.1, protein creatinine ratio 1.04. Chest x-ray showed pulmonary venous congestion with elevated right hemidiaphragm. Venous Doppler negative for DVT. Renal ultrasound unremarkable. Pending 2D echo, CT bilateral lower extremities. Patient currently on IV Lasix 40 mg b.i.d., metoprolol 12.5 mg b.i.d., [id number] mg daily, Eliquis5 mg b.i.d., IV vanco Q 24, cefepime2 g Q 24. Cardiology, Infectious Disease on board for further evaluation. 06/01/2025: Patient was seen and evaluated this morning, no family at bedside. She is awake, alert, oriented x3, saturating 98% with room air. Patient says that she is feeling lot better, her lower extremity swelling has been improved, complains of dry and itchy lower extremities. Morning labs revealed sodium 140, potassium 3.1, BNP 554, negative fluid balance of 1210. 2D echocardiogram showed LVEF> 55%, stage III diastolic dysfunction. Mild aortic stenosis and regurgitation, severe tricuspid valve regurgitation. CT bilateral lower extremity showed cellulitis with diffuse skin thickening and cobblestoning of subcutaneous fat; no CT evidence of drainable abscess or necrotizing fascitis. Advanced calcific atherosclerosis in bilateral lower extremity arteries. Continue IV Lasix 40 mg b.i.d., metoprolol 12.5 mg b.i.d., [id number] mg daily, Eliquis5 mg b.i.d., IV vanco Q 24, cefepime2 g Q 24 and we will replace potassium per protocol. Cardiology, Infectious Disease on board. REVIEW OF SYSTEMS CONSTITUTIONAL: Denies fevers, chills, or night sweats. No unintentional weight loss reported. NEUROLOGICAL: Denies headache, amaurosis fugax, motor weakness, sensory deficit, vertigo/spinning sensation, gait abnormalities, or tremors. ENT: No hearing loss, otalgia, otorrhea, rhinitis, rhinorrhea, hoarseness, or sore throat. CARDIOVASCULAR: Shortness of breadth with minimal ambulation, PND, orthopnea, progressive lower extremity edema PULMONARY: Denies any shortness of breath, cough, phlegm/sputum, hemoptysis, pleuritic chest pain. SLEEP: Denies morning headaches, daytime somnolence or napping. Denies difficulty falling asleep, staying asleep, waking from sleep. Denies knowledge of snoring. GASTROINTESTINAL: Denies any type of dysphagia to either liquids or solids. Denies nausea, vomiting, pyrosis, early satiety, abdominal pain, diarrhea, constipation, or changes in stool consistency or caliber. Denies coffee-ground emesis, hematemesis, hematochezia, or melanotic stools. GENITOURINARY: Denies frequency, urgency, nocturia, hematuria or incontinence (Storage/Irritative symptoms.) Low urinary stream, straining to void, urinary intermittency or hesitancy, splitting of the voiding stream, terminal dribbling. ENDOCRINOLOGIC: Denies polyuria, polydipsia, polyphagia or heat/cold intolerances. HEMATOLOGIC: Denies thrombophilia/previous clots, or coagulopathy/bleeding disorders. ONCOLOGIC: Denies personal history of malignancy. DERMATOLOGIC: Significant redness, warmth involving the bilateral lower extre mities PSYCHIATRIC: Denies any suicidal or homicidal ideation. Denies hallucinations. PHYSICAL EXAM GENERAL APPEARANCE: The patient is awake, alert, and oriented, in no acute cardiopulmonary distress. NEUROLOGICAL: Cranial nerves II-XII grossly intact. Motor is 5/5 in bilateral upper and lower extremities proximal to distal. No sensory deficits. HEENT: Face is symmetric. Pupils are equal and reactive. Extraocular movements are intact. NECK: Supple. No JVD. No thyromegaly. No submental, submandibular, pre- /postauricular, occipital or supraclavicular lymphadenopathy. CHEST: Normal chest expansion. No Telemetry. LUNGS: Crackles noted of bilateral lower lung bases CARDIOVASCULAR: Regular. S1 and S2 normal. No appreciable rubs, murmurs or gallops. ABDOMEN: Soft, nontender, and nondistended. There is no rebound, voluntary guarding, or rigidity. : Deferred. No Schmitz. EXTREMITIES: 3+ pitting edema noted at bilateral lower extremities with edema extending into the thighs with significant erythema noted SKIN: As noted above Vital Signs (last 8hr) Date Time Temp Pulse Resp B/P (MAP) Pulse Ox O2 Delivery O2 Flow Rate FiO2 06/02/25 08:00 100.0 106 17 138/71 96 Room Air 06/02/25 08:00 97.5 73 20 142/70 98 Room Air 06/02/25 04:00 99.0 72 18 134/70 96 Room Air LABS: Laboratory: Test 06/02/25 05:04 Range/Units White Blood Count 7.0 4.8-10.8 K/uL Red Blood Count 4.28 4.00-5.50 MIL/uL Hemoglobin 13.0 12.0-16.0 g/dL Hematocrit 39.2 36-48 % Mean Corpuscular Volume 91.6 79-99 fL Mean Corpuscular Hemoglobin 30.4 27.0-33.0 pg Mean Corpuscular Hemoglobin Concent 33.2 32.0-36.0 g/dL Red Cell Distribution Width 16.4 H 11.0-15.5 % Platelet Count 192 130-400 K/uL Mean Platelet Volume 10.1 7.5-10.5 fL Nucleated Red Blood Cells 0.0 0.0-0.19 % Sodium Level 141 136-145 mmol/L Potassium Level 3.6 3.5-5.1 mmol/L Chloride Level 106 101-111 mmol/L Carbon Dioxide Level 28 21-32 mmol/L Blood Urea Nitrogen 23 H 7-18 mg/dL Creatinine 0.9 0.5-1.0 mg/dL Glomerular Filtration Rate Calc 65 >90 mL/min Random Glucose 100 70-105 mg/dL Total Calcium 8.1 L 8.5-10.1 mg/dL B-Type Natriuretic Peptide 445 H 0-100 pg/mL LDL Cholesterol 49 0-99 mg/dL Current Medications Medications (Trade) Dose Ordered Sig/Fatuma Route PRN Reason Start Time Stop Time Status Last Admin Dose Admin Acetaminophen (TYLenol 325MG TAB) 650 mg Q6H PRN PO MILD PAIN (1-3) 05/30/25 16:00 06/29/25 15:59 Apixaban (EliquIS) 5 mg BID PO 05/30/25 21:00 06/29/25 20:59 06/02/25 07:59 5 MG Cefepime HCl (MAXipime 2 gm vial) 2 gm Q24H IVPB 05/30/25 16:30 06/09/25 16:29 06/01/25 17:03 2 GM Furosemide (LASix 40MG VIAL) 40 mg BID IV 05/30/25 21:00 06/29/25 20:59 06/02/25 07:59 40 MG Furosemide (LASix 40MG VIAL) 40 mg Q8H IV 05/30/25 14:30 05/30/25 15:56 DC 05/30/25 15:21 40 MG Labetalol HCl (TRANdate 20MG SYG) 10 mg Q6H PRN IV sor SBP> 170 05/30/25 16:00 06/29/25 15:59 Losartan Potassium (CozAAR 25MG TAB) 25 mg DAILY PO 05/31/25 09:00 06/30/25 08:59 06/02/25 07:59 25 MG Magnesium Sulfate 50 ml @ 0 mls/hr PROTOCOL IV 05/30/25 18:30 06/29/25 18:29 05/30/25 20:14 49 MLS/HR Metoprolol Tartrate (loprESSOR) 12.5 mg BID PO 05/30/25 21:00 06/29/25 20:59 06/02/25 07:59 12.5 MG Ondansetron HCl (zoFRAN 4MG INJ) 4 mg Q6H PRN IVP NAUSEA/VOMITING 05/30/25 16:00 06/29/25 15:59 Pantoprazole Sodium (PROTonix 40MG TAB) 40 mg DAILY PO 05/31/25 09:00 06/10/25 08:59 06/02/25 07:59 40 MG Pharmacy Profile Note (Pharmacy Communication) 1 each ONCE MISC 05/30/25 16:00 05/30/25 16:26 DC Piperacillin Sod/ Tazobactam Sod (Zosyn 3.375gm+NS 50ml) 3.375 gm Q8H IV 05/30/25 14:30 05/30/25 16:06 DC 05/30/25 15:21 3.375 GM Potassium Chloride 100 ml @ 100 mls/hr AD PRN IV POTASSIUM PROTOCOL 05/30/25 18:30 06/29/25 18:29 05/31/25 06:46 100 MLS/HR Potassium Chloride (K-Dur/Klor-Con 20meq) 20 meq AD PRN PO POTASSIUM PROTOCOL 05/30/25 18:30 06/29/25 18:29 06/01/25 17:55 20 MEQ Potassium Chloride (KCl 10% Elixir 20meq/15ml) 20 meq AD PRN PO POTASSIUM PROTOCOL 05/30/25 18:30 06/29/25 18:29 06/02/25 06:02 20 MEQ Vancomycin HCl 250 ml @ 125 mls/hr Q24H IV 05/31/25 16:30 05/31/25 17:35 DC Vancomycin HCl 250 ml @ 125 mls/hr Q24H IV 05/31/25 18:00 06/10/25 17:59 06/01/25 18:49 125 MLS/HR DIAGNOSTICS / RADIOLOGY: [ ] ASSESSMENT: Decompensated heart failure exacerbation with history of diastolic dysfunction, POA History of atrial fibrillation on chronic Eliquis, POA History of aortic insufficiency and aortic stenosis, POA Bilateral lower extremity cellulitis, POA Significant volume overload, POA History of hypertension, POA History of hyperlipidemia, POA History of healing wound in one two the right lower extremity, POA History of bilateral lower extremity venous stasis dermatitis with history of venous insufficiency, POA History of 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 Today BNP 544, negative fluid balance 1210 Patient on 1.5 L fluid restriction Cardiology on board. Bilateral lower extremity cellulitis, POA Patient has redness, pain and swelling of bilateral lower extremities Venous Doppler negative for DVT Continue IV vancomycin Q 24 Continue IV cefepime [address] bilateral lower extremity showed cellulitis with diffuse skin thickening and cobblestoning of subcutaneous fat; no CT evidence of drainable abscess or necrotizing fascitis. Advanced calcific atherosclerosis in bilateral lower extremity arteries. Wound care, infectious disease on board for further evaluation History of atrial fibrillation on chronic Eliquis, POA Patient has history of persistent AFib on chronic Eliquis therapy Continue Eliquis5 mg b.i.d. daily Continue metoprolol 12.5 mg b.i.d. Cardiology on board History of hypertension, POA On presentation blood pressure was 166/89 Continue metoprolol 12.5 mg b.i.d. Patient was started on [id number] mg daily by Cardiology GI prophylaxis with Protonix DVT prophylaxis with CristyquRICKY Garcia MD Jun 02, 2025 08:48
--- NOTE | 2025-06-02 09:14 | PN ---
[facility] Cardiology Progress Note Date Patient Seen: Jun 02, 2025 Time of Visit: 09:14 PROBLEM LIST: [1. Bilateral lower extremity cellulitis 2. Chronic venous insufficiency and noncompliance with diuretic use 3. 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 Mild aortic stenosis moderate aortic insufficiency on prior echo 5. Hypertension 6. Persistent atrial fibrillation 7. Chronic anticoagulation 8. Echo this admission, EF greater than 55%, stage III diastolic dysfunction 9. Acute on chronic diastolic CHF, secondary to diuretic noncompliance ] [ Patient resting in bed at this time. Leg still hurts but they are much less swollen. She does admit to noncompliance with her diuretics; states she is on Lasix 20 mg daily at home. Denies chest discomfort or shortness of breath. No palpitations. -1250 cc fluid balance yesterday, -350 so far today. Bilateral iliac vein stents are patent per CT scans. Arterial Dopplers did not show any significant insufficiency. Labs notable for LDL of 48, BNP of 445. Physical exam noted for irregularly irregular but rate controlled rhythm. Advanced venous stasis changes bilaterally. Patient will be transitioned to Lasix 40 p.o. b.i.d.. She can be discharged with her home dose. She has been admonished about noncompliance. Continue Edda Chaudhari. Probable discharge tomorrow.] ZOË ZHANG PAC Jun 02, 2025 09:14
[2025-06-02 12:00] VITALS: BP 132/57; PULSE 68; RESP 16; TEMP 97.8
--- NOTE | 2025-06-02 14:48 | PN ---
[facility] PROGRESS NOTE Date of Service: Jun 02, 2025 Time of Service: 14:48 SUBJECTIVE: HISTORY OF PRESENT ILLNESS: This 80-year-old female with underlying history of aortic insufficiency, history of persistent atrial fibrillation maintained on chronic anticoagulation with Eliquis, peripheral arterial disease, May-Thurner syndrome syndrome who presented to the ER for further evaluation of severe lower extremity edema with erythema and shortness of breadth. Symptoms have been ongoing for the past one week. , patient has noticed that her legs have been significantly swollen extending into the thighs. She has been having PND, orthopnea and shortness of breadth minimal activity. She is unable to ambulate due to significant lower extremity swelling. She does have history of chronic lower extremity edema which is usually minimal and she has been maintained on outpatient treatment with Lasix 20 mg daily. Patient denies any falls. She denies any focal weakness of upper or lower extremities. She has been maintained on anticoagulation with Eliquis chronically for management of atrial fibrillation. She also reports taking metoprolol tartrate 12.5 mg b.i.d. She does report having some chronic wound involving the right lower extremity which is healing well. On presentation to the hospital, patient was noted to be afebrile with T-max of 98.6 F, heart rate of 75, blood pressure 166/89. Labs on presentation showed WBC count of 7500, hemoglobin 14.6, platelet count of 204 ,000. BMP showed sodium of 139, potassium 4.7, chloride of 106, creatinine of 0.9, BNP of 733. Patient will be admitted for further management of decompensated heart failure exacerbation with significant volume overload. Patient with bilateral lower extremity venous stasis dermatitis with venous insufficiency with findings of lower extremity cellulitis. Patient will receive IV diuretics, we will be started on broad-spe ctrum antibiotics. Consultation with Cardiology Infectious Disease will be requested. We will see how patient progresses in the next 48-72 hours. 05/31/2025: Patient was seen and evaluated this morning, no family at bedside. He is awake, alert, oriented x3, saturating 98% with room air. Patient said that her bilateral lower extremity swelling has been increasing significantly over past1 week, patient has red, dry, severe pain in bilateral lower extremities. Morning labs revealed potassium 2.3, sodium 143, BUN 20, creatinine 1, white count 7.1, protein creatinine ratio 1.04. Chest x-ray showed pulmonary venous congestion with elevated right hemidiaphragm. Venous Doppler negative for DVT. Renal ultrasound unremarkable. Pending 2D echo, CT bilateral lower extremities. Patient currently on IV Lasix 40 mg b.i.d., metoprolol 12.5 mg b.i.d., [id number] mg daily, Eliquis5 mg b.i.d., IV vanco Q 24, cefepime2 g Q 24. Cardiology, Infectious Disease on board for further evaluation. 06/01/2025: Patient was seen and evaluated this morning, no family at bedside. She is awake, alert, oriented x3, saturating 98% with room air. Patient says that she is feeling lot better, her lower extremity swelling has been improved, complains of dry and itchy lower extremities. Morning labs revealed sodium 140, potassium 3.1, BNP 554, negative fluid balance of 1210. 2D echocardiogram showed LVEF> 55%, stage III diastolic dysfunction. Mild aortic stenosis and regurgitation, severe tricuspid valve regurgitation. CT bilateral lower extremity showed cellulitis with diffuse skin thickening and cobblestoning of subcutaneous fat; no CT evidence of drainable abscess or necrotizing fascitis. Advanced calcific atherosclerosis in bilateral lower extremity arteries. Continue IV Lasix 40 mg b.i.d., metoprolol 12.5 mg b.i.d., [id number] mg daily, Eliquis5 mg b.i.d., IV vanco Q 24, cefepime2 g Q 24 and we will replace potassium per protocol. Cardiology, Infectious Disease on board. 06/02/2025: Patient was seen and evaluated this morning, family at bedside. She is awake, alert, oriented x3, saturating 96% with room air. Patient says that she is doing good, her lower extremity swelling has been improving, denies any new or worsening symptoms. Morning labs revealed sodium 141, potassium 3.6, BNP 445, BUN 23 , creatinine 0.9. Arterial ultrasound of bilateral lower extremities mild arteriosclerosis without hemodynamically significant stenosis. IV Lasix has been transition to oral Lasix 40 mg twice daily, Neurontin 100 mg t.i.d. has been started for pain, continue metoprolol 12.5 mg b.i.d., [id number] mg daily, Eliquis5 mg b.i.d., IV vanco Q 24, cefepime2 g Q 24. Cardiology, Infectious Disease on board. REVIEW OF SYSTEMS CONSTITUTIONAL: Denies fevers, chills, or night sweats. No unintentional weight loss reported. NEUROLOGICAL: Denies headache, amaurosis fugax, motor weakness, sensory deficit, vertigo/spinning sensation, gait abnormalities, or tremors. ENT: No hearing loss, otalgia, otorrhea, rhinitis, rhinorrhea, hoarseness, or sore throat. CARDIOVASCULAR: Shortness of breadth with minimal ambulation, PND, orthopnea, progressive lower extremity edema PULMONARY: Denies any shortness of breath, cough, phlegm/sputum, hemoptysis, pleuritic chest pain. SLEEP: Denies morning headaches, daytime somnolence or napping. Denies difficulty falling asleep, staying asleep, waking from sleep. Denies knowledge of snoring. GASTROINTESTINAL: Denies any type of dysphagia to either liquids or solids. Denies nausea, vomiting, pyrosis, early satiety, abdominal pain, diarrhea, constipation, or changes in stool consistency or caliber. Denies coffee-ground emesis, hematemesis, hematochezia, or melanotic stools. GENITOURINARY: Denies frequency, urgency, nocturia, hematuria or incontinence (Storage/Irritative symptoms.) Low urinary stream, straining to void, urinary intermittency or hesitancy, splitting of the voiding stream, terminal dribbling. ENDOCRINOLOGIC: Denies polyuria, polydipsia, polyphagia or heat/cold intolerances. HEMATOLOGIC: Denies thrombophilia/previous clots, or coagulopathy/bleeding disorders. ONCOLOGIC: Denies personal history of malignancy. DERMATOLOGIC: Significant redness, warmth involving the bilateral lower extremities PSYCHIATRIC: Denies any suicidal or homicidal ideation. Denies hallucinations. PHYSICAL EXAM GENERAL APPEARANCE: The patient is awake, alert, and oriented, in no acute cardiopulmonary distress. NEUROLOGICAL: Cranial nerves II-XII grossly intact. Motor is 5/5 in bilateral upper and lower extremities proximal to distal. No sensory deficits. HEENT: Face is symmetric. Pupils are equal and reactive. Extraocular movements are intact. NECK: Supple. No JVD. No thyromegaly. No submental, submandibular, pre- /postauricular, occipital or supraclavicular lymphadenopathy. CHEST: Normal chest expansion. No Telemetry. LUNGS: Crackles noted of bilateral lower lung bases CARDIOVASCULAR: Regular. S1 and S2 normal. No appreciable rubs, murmurs or gallops. ABDOMEN: Soft, nontender, and nondistended. There is no rebound, voluntary guarding, or rigidity. : Deferred. No Schmitz. EXTREMITIES: 3+ pitting edema noted at bilateral lower extremities with edema extending into the thighs with significant erythema noted SKIN: As noted above Vital Signs (last 8hr) Date Time Temp Pulse Resp B/P (MAP) Pulse Ox O2 Delivery O2 Flow Rate FiO2 06/02/25 08:00 97.5 73 20 142/70 98 Room Air 06/02/25 08:00 97 Room Air* 0 21 LABS: Laboratory: Test 06/02/25 05:04 Range/Units White Blood Count 7.0 4.8-10.8 K/uL Red Blood Count 4.28 4.00-5.50 MIL/uL Hemoglobin 13.0 12.0-16.0 g/dL Hematocrit 39.2 36-48 % Mean Corpuscular Volume 91.6 79-99 fL Mean Corpuscular Hemoglobin 30.4 27.0-33.0 pg Mean Corpuscular Hemoglobin Concent 33.2 32.0-36.0 g/dL Red Cell Distribution Width 16.4 H 11.0-15.5 % Platelet Count 192 130-400 K/uL Mean Platelet Volume 10.1 7.5-10.5 fL Nucleated Red Blood Cells 0.0 0.0-0.19 % Sodium Level 141 136-145 mmol/L Potassium Level 3.6 3.5-5.1 mmol/L Chloride Level 106 101-111 mmol/L Carbon Dioxide Level 28 21-32 mmol/L Blood Urea Nitrogen 23 H 7-18 mg/dL Creatinine 0.9 0.5-1.0 mg/dL Glomerular Filtration Rate Calc 65 >90 mL/min Random Glucose 100 70-105 mg/dL Total Calcium 8.1 L 8.5-10.1 mg/dL B-Type Natriuretic Peptide 445 H 0-100 pg/mL LDL Cholesterol 49 0-99 mg/dL Current Medications Medications (Trade) Dose Ordered Sig/Fatuma Route PRN Reason Start Time Stop Time Status Last Admin Dose Admin Acetaminophen (TYLenol 325MG TAB) 650 mg Q6H PRN PO MILD PAIN (1-3) 05/30/25 16:00 1/21/26 15:59 Apixaban (EliquIS) 5 mg BID PO 05/30/25 21:00 06/29/25 20:59 06/02/25 07:59 5 MG Cefepime HCl (MAXipime 2 gm vial) 2 gm Q24H IVPB 05/30/25 16:30 06/09/25 16:29 06/01/25 17:03 2 GM Furosemide (LASix 40MG TAB) 40 mg BID@09,17 PO 06/02/25 17:00 07/02/25 16:59 Furosemide (LASix 40MG VIAL) 40 mg BID IV 05/30/25 21:00 06/02/25 09:42 DC 06/02/25 07:59 40 MG Furosemide (LASix 40MG VIAL) 40 mg Q8H IV 05/30/25 14:30 05/30/25 15:56 DC 05/30/25 15:21 40 MG Labetalol HCl (TRANdate 20MG SYG) 10 mg Q6H PRN IV sor SBP> 170 05/30/25 16:00 06/29/25 15:59 Losartan Potassium (CozAAR 25MG TAB) 25 mg DAILY PO 05/31/25 09:00 06/30/25 08:59 06/02/25 07:59 25 MG Magnesium Sulfate 50 ml @ 0 mls/hr PROTOCOL IV 05/30/25 18:30 06/29/25 18:29 05/30/25 20:14 49 MLS/HR Metoprolol Tartrate (loprESSOR) 12.5 mg BID PO 05/30/25 21:00 06/29/25 20:59 06/02/25 07:59 12.5 MG Ondansetron HCl (zoFRAN 4MG INJ) 4 mg Q6H PRN IVP NAUSEA/VOMITING 05/30/25 16:00 06/29/25 15:59 Pantoprazole Sodium (PROTonix 40MG TAB) 40 mg DAILY PO 05/31/25 09:00 06/10/25 08:59 06/02/25 07:59 40 MG Pharmacy Profile Note (Pharmacy Communication) 1 each ONCE MISC 05/30/25 16:00 05/30/25 16:26 DC Piperacillin Sod/ Tazobactam Sod (Zosyn 3.375gm+NS 50ml) 3.375 gm Q8H IV 05/30/25 14:30 05/30/25 16:06 DC 05/30/25 15:21 3.375 GM Potassium Chloride 100 ml @ 100 mls/hr AD PRN IV POTASSIUM PROTOCOL 05/30/25 18:30 06/29/25 18:29 05/31/25 06:46 100 MLS/HR Potassium Chloride (K-Dur/Klor-Con 20meq) 20 meq AD PRN PO POTASSIUM PROTOCOL 05/30/25 18:30 06/29/25 18:29 06/01/25 17:55 20 MEQ Potassium Chloride (KCl 10% Elixir 20meq/15ml) 20 meq AD PRN PO POTASSIUM PROTOCOL 05/30/25 18:30 06/29/25 18:29 06/02/25 06:02 20 MEQ Vancomycin HCl 250 ml @ 125 mls/hr Q24H IV 05/31/25 16:30 05/31/25 17:35 DC Vancomycin HCl 250 ml @ 125 mls/hr Q24H IV 05/31/25 18:00 06/10/25 17:59 06/01/25 18:49 125 MLS/HR DIAGNOSTICS / RADIOLOGY: [ ] [place] [address] IMAGING REPORT Signed PATIENT: ALEJANDRO ESTRELLA MR#: [id number] : 1945 SEX: F AGE: 80 LOCATION: 3CH ORDER 142 STATUS: ADM IN REPORT#: [id number] SERVICE [id number] REASON: pad ORDERING PHYSICIAN: SHEELA LINCOLN PAC PROCEDURE: ART B LE - US ARTERIAL BILAT LOW EXT DUPL EXAM: US bilateral Lower Extremity arterial doppler Ultrasound CLINICAL HISTORY: pad TECHNIQUE: Real-time ultrasound scan of the bilateral lower extremity arterial doppler with image documentation. COMPARISON: None provided. FINDINGS: ARTERIES: Bilateral common femoral, popliteal, anterior tibial, posterior tibial, and dorsalis pedis arteries are visualised bilaterally. Mild diffuse intimal thickening with scattered atherosclerotic plaques noted bilaterally. Arterial luminal patency is maintained. No hemodynamically significant stenosis identified. Color Doppler demonstrates normal color filling without aliasing. Spectral Doppler waveforms are predominantly triphasic to biphasic in the examined segments. Peak systolic velocities are within normal limits. No evidence of arterial occlusion. IMPRESSION: 1. No acute findings. 2. Mild bilateral lower extremity atherosclerosis without hemodynamically significant stenosis. /Lamar DICTATED BY: MIGUEL SHETH MD DATE: 06/02/25648 ELECTRONICALLY SIGNED BY: MIGUEL SHETH MD DATE: 06/02/25648 ASSESSMENT: Decompensated heart failure exacerbation with history of diastolic dysfunction, POA History of atrial fibrillation on chronic Eliquis, POA History of aortic insufficiency and aortic stenosis, POA Bilateral lower extremity cellulitis, POA Significant volume overload, POA History of hypertension, POA History of hyperlipidemia, POA History of healing wound in one two the right lower extremity, POA History of bilateral lower extremity venous stasis dermatitis with history of venous insufficiency, POA History of May-Thurner syndrome status post external iliac venous stent in 03/30, POA History of peripheral arterial disease, POA PLAN: Decompensated heart failure exacerbation with history of diastolic dysfunction, POA 2D echo from 05/31/2025 showed LVEF 55>%, stage III diastolic dysfunction On presentation BNP 733, chest x-ray revealed pulmonary venous congestion IV Lasix 40 mg b.i.d. been switched to oral Lasix 40 mg b.i.d. Today BNP 455 Patient on 1.5 L fluid restriction Cardiology on board. Bilateral lower extremity cellulitis, POA Patient has redness, pain and swelling of bilateral lower extremities Venous Doppler negative for DVT Continue IV vancomycin Q 24 Continue IV cefepime 2 g Q 24 Neurontin [address] for pain CT bilateral lower extremity showed cellulitis with diffuse skin thickening and cobblestoning of subcutaneous fat; no CT evidence of drainable abscess or necrotizing fascitis. Advanced calcific atherosclerosis in bilateral lower extremity arteries. Wound care, infectious disease on board for further evaluation History of atrial fibrillation on chronic Eliquis, POA Patient has history of persistent AFib on chronic Eliquis therapy Continue Eliquis5 mg b.i.d. daily Continue metoprolol 12.5 mg b.i.d. Cardiology on board History of hypertension, POA On presentation blood pressure was 166/89 Continue metoprolol 12.5 mg b.i.d. Patient was started on [id number] mg daily by Cardiology GI prophylaxis with Protonix DVT prophylaxis with Eliquis ATTESTATION BY PHYSICIAN I have seen and examined the patient. I reviewed the documentation, medical decision making, and treatment plan as noted by the resident physician above. I agree with the findings and plan of care. DANIEL US MD, ADIL SHAH QUADRI MD Jun 02, 2025 14:48
[2025-06-02 16:00] VITALS: BP 148/66; PULSE 82; RESP 24; TEMP 98.2
[2025-06-02] MEDS ORDERED: VANCOMYCIN PROTOCOL PER PHARMACY IV SCH (18:00)
--- NOTE | 2025-06-02 19:51 | PN ---
INFECTIOUS DISEASE PROGRESS NOTE Date of Service: Jun 02, 2025 SUBJECTIVE: Patient was seen at bedside in room 318. Patient reported the pain to lower extremity has improved and was able to ambulate to restroom with less pain. No fever , temperature is 97.9. Blood culture results remaining negative. We will continue vancomycin and cefepime and re-evaluate patient tomorrow. PHYSICAL EXAM EYES: Anicteric. Pupils equal and reactive. HENT: No oral thrush seen, moist Oral mucosa NECK: Supple, no JVD or thyromegaly. LUNGS: Good air entry. No rales, no rhonchi. CARDIOVASCULAR: S1, S2 regular. No murmur heard. ABDOMEN: Soft, non tender, bowel sounds present. CENTRAL NERVOUS SYSTEM: Awake, alert, oriented x 3. SKIN: No rashes, no swelling. LYMPHATICS: No peripheral lymphadenopathy MUSCULOSKELETAL: No joint swelling, erythema or tenderness. EXTREMITIES: No cyanosis or clubbing. Lower extremities erythema and edema. BACK: No deformity, no pressure ulcer. GENITOURINARY: No dysuria or hematuria Vital Sign (Last 12 Hours) 06/02/25 06/02/25 06/02/25 06/02/25 08:00 08:00 08:00 12:00 Temp 97.5 97.9 Pulse 73 68 Resp 20 16 B/P (MAP) 142/70 132/57 Pulse Ox 97 98 82 99 O2 Delivery Room Air* Room Air Room Air* Room Air O2 Flow Rate 0 0 FiO2 21 21 06/02/25 16:00 Temp 98.2 Pulse 82 Resp 24 B/P (MAP) 148/66 Pulse Ox 100 O2 Delivery Room Air Intake & Output (last 24hrs) 06/01/25 06/01/25 06/02/25 15:00 23:00 07:00 Output Total 350 ml Balance -350 ml LABS: Laboratory: Test 06/02/25 17:09 06/02/25 05:04 Range/Units Vancomycin Level Trough 15.4 10.0-20.0 UG/ML White Blood Count 7.0 4.8-10.8 K/uL Red Blood Count 4.28 4.00-5.50 MIL/uL Hemoglobin 13.0 12.0-16.0 g/dL Hematocrit 39.2 36-48 % Mean Corpuscular Volume 91.6 79-99 fL Mean Corpuscular Hemoglobin 30.4 27.0-33.0 pg Mean Corpuscular Hemoglobin Concent 33.2 32.0-36.0 g/dL Red Cell Distribution Width 16.4 H 11.0-15.5 % Platelet Count 192 130-400 K/uL Mean Platelet Volume 10.1 7.5-10.5 fL Nucleated Red Blood Cells 0.0 0.0-0.19 % Sodium Level 141 136-145 mmol/L Potassium Level 3.6 3.5-5.1 mmol/L Chloride Level 106 101-111 mmol/L Carbon Dioxide Level 28 21-32 mmol/L Blood Urea Nitrogen 23 H 7-18 mg/dL Creatinine 0.9 0.5-1.0 mg/dL Glomerular Filtration Rate Calc 65 >90 mL/min Random Glucose 100 70-105 mg/dL Total Calcium 8.1 L 8.5-10.1 mg/dL B-Type Natriuretic Peptide 445 H 0-100 pg/mL LDL Cholesterol 49 0-99 mg/dL ASSESSMENT: Bilateral lower extremity cellulitis. Failed outpatient oral antibiotic therapy. Bilateral lower extremity edema. Peripheral artery disease. AFib, on chronic anticoagulation. PLAN: Continue vancomycin per pharmacy protocol. Continue cefepime. Continue pain management. Continue GI prophylaxis. We will re-evaluate tomorrow. This case was reviewed and discussed with my supervising physician Dr. Funes and the above assessment and plan was formulated and agreed upon. ATTESTATION BY PHYSICIAN I have seen and examined the patient. I reviewed the documentation, medical decision making, and treatment plan as noted by the mid-level provider above. I agree with the findings and plan of care. ROXY FUNES MD, MIRTA L [facility] Jun 02, 2025 19:51
[2025-06-02 20:00] VITALS: BP 133/64; PULSE 74; RESP 18; TEMP 98.6; O2SAT 100
[2025-06-03] VITALS (7 sets, daily range): BP systolic 130–161; BP diastolic 56–86; PULSE 69–83; RESP 16–20; TEMP 97.7–98.9; O2SAT 97–98
[2025-06-03 04:55] LABS: NUCLEATED RED BLOOD CELLS 0.0 % (0.0-0.19); PLATELET COUNT (AUTO) 176.0 K/uL (130-400); RED BLOOD CELL COUNT(AUTO) 4.21 MIL/uL (4.00-5.50); RED CELL DISTRIBUTION WIDTH 16.6 % (11.0-15.5); WHITE BLOOD COUNT (AUTO) 6.3 K/uL (4.8-10.8)
[2025-06-03 05:10] LABS: CREATININE 1.0 mg/dL (0.5-1.0); GLOMERULAR FILTR. RATE CALC 57.0 mL/min (>90); GLUCOSE,RANDOM 115.0 mg/dL (70-105); SODIUM SERUM 140.0 mmol/L (136-145); UREA NITROGEN, BLOOD 24.0 mg/dL (7-18)
--- NOTE | 2025-06-03 10:53 | PN ---
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 Symptoms have been ongoing for the past one week. , patient has noticed that her legs have been significantly swollen extending into the thighs. She has been having PND, orthopnea and shortness of breadth minimal activity. She is unable to ambulate due to significant lower extremity swelling. She does have history of chronic lower extremity edema which is usually minimal and she has been maintained on outpatient treatment with Lasix 20 mg daily. Patient denies any falls. She denies any focal weakness of upper or lower extremities. She has been maintained on anticoagulation with Eliquis chronically for management of atrial fibrillation. She also reports taking metoprolol tartrate 12.5 mg b.i.d. She does report having some chronic wound involving the right lower extremity which is healing well. On presentation to the hospital, patient was noted to be afebrile with T-max of 98.6 F, heart rate of 75, blood pressure 166/89. Labs on presentation showed WBC count of 7500, hemoglobin 14.6, platelet count of 204 ,000. BMP showed sodium of 139, potassium 4.7, chloride of 106, creatinine of 0.9, BNP of 733. Patient will be admitted for further management of decompensated heart failure exacerbation with significant volume overload. Patient with bilateral lower extremity venous stasis dermatitis with venous insufficiency with findings of lower extremity cellulitis. Patient will receive IV diuretics, we will be started on broad-spe ctrum antibiotics. Consultation with Cardiology Infectious Disease will be requested. We will see how patient progresses in the next 48-72 hours. 05/31/2025: Patient was seen and evaluated this morning, no family at bedside. He is awake, alert, oriented x3, saturating 98% with room air. Patient said that her bilateral lower extremity swelling has been increasing significantly over past1 week, patient has red, dry, severe pain in bilateral lower extremities. Morning labs revealed potassium 2.3, sodium 143, BUN 20, creatinine 1, white count 7.1, protein creatinine ratio 1.04. Chest x-ray showed pulmonary venous congestion with elevated right hemidiaphragm. Venous Doppler negative for DVT. Renal ultrasound unremarkable. Pending 2D echo, CT bilateral lower extremities. Patient currently on IV Lasix 40 mg b.i.d., metoprolol 12.5 mg b.i.d., [id number] mg daily, Eliquis5 mg b.i.d., IV vanco Q 24, cefepime2 g Q 24. Cardiology, Infectious Disease on board for further evaluation. 06/01/2025: Patient was seen and evaluated this morning, no family at bedside. She is awake, alert, oriented x3, saturating 98% with room air. Patient says that she is feeling lot better, her lower extremity swelling has been improved, complains of dry and itchy lower extremities. Morning labs revealed sodium 140, potassium 3.1, BNP 554, negative fluid balance of 1210. 2D echocardiogram showed LVEF> 55%, stage III diastolic dysfunction. Mild aortic stenosis and regurgitation, severe tricuspid valve regurgitation. CT bilateral lower extremity showed cellulitis with diffuse skin thickening and cobblestoning of subcutaneous fat; no CT evidence of drainable abscess or necrotizing fascitis. Advanced calcific atherosclerosis in bilateral lower extremity arteries. Continue IV Lasix 40 mg b.i.d., metoprolol 12.5 mg b.i.d., [id number] mg daily, Eliquis5 mg b.i.d., IV vanco Q 24, cefepime2 g Q 24 and we will replace potassium per protocol. Cardiology, Infectious Disease on board. 06/02/2025: Patient was seen and evaluated this morning, family at bedside. She is awake, alert, oriented x3, saturating 96% with room air. Patient says that she is doing good, her lower extremity swelling has been improving, denies any new or worsening symptoms. Morning labs revealed sodium 141, potassium 3.6, BNP 445, BUN 23 , creatinine 0.9. Arterial ultrasound of bilateral lower extremities mild arteriosclerosis without hemodynamically significant stenosis. IV Lasix has been transition to oral Lasix 40 mg twice daily, Neurontin 100 mg t.i.d. has been started for pain, continue metoprolol 12.5 mg b.i.d., [id number] mg daily, Eliquis5 mg b.i.d., IV vanco Q 24, cefepime2 g Q 24. Cardiology, Infectious Disease on board. 06/03/2025: Patient was seen and evaluated this morning, no family at bedside. She is awake, alert, oriented x3, looks hemodynamically stable. Patient says that she is doing lot better, denies any new or worsening symptoms. Morning labs revealed potassium 3.2, magnesium 1.8, BNP 329. continue Lasix, Neurontin, metoprolol 12.5 mg b.i.d., [id number] mg daily, Eliquis5 mg b.i.d., IV vanco Q 24, cefepime2 g Q 24. We will Replace potassium, magnesium per protocol. We will discharge the patient after getting Infectious Disease recommendations. REVIEW OF SYSTEMS CONSTITUTIONAL: Denies fevers, chills, or night sweats. No unintentional weight loss reported. NEUROLOGICAL: Denies headache, amaurosis fugax, motor weakness, sensory deficit, vertigo/spinning sensation, gait abnormalities, or tremors. ENT: No hearing loss, otalgia, otorrhea, rhinitis, rhinorrhea, hoarseness, or so re throat. CARDIOVASCULAR: Shortness of breadth with minimal ambulation, PND, orthopnea, progressive lower extremity edema PULMONARY: Denies any shortness of breath, cough, phlegm/sputum, hemoptysis, pleuritic chest pain. SLEEP: Denies morning headaches, daytime somnolence or napping. Denies difficulty falling asleep, staying asleep, waking from sleep. Denies knowledge of snoring. GASTROINTESTINAL: Denies any type of dysphagia to either liquids or solids. Denies nausea, vomiting, pyrosis, early satiety, abdominal pain, diarrhea, constipation, or changes in stool consistency or caliber. Denies coffee-ground emesis, hematemesis, hematochezia, or melanotic stools. GENITOURINARY: Denies frequency, urgency, nocturia, hematuria or incontinence (Storage/Irritative symptoms.) Low urinary stream, straining to void, urinary intermittency or hesitancy, splitting of the voiding stream, terminal dribbling. ENDOCRINOLOGIC: Denies polyuria, polydipsia, polyphagia or heat/cold intolerances. HEMATOLOGIC: Denies thrombophilia/previous clots, or coagulopathy/bleeding disorders. ONCOLOGIC: Denies personal history of malignancy. DERMATOLOGIC: Significant redness, warmth involving the bilateral lower extremities PSYCHIATRIC: Denies any suicidal or homicidal ideation. Denies hallucinations. PHYSICAL EXAM GENERAL APPEARANCE: The patient is awake, alert, and oriented, in no acute cardiopulmonary distress. NEUROLOGICAL: Cranial nerves II-XII grossly intact. Motor is 5/5 in bilateral upper and lower extremities proximal to distal. No sensory deficits. HEENT: Face is symmetric. Pupils are equal and reactive. Extraocular movements are intact. NECK: Supple. No JVD. No thyromegaly. No submental, submandibular, pre- /postauricular, occipital or supraclavicular lymphadenopathy. CHEST: Normal chest expansion. No Telemetry. LUNGS: Crackles noted of bilateral lower lung bases CARDIOVASCULAR: Regular. S1 and S2 normal. No appreciable rubs, murmurs or gallops. ABDOMEN: Soft, nontender, and nondistended. There is no rebound, voluntary guarding, or rigidity. : Deferred. No Schmitz. EXTREMITIES: 3+ pitting edema noted at bilateral lower extremities with edema extending into the thighs with significant erythema noted SKIN: As noted above Vital Signs (last 8hr) Date Time Temp Pulse Resp B/P (MAP) Pulse Ox O2 Delivery O2 Flow Rate FiO2 06/03/25 08:00 98.2 83 16 161/86 97 Room Air 21 06/03/25 04:00 99.0 69 18 158/74 99 Room Air LABS: Laboratory: Test 06/03/25 04:43 06/02/25 17:09 06/02/25 05:04 Range/Units White Blood Count 6.3 4.8-10.8 K/uL Red Blood Count 4.21 4.00-5.50 MIL/uL Hemoglobin 12.7 12.0-16.0 g/dL Hematocrit 39.5 36-48 % Mean Corpuscular Volume 93.8 79-99 fL Mean Corpuscular Hemoglobin 30.2 27.0-33.0 pg Mean Corpuscular Hemoglobin Concent 32.2 32.0-36.0 g/dL Red Cell Distribution Width 16.6 H 11.0-15.5 % Platelet Count 176 130-400 K/uL Mean Platelet Volume 9.8 7.5-10.5 fL Nucleated Red Blood Cells 0.0 0.0-0.19 % Sodium Level 140 136-145 mmol/L Potassium Level 3.2 L 3.5-5.1 mmol/L Chloride Level 106 101-111 mmol/L Carbon Dioxide Level 28 21-32 mmol/L Blood Urea Nitrogen 24 H 7-18 mg/dL Creatinine 1.0 0.5-1.0 mg/dL Glomerular Filtration Rate Calc 57 >90 mL/min Random Glucose 115 H 70-105 mg/dL Total Calcium 8.0 L 8.5-10.1 mg/dL Magnesium Level 1.80 1.80-2.40 mg/dL B-Type Natriuretic Peptide 329 H 0-100 pg/mL Vancomycin Level Trough 15.4 10.0-20.0 UG/ML LDL Cholesterol 49 0-99 mg/dL Current Medications Medications (Trade) Dose Ordered Sig/Fatuma Route PRN Reason Start Time Stop Time Status Last Admin Dose Admin Acetaminophen (TYLenol 325MG TAB) 650 mg Q6H PRN PO MILD PAIN (1-3) 05/30/25 16:00 06/29/25 15:59 Apixaban (EliquIS) 5 mg BID PO 05/30/25 21:00 06/29/25 20:59 06/03/25 10:23 5 MG Cefepime HCl (MAXipime 2 gm vial) 2 gm Q24H IVPB 05/30/25 16:30 06/09/25 16:29 06/02/25 16:17 2 GM Furosemide (LASix 40MG TAB) 40 mg BID@09,17 PO 06/02/25 17:00 07/02/25 16:59 06/03/25 10:23 40 MG Furosemide (LASix 40MG VIAL) 40 mg BID IV 05/30/25 21:00 06/02/25 09:42 DC 06/02/25 07:59 40 MG Furosemide (LASix 40MG VIAL) 40 mg Q8H IV 05/30/25 14:30 05/30/25 15:56 DC 05/30/25 15:21 40 MG Gabapentin (NEURontin 100 mg CAP) 100 mg TID PO 06/02/25 15:30 07/02/25 15:29 06/03/25 10:23 100 MG Labetalol HCl (TRANdate 20MG SYG) 10 mg Q6H PRN IV sor SBP> 170 05/30/25 16:00 06/29/25 15:59 Losartan Potassium (CozAAR 25MG TAB) 25 mg DAILY PO 05/31/25 09:00 06/30/25 08:59 06/03/25 10:23 25 MG Magnesium Sulfate 50 ml @ 0 mls/hr PROTOCOL IV 05/30/25 18:30 06/29/25 18:29 05/30/25 20:14 49 MLS/HR Metoprolol Tartrate (loprESSOR) 12.5 mg BID PO 05/30/25 21:00 06/29/25 20:59 06/03/25 10:23 12.5 MG Ondansetron HCl (zoFRAN 4MG INJ) 4 mg Q6H PRN IVP NAUSEA/VOMITING 05/30/25 16:00 06/29/25 15:59 Pantoprazole Sodium (PROTonix 40MG TAB) 40 mg DAILY PO 05/31/25 09:00 06/10/25 08:59 06/03/25 10:23 40 MG Pharmacy Profile Note (Pharmacy Communication) 1 each ONCE MISC 05/30/25 16:00 05/30/25 16:26 DC Piperacillin Sod/ Tazobactam Sod (Zosyn 3.375gm+NS 50ml) 3.375 gm Q8H IV 05/30/25 14:30 05/30/25 16:06 DC 05/30/25 15:21 3.375 GM Potassium Chloride 100 ml @ 100 mls/hr AD PRN IV POTASSIUM PROTOCOL 05/30/25 18:30 06/29/25 18:29 05/31/25 06:46 100 MLS/HR Potassium Chloride (K-Dur/Klor-Con 20meq) 20 meq AD PRN PO POTASSIUM PROTOCOL 05/30/25 18:30 06/29/25 18:29 06/03/25 10:25 20 MEQ Potassium Chloride (KCl 10% Elixir 20meq/15ml) 20 meq AD PRN PO POTASSIUM PROTOCOL 05/30/25 18:30 06/29/25 18:29 06/02/25 06:02 20 MEQ Vancomycin HCl 250 ml @ 125 mls/hr Q24H IV 05/31/25 16:30 05/31/25 17:35 DC Vancomycin HCl 250 ml @ 125 mls/hr Q24H IV 05/31/25 18:00 06/10/25 17:59 06/02/25 23:58 125 MLS/HR Vancomycin HCl (Vancomycin Protocol) 1 each AD IV 06/02/25 18:00 06/16/25 17:59 DIAGNOSTICS / RADIOLOGY: [ ] ASSESSMENT: Decompensated heart failure exacerbation with history of diastolic dysfunction, POA History of atrial fibrillation on chronic Eliquis, POA History of aortic insufficiency and aortic stenosis, POA Bilateral lower extremity cellulitis, POA Significant volume overload, POA History of hypertension, POA History of hyperlipidemia, POA History of healing wound in one two the right lower extremity, POA History of bilateral lower extremity venous stasis dermatitis with history of venous insufficiency, POA History of 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 Today BNP 329 Patient on 1.5 L fluid restriction Cardiology on board. Bilateral lower extremity cellulitis, POA Patient has redness, pain and swelling of bilateral lower extremities Venous Doppler negative for DVT Continue IV vancomycin Q 24 Continue IV cefepime 2 g Q 24 Neurontin [address] for pain CT bilateral lower extremity showed cellulitis with diffuse skin thickening and cobblestoning of subcutaneous fat; no CT evidence of drainable abscess or necrotizing fascitis. Advanced calcific atherosclerosis in bilateral lower extremity arteries. Wound care, infectious disease on board for further evaluation History of atrial fibrillation on chronic Eliquis, POA Patient has history of persistent AFib on chronic Eliquis therapy Continue Eliquis5 mg b.i.d. daily Continue metoprolol 12.5 mg b.i.d. Cardiology on board History of hypertension, POA On presentation blood pressure was 166/89 Continue metoprolol 12.5 mg b.i.d. Patient was started on [id number] mg daily by Cardiology GI prophylaxis with Protonix DVT prophylaxis with Eliquis ATTESTATION BY PHYSICIAN I have seen and examined the patient. I reviewed the documentation, medical decision making, and treatment plan as noted by the resident physician above. I agree with the findings and plan of care. DANIEL US MD, ADIL SHAH QUADRI MD Jun 03, 2025 10:53
--- NOTE | 2025-06-03 20:44 | PN ---
INFECTIOUS DISEASE PROGRESS NOTE Date of Service: Jun 03, 2025 SUBJECTIVE: Patient was seen at bedside in room 318. Patient's lower extremity edema and erythema has improved. Patient is still reporting some tenderness to the lower extremities. Uses the walker to ambulate. Remains afebrile, temperature is 97.9. No fever , temperature is 97.9. We will continue on vancomycin and cefepime for one more day and plan to discharge tomorrow if stable. PHYSICAL EXAM EYES: Anicteric. Pupils equal and reactive. HENT: No oral thrush seen, moist Oral mucosa NECK: Supple, no JVD or thyromegaly. LUNGS: Good air entry. No rales, no rhonchi. CARDIOVASCULAR: S1, S2 regular. No murmur heard. ABDOMEN: Soft, non tender, bowel sounds present. CENTRAL NERVOUS SYSTEM: Awake, alert, oriented x 3. SKIN: No rashes, no swelling. LYMPHATICS: No peripheral lymphadenopathy MUSCULOSKELETAL: No joint swelling, erythema or tenderness. EXTREMITIES: No cyanosis or clubbing. Bilateral lower extremities edema and erythema, improved. BACK: No deformity, no pressure ulcer. GENITOURINARY: No dysuria or hematuria. Vital Sign (Last 12 Hours) 06/03/25 06/03/25 12:00 16:00 Temp 97.9 97.7 Pulse 73 72 Resp 16 16 B/P (MAP) 132/72 147/78 Pulse Ox 98 97 O2 Delivery Room Air Room Air FiO2 21 21 Intake & Output (last 24hrs) 06/02/25 06/02/25 06/03/25 15:00 23:00 07:00 Intake Total 250.0 ml Balance 250.0 ml LABS: Laboratory: Test 06/03/25 04:43 06/02/25 17:09 06/02/25 05:04 Range/Units White Blood Count 6.3 4.8-10.8 K/uL Red Blood Count 4.21 4.00-5.50 MIL/uL Hemoglobin 12.7 12.0-16.0 g/dL Hematocrit 39.5 36-48 % Mean Corpuscular Volume 93.8 79-99 fL Mean Corpuscular Hemoglobin 30.2 27.0-33.0 pg Mean Corpuscular Hemoglobin Concent 32.2 32.0-36.0 g/dL Red Cell Distribution Width 16.6 H 11.0-15.5 % Platelet Count 176 130-400 K/uL Mean Platelet Volume 9.8 7.5-10.5 fL Nucleated Red Blood Cells 0.0 0.0-0.19 % Sodium Level 140 136-145 mmol/L Potassium Level 3.2 L 3.5-5.1 mmol/L Chloride Level 106 101-111 mmol/L Carbon Dioxide Level 28 21-32 mmol/L Blood Urea Nitrogen 24 H 7-18 mg/dL Creatinine 1.0 0.5-1.0 mg/dL Glomerular Filtration Rate Calc 57 >90 mL/min Random Glucose 115 H 70-105 mg/dL Total Calcium 8.0 L 8.5-10.1 mg/dL Magnesium Level 1.80 1.80-2.40 mg/dL B-Type Natriuretic Peptide 329 H 0-100 pg/mL Vancomycin Level Trough 15.4 10.0-20.0 UG/ML LDL Cholesterol 49 0-99 mg/dL ASSESSMENT: Bilateral lower extremity cellulitis. Failed outpatient oral antibiotic therapy. Bilateral lower extremity edema. Peripheral artery disease. AFib, on chronic anticoagulation. PLAN: Continue vancomycin per pharmacy protocol. Continue cefepime. Continue pain management. Continue GI prophylaxis. Plan to discharge tomorrow if stable. This case was reviewed and discussed with my supervising physician Dr. Funes and the above assessment and plan was formulated and agreed upon. ATTESTATION BY PHYSICIAN I have seen and examined the patient. I reviewed the documentation, medical decision making, and treatment plan as noted by the mid-level provider above. I agree with the findings and plan of care. ROXY FUNES MD, MIRTA L [facility] Jun 03, 2025 20:44
[2025-06-04] VITALS: BP 134/58; PULSE 78; RESP 20; TEMP 97.5
[2025-06-04 04:00] VITALS: BP 142/81; PULSE 67; RESP 20; TEMP 97.4
[2025-06-04 04:57] LABS: NUCLEATED RED BLOOD CELLS 0.0 % (0.0-0.19); PLATELET COUNT (AUTO) 185.0 K/uL (130-400); RED BLOOD CELL COUNT(AUTO) 4.15 MIL/uL (4.00-5.50); RED CELL DISTRIBUTION WIDTH 16.2 % (11.0-15.5); WHITE BLOOD COUNT (AUTO) 5.8 K/uL (4.8-10.8)
[2025-06-04 05:13] LABS: CREATININE 1.0 mg/dL (0.5-1.0); GLOMERULAR FILTR. RATE CALC 57.0 mL/min (>90); GLUCOSE,RANDOM 103.0 mg/dL (70-105); SODIUM SERUM 140.0 mmol/L (136-145); UREA NITROGEN, BLOOD 25.0 mg/dL (7-18)
[2025-06-04 08:04] VITALS: BP 129/78; PULSE 70; RESP 18; TEMP 98.3
--- NOTE | 2025-06-04 10:24 | PN ---
INFECTIOUS DISEASE PROGRESS NOTE Date of Service: Jun 04, 2025 SUBJECTIVE: Patient was seen at bedside in room 318. Patient has remained afebrile. The lower extremity cellulitis and edema has improved. Currently continues on vancomycin and cefepime. Patient can be discharged on cephalexin 500 mg t.i.d. and doxycycline 100 mg b.i.d. x 10 days when ready to discharge. PHYSICAL EXAM EYES: Anicteric. Pupils equal and reactive. HENT: No oral thrush seen, moist Oral mucosa NECK: Supple, no JVD or thyromegaly. LUNGS: Good air entry. No rales, no rhonchi. CARDIOVASCULAR: S1, S2 regular. No murmur heard. ABDOMEN: Soft, non tender, bowel sounds present. CENTRAL NERVOUS SYSTEM: Awake, alert, oriented x 3. SKIN: No rashes, no swelling. LYMPHATICS: No peripheral lymphadenopathy MUSCULOSKELETAL: No joint swelling, erythema or tenderness. EXTREMITIES: No cyanosis or clubbing. Bilateral lower extremities edema and erythema, improved. BACK: No deformity, no pressure ulcer. GENITOURINARY: No dysuria or hematuria. Vital Sign (Last 12 Hours) 06/04/25 06/04/25 06/04/25 00:00 04:00 08:04 Temp 97.5 97.3 98.2 Pulse 78 67 70 Resp 20 20 18 B/P (MAP) 134/58 142/81 129/78 Pulse Ox 94 95 99 O2 Delivery Room Air Room Air Room Air Intake & Output (last 24hrs) 06/03/25 06/03/25 06/04/25 15:00 23:00 07:00 Intake Total 2000 ml Balance 2000 ml LABS: Laboratory: Test 06/04/25 04:39 06/02/25 17:09 Range/Units White Blood Count 5.8 4.8-10.8 K/uL Red Blood Count 4.15 4.00-5.50 MIL/uL Hemoglobin 12.7 12.0-16.0 g/dL Hematocrit 38.6 36-48 % Mean Corpuscular Volume 93.0 79-99 fL Mean Corpuscular Hemoglobin 30.6 27.0-33.0 pg Mean Corpuscular Hemoglobin Concent 32.9 32.0-36.0 g/dL Red Cell Distribution Width 16.2 H 11.0-15.5 % Platelet Count 185 130-400 K/uL Mean Platelet Volume 10.4 7.5-10.5 fL Nucleated Red Blood Cells 0.0 0.0-0.19 % Sodium Level 140 136-145 mmol/L Potassium Level 3.5 3.5-5.1 mmol/L Chloride Level 107 101-111 mmol/L Carbon Dioxide Level 29 21-32 mmol/L Blood Urea Nitrogen 25 H 7-18 mg/dL Creatinine 1.0 0.5-1.0 mg/dL Glomerular Filtration Rate Calc 57 >90 mL/min Random Glucose 103 70-105 mg/dL Total Calcium 8.0 L 8.5-10.1 mg/dL Magnesium Level 1.90 1.80-2.40 mg/dL B-Type Natriuretic Peptide 239 H 0-100 pg/mL Vancomycin Level Trough 15.4 10.0-20.0 UG/ML ASSESSMENT: Bilateral lower extremity cellulitis, improved. Failed outpatient oral antibiotic therapy. Bilateral lower extremity edema, improved. Peripheral artery disease. AFib, on chronic anticoagulation. PLAN: Continue vancomycin per pharmacy protocol. Continue cefepime. Patient can be discharged on cephalexin 500 mg t.i.d. and doxycycline 100 mg b.i.d. x 10 days when ready to discharge. This case was reviewed and discussed with my supervising physician Dr. Funes and the above assessment and plan was formulated and agreed upon. ATTESTATION BY PHYSICIAN I have seen and examined the patient. I reviewed the documentation, medical decision making, and treatment plan as noted by the mid-level provider above. I agree with the findings and plan of care. ROXY FUNES MD, MIRTA L [facility] Jun 04, 2025 10:24
--- NOTE | 2025-06-04 11:27 | DS ---
Discharge Summary Hospital Course Summary: This is an 80-year-old female with a past medical history significant for aortic insufficiency, persistent atrial fibrillation on chronic anticoagulation with Eliquis, peripheral arterial disease, MayThurner syndrome, and chronic lower extremity edema who presented to the emergency department with one week of progressively worsening bilateral lower extremity swelling extending into the thighs, associated erythema, pain, and shortness of breath. She also reported orthopnea, paroxysmal nocturnal dyspnea, and dyspnea with minimal exertion, resulting in inability to ambulate. On presentation, she was afebrile and hemodynamically stable. Initial laboratory evaluation revealed normal white blood cell count, stable hemoglobin and renal function, with an elevated BNP of 733, consistent with volume overload. Chest X-ray demonstrated pulmonary venous congestion. Given concern for acute decompensated heart failure with significant volume overload and bilateral lower extremity cellulitis, the patient was admitted for further management. During hospitalization, the patient was treated with IV diuretics, resulting in significant symptomatic improvement and a steady downtrend in BNP levels. She achieved net negative fluid balance with improvement in lower extremity edema and dyspnea. Electrolyte abnormalities, including hypokalemia and hypomagnesemia, were monitored closely and corrected per protocol. A 2D echocardiogram showed preserved left ventricular ejection fraction (>55%) with stage III diastolic dysfunction, mild aortic stenosis and regurgitation, and severe tricuspid regurgitation. CT imaging of the bilateral lower extremities confirmed cellulitis without abscess or necrotizing infection, and arterial ultrasound showed mild arteriosclerosis without hemodynamically significant stenosis. The patient was treated empirically with IV vancomycin and cefepime with Infectious Disease consultation. Cardiology was also consulted and followed the patient throughout the admission. Her clinical status continued to improve, with resolution of leukocytosis, improved pain and swelling, and stable renal function. At the time of discharge, the patient is hemodynamically stable, saturating well on room air, and reports significant improvement in symptoms. Her WBC count is 5.8 and BNP has continued to trend down to 239. Infectious Disease recommended transition to oral antibiotics with cephalexin 500 mg three times daily and doxycycline 100 mg twice daily for a total of 10 days. Cardiology cleared the patient for discharge and recommended continuation of her home medications, including Lasix 40 mg by mouth twice daily, metoprolol (Lopressor), and Eliquis. The patient is stable for discharge home with close outpatient follow-up with Cardiology and Infectious Disease, and instructions to monitor for recurrence of swelling, shortness of breath, fever, or worsening lower extremity symptoms. Marketing Assistant [employer] Division(s): CONSULTATION REPORT Name: ALEJANDRO ESTRELLA Acct: [id number] MR: [id number] : 1945 Admit Date: 05/30/25 JOVANNI ARMSTRONG NEWS OPERATIONS MANAGER [facility] [address] [place] [address] [facility] Cardiology Consultation Note Cardiology consult dictated for Nikki Aguilar MD Date of service 05/30/2025 Primary pie filler: Dr. Nikki Aguilar Chief complaint: Lower extremity edema Reason for consult: Congestive heart failure History of present illness: 80 year old female presented to ER due to one week of lower extremity edema extending to thigh level. She has been experiencing shortness of breath and orthopnea like symptoms. Cardiology consult was requested for evaluation of possible CHF. 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 BNP on arrival was 733 and troponin 56.9 and normal renal function. Chest x-ray demonstrated cardiomegaly with pulmonary vascular congestion, venous Doppler with no evidence of DVT. She denies chest pain, no palpitations or syncope. Admits to not taking furosemide home dose regularly. She is pending echocardiogram as out patient. Review of systems: 14 point review of systems performed pertinent positives and negatives discussed in HPI Allergies: The patient is allergic to metronidazole, sulfamethoxazole and trimethoprim Past medical history: Positive for mild aortic stenosis, moderate 2+ aortic insufficiency, hypertension, persistent atrial fibrillation on chronic anticoagulation, platelet dysfunction, chronic venous insufficiency, mild peripheral arterial disease, May-Thurner syndrome. Negative for CVA TIA no PE no DVT. Past surgical history: Positive for left common and external iliac vein stent placement March 2022, bladder surgery, hysterectomy Family history: Noncontributory Social history: Patient denies tobacco alcohol or illicit drug use Medications: Vancomycin IV, metoprolol tartrate 12.5 mg p.o. b.i.d., Eliquis 5 mg p.o. b.i.d., furosemide 40 mg IV b.i.d. Review of blood work: CBC with white blood cells of 7.5, hemoglobin 14.6, hematocrit of 44.5, platelets of 204. Metabolic panel with sodium of 139, potassium 4.7, BUN of 18, creatinine of 0.9 and a GFR of 65. Troponin high sensitivity 56.9 BNP 733. 12 lead EKg : Atrial fibrillation with controlled rate. No ST-T wave abnormalities. Physical exam BP 163/70 with heart rate 91bpm and irregular, 1/6 systolic murmur over aortic area. BBS with scattered rales. No jvd, no carotid bruit noted. Lower extremities with +3 pitting edema, hot to touch and redness noted. She is alert, awake and oriented. All others WNL. Assessment: Fluid overload (BNP 733) Cellulitis bilateral legs History of May Thurner syndrome with left common and external iliac vein stent placement March 2022 Mild aortic stenosis, moderate 2+ aortic insufficiency Hypertension Persistent atrial fibrillation on chronic AC Plan: 80 year old female presented for evaluation of edema, dyspnea, orthopnea like symptoms. BNP on admission 733 and admits to not taking diuretic as prescribed. Primary team started IV Vancomycin for lower extremity cellulitis. She can be placed on fluid restriction, daily weights, strict I &O, BMP daily x3. Primary team ordered echocardiogram and we will review once available. The patient has significant edema of the lower extremities and has been noncompliant with her diuretic at home. She has chronic venous insufficiency and may Thurner syndrome. We will diurese with furosemide. A 2D echo has been worried to assess for a cardiac component to her fluid overload. We will review results when available. ATTESTATION BY PHYSICIAN I have seen and examined the patient. I reviewed the documentation, medical decision making, and treatment plan as noted by the mid-level provider above. I agree with the findings and plan of care. NIKKI AGUILAR MD, MARTINA FNP May 30, 2025 16:37 NIKKI AGUILAR MD May 30, 2025 18:50 Electronically Signed by: JOVANNI MELARA07/31/24 1700 Electronically Co-Signed by: NIKKI AGUILAR MD05/30/25 4248 CONSULTATION REPORT Name: ALEJANDRO ESTRELLA Acct: [id number] MR: [id number] : 1945 Admit Date: 05/30/25 MAGDALENE JJ, STEEL DETAILER [place] [address] [place] [id number] INFECTIOUS DISEASE CONSULTATION NOTE Date of Service: May 31, 2025 Reason for Consultation: Lower Extremity cellulitis. Requesting Physician: Dr. Lee HISTORY OF PRESENT ILLNESS: This is an 80-year-old female patient with past medical history of peripheral artery disease, May-Thurner syndrome and atrial fibrillation who presented to the emergency room for chief complaint of lower extremity redness and edema, accompanied by severe pain causing inability to walk. Reported that she went to see her PCP and was prescribed Bactrim and metronidazole but did not see any im provement and decided to come to the emergency room for evaluation. Denying experiencing fever or chills. Has remained afebrile while in the hospital. Patient has been started on vancomycin and cefepime. Currently is pending a CT of lower extremities. Will continue on current IV antibiotics and continue to follow patient. REVIEW OF SYSTEMS CONSTITUTIONAL: Denies fever, chills, or fatigue. HEAD/FACE: No signs of trauma. EENT: Denies eye pain, blurred vision, double vision, or light sensitivity. RESPIRATORY: Denies shortness of breath, cough, wheezing CARDIOVASCULAR: Denies chest pain, palpitation, syncope GASTROINTESTINAL/ABDOMINAL: Denies abdominal pain, constipation, diarrhea, nausea or vomiting GENITOURINARY: Denies dysuria or hematuria. MUSCULOSKELETAL: Bilateral lower extremity edema and severe pain INTEGUMENTARY: Bilateral lower extremities erythema. NEUROLOGICAL/PSYCH: Denies anxiety, depression, heat or cold intolerance. PAST MEDICAL HISTORY: Peripheral artery disease. May-Thurner syndrome. Atrial fibrillation, on Eliquis. PAST SURGICAL HISTORY: Hysterectomy. Bladder lift. Neck surgery. PAST SOCIAL HISTORY: Denied current use of tobacco, alcohol or any other illicit drug. FAMILY HISTORY: Mother had hypertension and heart failure. Father had hypertension and diabetes mellitus. One sister had breast cancer and another sister had brain cancer. Coded Allergies: sulfamethoxazole (Unverified Allergy, Intermediate, REDNESS, 03/22/23) RASH trimethoprim (Unverified Allergy, Intermediate, REDNESS, 03/22/23) RASH metronidazole (Verified Allergy, Unknown, 09/18/22) PHYSICAL EXAM EYES: Anicteric. Pupils equal and reactive. HENT: No oral thrush seen, moist Oral mucosa NECK: Supple, no JVD or thyromegaly. LUNGS: Good air entry. No rales, no rhonchi. CARDIOVASCULAR: S1, S2 regular. No murmur heard. ABDOMEN: Soft, non tender, bowel sounds present. CENTRAL NERVOUS SYSTEM: Awake, alert, oriented x 3. SKIN: No rashes, no swelling. LYMPHATICS: No peripheral lymphadenopathy MUSCULOSKELETAL: No joint swelling, erythema or tenderness. EXTREMITIES: No cyanosis or clubbing. Bilateral lower extremities edema and erythema. BACK: No deformity, no pressure ulcer. GENITOURINARY: No dysuria or hematuria. Vital Sign (Last 24 Hours) 05/31/25 14:56 Temp 97.9 Pulse 67 Resp 20 B/P (MAP) 140/61 Pulse Ox 97 O2 Delivery Room Air* O2 Flow Rate 0 FiO2 21 LABS: Laboratory: Test 05/31/25 08:49 05/31/25 05:52 05/31/25 05:39 05/30/25 16:26 Range/Units Sodium Level 141 136-145 mmol/L Potassium Level 3.8 3.5-5.1 mmol/L Chloride Level 105 101-111 mmol/L Carbon Dioxide Level 29 21-32 mmol/L Blood Urea Nitrogen 18 7-18 mg/dL Creatinine 0.8 0.5-1.0 mg/dL Glomerular Filtration Rate Calc 74 >90 mL/min Random Glucose 104 70-105 mg/dL Total Calcium 8.4 L 8.5-10.1 mg/dL White Blood Count 7.1 4.8-10.8 K/uL Red Blood Count 4.63 4.00-5.50 MIL/uL Hemoglobin 14.0 12.0-16.0 g/dL Hematocrit 43.9 36-48 % Mean Corpuscular Volume 94.8 79-99 fL Mean Corpuscular Hemoglobin 30.2 27.0-33.0 pg Mean Corpuscular Hemoglobin Concent 31.9 L 32.0-36.0 g/dL Red Cell Distribution Width 16.9 H 11.0-15.5 % Platelet Count 184 130-400 K/uL Mean Platelet Volume 10.3 7.5-10.5 fL Immature Granulocyte % (Auto) 0.1 0-1 % Neutrophils (%) (Auto) 64.3 40.0-77.0 % Lymphocytes (%) (Auto) 19.5 L 21.0-51.0 % Monocytes (%) (Auto) 12.4 3.0-13.0 % Eosinophils (%) (Auto) 3.1 0.0-8.0 % Basophils (%) (Auto) 0.6 0.0-5.0 % Neutrophils # (Auto) 4.6 1.8-7.7 K/uL Lymphocytes # (Auto) 1.4 1.0-4.8 K/uL Monocytes # (Auto) 0.9 0.1-1.0 K/uL Eosinophils # (Auto) 0.22 0.00-0.70 K/uL Basophils # (Auto) 0.04 0.00-0.20 K/uL Absolute Immature Granulocyte (auto 0.01 0-1 K/uL Nucleated Red Blood Cells 0.0 0.0-0.19 % Magnesium Level 2.00 1.80-2.40 mg/dL C-Reactive Protein, Quantitative 5.70 H 0.5-3.0 mg/L Triglycerides Level 69 30-200 mg/dL Cholesterol Level 116 # <200 mg/dL LDL Cholesterol 58 0-99 mg/dL HDL Cholesterol 41 35-85 mg/dL Test 05/30/25 16:12 05/30/25 13:29 Range/Units Urine Color LIGHT-YELLOW YELLOW Urine Appearance CLEAR CLEAR Urine pH 7.5 5.0-8.0 Urine Specific [place] 1.008 1.001-1.031 Urine Protein NEGATIVE NEGATIVE mg/dL Urine Glucose (UA) NEGATIVE NEGATIVE mg/dL Urine Ketones NEGATIVE NEGATIVE mg/dL Urine Occult Blood NEGATIVE NEGATIVE Urine Nitrate NEGATIVE NEGATIVE Urine Bilirubin NEGATIVE NEGATIVE mg/dL Urine Urobilinogen 0.2 0.2-1.0 mg/dL Urine Leukocyte Esterase NEGATIVE NEGATIVE Teresa/uL Urine RBC 2-5 H 0-1 /HPF Urine WBC 2-5 H 0-1 /HPF Urine Squamous Epithelial Cells RARE 0-2 /HPF Urine Bacteria None None Seen /HPF Urine Random Creatinine 21.67 L 30-135 mg/dL Urine Random Total Protein 22.9 H 0-11.9 mg/dL Erythrocyte Sedimentation Rate 22 0-30 MM/HR Prothrombin Time 12.0 H 9.6-11.6 SEC Prothromb Time International Ratio 1.15 0.85-1.15 Activated Partial Thromboplast Time 30.1 26.3-35.5 SEC Hemoglobin A1c 5.8 4.0-6.0 % Estimated Average Glucose (eAG) 120 70-126 mg/dL Total Bilirubin 2.6 H 0.2-1.0 mg/dL Direct Bilirubin 0.3 0.0-0.3 mg/dL Aspartate Amino Transf (AST/SGOT) 57 H 10-37 U/L Alanine Aminotransferase (ALT/SGPT) 19 12-78 U/L Alkaline Phosphatase 190 H 50-136 U/L Lactate Dehydrogenase 497 H 81-234 U/L Total Creatine Kinase 63 # 21-232 U/L Troponin I High Sensitivity 56.9 *H 4-50 ng/L B-Type Natriuretic Peptide 733 H 0-100 pg/mL Total Protein 7.6 6.0-8.3 g/dL Albumin 3.0 L 3.5-5.0 g/dL Procalcitonin < 0.05 L 0.05-0.5 ng/mL Thyroid Stimulating Hormone (TSH) 2.55 # 0.36-3.74 uIU/mL ASSESSMENT: Bilateral lower extremity cellulitis. Failed outpatient oral antibiotic therapy. Bilateral lower extremity edema. Peripheral artery disease. Atrial fibrillation, on on chronic anticoagulation. PLAN: Continue vancomycin per pharmacy protocol. Continue cefepime. Continue pain management. Continue anticoagulation. Instructed to maintain lower extremities elevated. Currently pending a CT scan of the lower extremities. Thank you for allowing ID to participate in the care of this patient. This case was reviewed and discussed with my supervising physician Dr. Avila and the above assessment and plan was formulated and agreed upon. ATTESTATION BY PHYSICIAN I have seen and examined the patient. I reviewed the documentation, medical decision making, and treatment plan as noted by the mid-level provider above. I agree with the findings and plan of care. ROXY AVILA MD, MIRTA L FNP May 31, 2025 17:49 Electronically Signed by: MAGDALENE TAPIA NP06/03/25 0202 Electronically Co-Signed by: PROGRESS NOTES Name: ALEJANDRO ESTRELLA Acct: [id number] MR: [id number] : 1945 Admit Date: 05/30/25 MAGDALENE JJ, MISAEL [place] [address] [place] [id number] INFECTIOUS DISEASE PROGRESS NOTE Date of Service: Jun 04, 2025 SUBJECTIVE: Patient was seen at bedside in room 318. Patient has remained afebrile. Currently continues on vancomycin and cefepime. Patient can be discharged on cephalexin 500 mg t.i.d. and doxycycline 100 mg b.i.d. x 10 days when ready to discharge. PHYSICAL EXAM EYES: Anicteric. Pupils equal and reactive. HENT: No oral thrush seen, moist Oral mucosa NECK: Supple, no JVD or thyromegaly. LUNGS: Good air entry. No rales, no rhonchi. CARDIOVASCULAR: S1, S2 regular. No murmur heard. ABDOMEN: Soft, non tender, bowel sounds present. CENTRAL NERVOUS SYSTEM: Awake, alert, oriented x 3. SKIN: No rashes, no swelling. LYMPHATICS: No peripheral lymphadenopathy MUSCULOSKELETAL: No joint swelling, erythema or tenderness. EXTREMITIES: No cyanosis or clubbing. Bilateral lower extremities edema and erythema, improved. BACK: No deformity, no pressure ulcer. GENITOURINARY: No dysuria or hematuria. Vital Sign (Last 12 Hours) 06/04/25 06/04/25 06/04/25 00:00 04:00 08:04 Temp 97.5 97.3 98.2 Pulse 78 67 70 Resp 20 20 18 B/P (MAP) 134/58 142/81 129/78 Pulse Ox 94 95 99 O2 Delivery Room Air Room Air Room Air Intake & Output (last 24hrs) 06/03/25 06/03/25 06/04/25 15:00 23:00 07:00 Intake Total 2000 ml Balance 2000 ml LABS: Laboratory: Test 06/04/25 04:39 06/02/25 17:09 Range/Units White Blood Count 5.8 4.8-10.8 K/uL Red Blood Count 4.15 4.00-5.50 MIL/uL Hemoglobin 12.7 12.0-16.0 g/dL Hematocrit 38.6 36-48 % Mean Corpuscular Volume 93.0 79-99 fL Mean Corpuscular Hemoglobin 30.6 27.0-33.0 pg Mean Corpuscular Hemoglobin Concent 32.9 32.0-36.0 g/dL Red Cell Distribution Width 16.2 H 11.0-15.5 % Platelet Count 185 130-400 K/uL Mean Platelet Volume 10.4 7.5-10.5 fL Nucleated Red Blood Cells 0.0 0.0-0.19 % Sodium Level 140 136-145 mmol/L Potassium Level 3.5 3.5-5.1 mmol/L Chloride Level 107 101-111 mmol/L Carbon Dioxide Level 29 21-32 mmol/L Blood Urea Nitrogen 25 H 7-18 mg/dL Creatinine 1.0 0.5-1.0 mg/dL Glomerular Filtration Rate Calc 57 >90 mL/min Random Glucose 103 70-105 mg/dL Total Calcium 8.0 L 8.5-10.1 mg/dL Magnesium Level 1.90 1.80-2.40 mg/dL B-Type Natriuretic Peptide 239 H 0-100 pg/mL Vancomycin Level Trough 15.4 10.0-20.0 UG/ML ASSESSMENT: Bilateral lower extremity cellulitis. Failed outpatient oral antibiotic therapy. Bilateral lower extremity edema. Peripheral artery disease. AFib, on chronic anticoagulation. PLAN: Continue vancomycin per pharmacy protocol. Continue cefepime. Patient can be discharged on cephalexin 500 mg t.i.d. and doxycycline 100 mg b.i.d. x 10 days when ready to discharge. This case was reviewed and discussed with my supervising physician Dr. Avila and the above assessment and plan was formulated and agreed upon. ATTESTATION BY PHYSICIAN I have seen and examined the patient. I reviewed the documentation, medical decision making, and treatment plan as noted by the mid-level provider above. I agree with the findings and plan of care. ROXY AVILA MD, MIRTA L [facility] Jun 04, 2025 10:24 Electronically Signed by: Electronically Co-Signed by: PROGRESS NOTES Name: ALEJANDRO ESTRELLA John Acct: [id number] MR: [id number] : 1945 Admit Date: 05/30/25 ZOË ZHANG [place] [address] [address] [facility] Cardiology Progress Note Date Patient Seen: Jun 02, 2025 Time of Visit: 09:14 PROBLEM LIST: [1. Bilateral lower extremity cellulitis 2. Chronic venous insufficiency and noncompliance with diuretic use 3. 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 Mild aortic stenosis moderate aortic insufficiency on prior echo 5. Hypertension 6. Persistent atrial fibrillation 7. Chronic anticoagulation 8. Echo this admission, EF greater than 55%, stage III diastolic dysfunction 9. Acute on chronic diastolic CHF, secondary to diuretic noncompliance ] [ Patient resting in bed at this time. Leg still hurts but they are much less swollen. She does admit to noncompliance with her diuretics; states she is on Lasix 20 mg daily at home. Denies chest discomfort or shortness of breath. No palpitations. -1250 cc fluid balance yesterday, -350 so far today. Bilateral iliac vein stents are patent per CT scans. Arterial Dopplers did not show any significant insufficiency. Labs notable for LDL of 48, BNP of 445. Physical exam noted for irregularly irregular but rate controlled rhythm. Advanced venous stasis changes bilaterally. Patient will be transitioned to Lasix 40 p.o. b.i.d.. She can be discharged with her home dose. She has been admonished about noncompliance. Continue Lopressor, Eliquis. Probable discharge tomorrow.] ZOË ZHANG PAC Jun 02, 2025 09:14 Electronically Signed by: ZOË ZHANG PAC06/02/25 1241 Electronically Co-Signed by: Procedure(s): [place] [address] [place] [address] IMAGING REPORT Signed PATIENT: ALEJANDRO ESTRELLA MR#: [id number] : 1945 SEX: F AGE: 80 LOCATION: ED ORDER 1314 STATUS: REG ER REPORT#: [id number] SERVICE 1312 REASON: cp ORDERING PHYSICIAN: SALBADOR FORDE DO PROCEDURE: CXR1VW - CHEST 1VW STUDY CR Chest, 1 view. CLINICAL HISTORY Chest pain. TECHNIQUE Single frontal radiograph of the chest. COMPARISON Chest radiograph 11/12/2024 05:30 EDT. FINDINGS LUNGS There is an elevated right hemidiaphragm with associated right basilar atelectasis. No new focal consolidation, mass, or acute pulmonary abnormality is identified. PLEURAL SPACES No pleural effusion or pneumothorax. MEDIASTINUM Cardiomegaly is present with prominent pulmonary vascular markings compatible with pulmonary vascular congestion. Overall cardiomediastinal contours are otherwise unchanged. BONES AND DEVICES No acute osseous abnormality. Partially visualized cervical spine fusion hardware is noted. IMPRESSION * Cardiomegaly with pulmonary vascular congestion and elevated right hemidiaphragm with right basilar atelectasis, all unchanged compared with 11/12/2024. * No new acute cardiopulmonary abnormality identified. /[place] DICTATED BY: JOSH ARANGO DO DATE: 05/30/251600 ELECTRONICALLY SIGNED BY: JOSH ARANGO DO DATE: 05/30/251600 [facility] [address] [place] [phone] IMAGING REPORT Signed PATIENT: ALEJANDRO ESTRELLA MR#: [id number] : 1945 SEX: F AGE: 80 LOCATION: EDHIP ORDER 32 STATUS: ADM IN REPORT#: [id number] SERVICE 32 REASON: swelling, r/o DVT ORDERING PHYSICIAN: SALBADOR FORDE DO PROCEDURE: VENOUS NIK - US VENOUS DOPPLER BILATERAL EXAM: US for Deep Venous Thrombosis, bilateral Lower Extremity. CLINICAL HISTORY: Leg Pain and Swelling TECHNIQUE: Real-time ultrasound scan of the veins of the bilateral lower extremity with color Doppler flow, spectral waveform analysis and compression. COMPARISON: Study dated 03/02. FINDINGS: DEEP VEINS: The common femoral, superficial femoral, and popliteal veins are echolucent and compressible. There is normal color Doppler flow throughout. The visualized calf veins appear patent. SOFT TISSUES: No popliteal fossa cyst or other abnormalities. IMPRESSION: 1. No evidence of deep venous thrombosis in the bilateral lower extremities. /[place] DICTATED BY: ANUEL PRADO MD DATE: 05/30/251653 ELECTRONICALLY SIGNED BY: ANUEL PRADO MD DATE: 05/30/251653 [facility] [address] [place] [id number] IMAGING REPORT Signed PATIENT: ALEJANDRO ESTRELLA MR#: [id number] : 1945 SEX: F AGE: 80 LOCATION: EDHIP ORDER 57 STATUS: ADM IN REPORT#: [id number] SERVICE 56 REASON: r/o any renal abnormalities, volume overload ORDERING PHYSICIAN: ARMINDA LEE MD PROCEDURE: RENAL - US RENAL SONOGRAM EXAM Renal ultrasound CLINICAL INDICATION R/O any renal abnormalities, volume overload (Hx). COMPARISON None. TECHNIQUE Grayscale ultrasound images of the kidneys and urinary bladder were obtained. RIGHT KIDNEY The right kidney measures approximately 10.1 x 3.8 x 5.2 cm. Renal cortical thickness and echogenicity are normal. No hydronephrosis is identified. No renal calculi or focal renal mass is identified. LEFT KIDNEY The left kidney measures approximately 10.6 x 4.4 x 4.9 cm. Renal cortical thickness and echogenicity are normal. No hydronephrosis is identified. No renal calculi or focal renal mass is identified. URINARY BLADDER The urinary bladder is partially distended. The bladder wall appears normal in thickness. No intraluminal mass or calculus is identified. IMPRESSION * Normal sonographic appearance of the kidneys without hydronephrosis, renal calculi, or focal renal mass. * Unremarkable urinary bladder. RECOMMENDATIONS * No further imaging is recommended at this time per ACR Appropriateness Criteria in the absence of persistent or worsening symptoms. * If flank pain persists or clinical suspicion for urinary tract pathology remains high, further evaluation with CT may be considered as clinically indicated. /[place] DICTATED BY: DIMITRI GUERRA MD DATE: 05/31/25107 ELECTRONICALLY SIGNED BY: DIMITRI GUERRA MD DATE: 05/31/[address] [address] IMAGING REPORT Signed PATIENT: ALEJANDRO ESTRELLA MR#: [id number] : 1945 SEX: F AGE: 80 LOCATION: EDHIP ORDER 1554 STATUS: ADM IN REPORT#: [id number] SERVICE 0758 REASON: heart failure exacerbation, heart clinic to read ORDERING PHYSICIAN: ARMINDA LEE MD PROCEDURE: ECHO CMP - ECHO 2-D COMPLETE APPROVED REPORT EXAM: Two-dimensional and M-mode echocardiogram with Doppler and color Doppler. INDICATION ICD: Heart failure exacerbation 2D Dimensions RVDd 4.0 cm LVEF(%) 62.6 (>50%) LVED Vol(simp.) 70.0 mL IVSd 1.2 (0.7-1.1cm) FS(%) 34 % LVES Vol(simp.) 29.0 mL LVDd 5.1 (3.8-5.6cm) LA (2D) 5.3 (1.6-4.0cm) LVEF(%, simp.) 58 % PWd 0.9 (0.7-1.1cm) Ao Root(2D) 3.1 (2.0-3.7cm) LA ESV INDEX (BP) 49.48 mL/m2 IVSs 1.2 cm LVOT diam 1.9 (1.8-2.4cm) LVDs 3.4 (2.5-4.0cm) PWs 1.3 cm Deformation Strain Apical 4 -13.9 % Apical 2 -16.8 % Apical 3 -14.0 % Global Strain -14.9 % M-Mode Dimensions EPSS 0.9 cm LA (MM) 5.2 (1.6-4.0cm) Ao Root(MM) 3.0 (2.0-3.7cm) Aortic Valve AoV Vmax 2.5 m/s Ao Peak GR 25.1 mmHg LVOT Vmax 1.1 m/s AoV VTI 0.5 m Ao Mean GR 15.3 mmHg LVOT VTI 0.22 m ADRIANO (VMAX) 1.23 cm2 Al P1/2T 493 ms ADRIANO (VTI) 1.2 cm2 Mitral Valve MV E Vmax 149.5 cm/s DECEL Time 125 ms MV A Vmax 63.0 cm/s P 1/2 T 60 ms E/A ratio 2.4 MVA (PHT) 3.7 cm2 TDI E/E' Medial 27.3 E/E' Lateral 25.5 Medial E' Peak V 5.48 cm/s Lateral E' Peak V 5.86 cm/s Pulmonary Valve PI End Jaimie. Luis 77.9 cm/s Tricuspid Valve TR Vmax 3.3 m/s RAP (EST) 9 mmHg RVSP 51.5 mmHg TR Peak GR 42.5 mmHg Left Ventricle The left ventricle is normal size. GLS -15.0% There is normal LV segmental wall motion. Mild concentric left ventricular hypertrophy. The LVEF is > 55%. Stage III diastolic dysfunction. Right Ventricle The right ventricle is normal size. The right ventricular systolic function is normal. Atria The left atrium is moderately dilated. The interatrial septum is intact The right atrium is moderately dilated. Aortic Valve Aortic valve is trileafletm mildly thickened and opens well. Mild aortic regurgitation is present. There is mild aortic valvular stenosis. Mitral Valve Posterior annular calcification noted. The mitral valve is mildly thickened. There is mild mitral valve regurgitation noted. There is no mitral valve s tenosis. Tricuspid Valve The tricuspid valve is normal in structure. There is severe tricuspid valve regurgitation noted. Pulmonic Valve Pulmonic valve is not well visualized. There is trace of pulmonic valvular regurgitation. Great Vessels The aortic root is normal in size. IVC is severely dilated and collapses <50% with inspiration. Pericardium There is no pericardial effusion. Other Information Quality : Fair Conclusion The left ventricle is normal size. Estimated LVEF is > 55% with normal LV segmental wall motion. Mild concentric left ventricular hypertrophy. Stage III diastolic dysfunction. The right ventricular systolic function is normal. The left atrium is moderately dilated. Mild aortic stenosis and regurgitation. There is severe tricuspid valve regurgitation noted. IVC is severely dilated and collapses <50% with inspiration. There is no pericardial effusion. DICTATED BY: ANUEL KAY MD DATE: 05/31/25 0937 ELECTRONICALLY SIGNED BY: ANUEL KAY MD DATE: 05/31/25 1603 [place] [id number] [place] [id number] IMAGING REPORT Signed PATIENT: ALEJANDRO ESTRELLA MR#: [id number] : 1945 SEX: F AGE: 80 LOCATION: [facility] ORDER 1352 STATUS: ADM IN REPORT#: [id number] SERVICE 1349 REASON: PERIPHERAL VASCULAR DISEASE, RT LEG ORDERING PHYSICIAN: DANIEL US MD PROCEDURE: LOW EXT WO - CT LOW EXT W/O CONTRAST STUDY CT lower extremity without intravenous contrast HISTORY Severe venous insufficiency, left leg; severe venous insufficiency both lower limbs TECHNIQUE Non-contrast CT acquisition of the bilateral lower extremities from iliac bifurcation through the feet with axial source images and multiplanar reformations COMPARISON No prior similar imaging available FINDINGS VASCULAR Right common iliac vein stent is in situ with preserved luminal caliber along the stented segment on this non-contrast study. No perivenous hematoma or discrete thrombus density is identified, although CT without contrast is limited for venous patency assessment. Right common femoral vein appears within normal limits without focal expansion or perivenous inflammatory change. Extensive calcific atherosclerotic plaque involves the right superficial femoral artery along its proximal, mid and distal segments and extends into the right popliteal artery, without gross aneurysmal dilatation on non-contrast images. Additional calcific atherosclerosis is present involving the bilateral common iliac arteries, without definite aneurysm. No definite deep fascial gas, drainable fluid collection or soft tissue emphysema is seen in the imaged right lower extremity. SOFT TISSUES The right lower extremity demonstrates diffuse skin thickening and increased attenuation of the subcutaneous fat with a cobblestone appearance consistent with cellulitis in the appropriate clinical setting. No well-formed rim-enhancing or low-attenuation collection is identified to suggest a drainable abscess on this non-contrast CT. No CT evidence of necrotizing fasciitis such as fascial gas or deep intermuscular fluid tracking is seen. OSSEOUS STRUCTURES AND JOINTS Visualized bony structures of the pelvis, femora, tibiae and fibulae demonstrate preserved cortical integrity without acute fracture or destructive bone lesion. Joint spaces at the hips, knees and ankles are maintained for age without convincing CT features of acute septic arthritis or osteomyelitis. OTHER No soft tissue foreign body is identified. No acute intramuscular hematoma is demonstrated. IMPRESSION * Right lower extremity cellulitis with diffuse skin thickening and cobblestoning of the subcutaneous fat; no CT evidence of drainable abscess or necrotizing fasciitis. * Right common iliac vein stent in situ, without CT evidence of local complication on this non-contrast exam; duplex ultrasound can better assess venous patency if clinically indicated. * Advanced calcific atherosclerosis involving the right superficial femoral and popliteal arteries and the bilateral common iliac arteries, compatible with significant peripheral arterial atherosclerotic disease. * No acute osseous abnormality identified. /[place] DICTATED BY: MIGUEL SHETH MD DATE: 06/01/25846 ELECTRONICALLY SIGNED BY: MIGUEL SHETH MD DATE: 06/01/25846 [place] [address] [id number] IMAGING REPORT Signed PATIENT: ALEJANDRO ESTRELLA MR#: [id number] : 1945 SEX: F AGE: 80 LOCATION: [facility] ORDER 1022 STATUS: ADM IN REPORT#: [id number] SERVICE 1400 REASON: Severe venous insufficiency, LT LEG ORDERING PHYSICIAN: RICKY DOMINGUEZ MD PROCEDURE: LOW EXT WO - CT LOW EXT W/O CONTRAST STUDY CT lower extremity without intravenous contrast, left HISTORY Severe venous insufficiency, left leg; severe venous insufficiency both lower limbs TECHNIQUE Non-contrast CT acquisition of the left lower extremity from iliac bifurcation through the foot with axial source images and multiplanar reformations COMPARISON No prior similar imaging available FINDINGS VASCULAR Left common iliac vein stent is in situ with preserved luminal caliber along the stented segment on this non-contrast study. No perivenous hematoma or discrete thrombus density is identified, acknowledging the limitation of non-contrast CT for venous patency assessment. Extensive calcific atherosclerotic plaque involves the left superficial femoral artery through the mid and distal segments, extending into the left popliteal artery. Additional calcific atherosclerotic calcifications are seen along the anterior tibial, posterior tibial and peroneal arteries, compatible with diffuse peripheral arterial atherosclerotic disease. Calcific atherosclerosis is also present involving the left common iliac artery without definite aneurysmal dilatation. No deep fascial gas, drainable fluid collection or soft tissue emphysema is identified in the imaged left lower extremity. SOFT TISSUES The left lower extremity demonstrates diffuse skin thickening and increased attenuation of the subcutaneous fat with a cobblestone appearance, in keeping with cellulitis in the appropriate clinical context. No well-formed low-attenuation fluid collection is seen to suggest a drainable abscess on this non-contrast study. No CT features of necrotizing fasciitis such as fascial gas or deep intermuscular fluid tracking are evident. OSSEOUS STRUCTURES AND JOINTS Visualized osseous structures of the pelvis, femur, tibia and fibula demonstrate preserved cortical outlines without acute fracture or aggressive lytic or sclerotic lesion. Joint spaces at the hip, knee and ankle are maintained for age without CT evidence of acute septic arthritis or osteomyelitis. OTHER No soft tissue foreign body is identified. No acute intramuscular hematoma is demonstrated. IMPRESSION * Left lower extremity cellulitis with diffuse skin thickening and cobblestoning of the subcutaneous fat; no CT evidence of a drainable abscess or necrotizing fasciitis. * Left common iliac vein stent in situ without CT evidence of local complication on this non-contrast study; duplex ultrasound can better evaluate venous patency if clinically indicated. * Advanced calcific atherosclerosis involving the left superficial femoral, popliteal, anterior tibial, posterior tibial and peroneal arteries, as well as the left common iliac artery, compatible with significant peripheral arterial atherosclerotic disease. * No acute osseous abnormality identified. /[place] DICTATED BY: MIGUEL SHETH MD DATE: 06/01/25847 ELECTRONICALLY SIGNED BY: MIGUEL SHETH MD DATE: 06/01/25847 [place] [address] IMAGING REPORT Signed PATIENT: ALJEANDRO ESTRELLA MR#: [id number] : 1945 SEX: F AGE: 80 LOCATION: [facility] ORDER 21 STATUS: ADM IN REPORT#: [id number] SERVICE 142 REASON: pad ORDERING PHYSICIAN: SHEELA LINCOLN PAC PROCEDURE: ART B LE - US ARTERIAL BILAT LOW EXT DUPL EXAM: US bilateral Lower Extremity arterial doppler Ultrasound CLINICAL HISTORY: pad TECHNIQUE: Real-time ultrasound scan of the bilateral lower extremity arterial doppler with image documentation. COMPARISON: None provided. FINDINGS: ARTERIES: Bilateral common femoral, popliteal, anterior tibial, posterior tibial, and dorsalis pedis arteries are visualised bilaterally. Mild diffuse intimal thickening with scattered atherosclerotic plaques noted bilaterally. Arterial luminal patency is maintained. No hemodynamically significant stenosis identified. Color Doppler demonstrates normal color filling without aliasing. Spectral Doppler waveforms are predominantly triphasic to biphasic in the examined segments. Peak systolic velocities are within normal limits. No evidence of arterial occlusion. IMPRESSION: 1. No acute findings. 2. Mild bilateral lower extremity atherosclerosis without hemodynamically significant stenosis. /[place] DICTATED BY: MIGUEL SHETH MD DATE: 06/02/25648 ELECTRONICALLY SIGNED BY: MIGUEL SHETH MD DATE: 06/02/25648 Assessment/Plan: Discharge Diagnosis: Decompensated heart failure exacerbation with history of diastolic dysfunction, POA History of atrial fibrillation on chronic Eliquis, POA History of aortic insufficiency and aortic stenosis, POA Bilateral lower extremity cellulitis, POA Significant volume overload, POA History of hypertension, POA History of hyperlipidemia, POA History of healing wound in one two the right lower extremity, POA History of bilateral lower extremity venous stasis dermatitis with history of venous insufficiency, POA 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 Avila - Infectious Disease Dr. Tee Teresa - Cardiology Marc Greenfield - Wound care Consult FOLLOW UP APPOINTMENTS: Follow up with Cardiology in a week. Follow up with Infectious Disease in a week. Follow up with Primary Care Physician 2 to 3days after discharge. SPECIFIC INSTRUCTIONS: Take Medications as prescribed Take cephalexin 500 mg by mouth three times daily for 10 days and doxycycline 100 mg by mouth twice daily for 10 days. Monitor daily weight and notify your physician for weight gain >2 lbs in 24 hours or >5 lbs in one week. Follow a low-sodium diet and maintain fluid restriction as instructed. Keep lower extremities elevated when resting and continue routine wound care. Return to the emergency department for worsening shortness of breath, chest pain, fever, increasing leg redness/swelling, or bleeding. PROCEDURES: None IMAGING: report attached to summary MICROBIOLOGY: report attached to summary HOME MEDICATIONS: see med rec NEW MEDICATIONS: See medication reconciliation EMERGENCY INSTRUCTIONS: The patient was instructed to present to the nearest Emergency department or call 911 once their symptoms will return or worsen. Home Medications: Active Scripts Cephalexin (Cephalexin) 500 Mg Tablet, 1 TAB PO BID for 10 Days, #20 TAB 0 Refills Prov:[facility]ACHELL [facility] 03/02/25 Metoprolol Tartrate (Lopressor) 25 Mg Tab, 12.5 MG PO BID, #60 TAB 0 Refills Prov:H[facility]EN [facility] [employer] 08/30/23 Apixaban (Eliquis) 5 Mg Tablet, 5 MG PO BID, #60 TAB 0 Refills Prov:HAVEN ONEAL [facility] 08/30/23 Time spent arranging discharge: 1-30 minutes ATTESTATION BY PHYSICIAN I have seen and examined the patient. I reviewed the documentation, medical decision making, and treatment plan as noted by the resident provider above. I agree with the findings and plan of care. Patricio Danielle IV, MD, LAKSHMI MD Jun 04, 2025 11:27
[2025-06-04 12:07] VITALS: BP 146/70; PULSE 65; RESP 18; TEMP 98.3
[2025-06-04] MEDS ORDERED: LOSA25TA41 PO (12:47)
[2025-06-04] MEDS ORDERED: FURO40TA7 PO (12:47)
[2025-06-04] MEDS ORDERED: GABA-529 PO (12:47)
== END 2025-06-04 14:30 | disposition home or self-care (01) | DRG 602 ==
LOC: EDH 13:07 → EDHIP 15:49 → 3CH 05-31 15:15
PROVIDERS: ADMIT Internal Medicine; ATTEND Internal Medicine
DX: L03.115 Cellulitis of right lower limb (principal); I50.31 Acute diastolic (congestive) heart failure; I11.0 Hypertensive heart disease with heart failure; L03.116 Cellulitis of left lower limb; Z79.01 Long term (current) use of anticoagulants; E11.51 Type 2 diabetes mellitus with diabetic peripheral angiopathy without gangrene; I35.2 Nonrheumatic aortic (valve) stenosis with insufficiency; I48.19 Other persistent atrial fibrillation; J98.11 Atelectasis; I87.2 Venous insufficiency (chronic) (peripheral); E78.5 Hyperlipidemia, unspecified; I87.8 Other specified disorders of veins; I07.1 Rheumatic tricuspid insufficiency; E87.6 Hypokalemia; T50.2X5A Adverse effect of carbonic-anhydrase inhibitors, benzothiadiazides and other diuretics, initial encounter; Z82.49 Family history of ischemic heart disease and other diseases of the circulatory system; Z90.710 Acquired absence of both cervix and uterus; Z79.899 Other long term (current) drug therapy; Z80.3 Family history of malignant neoplasm of breast; Z80.8 Family history of malignant neoplasm of other organs or systems; Z83.3 Family history of diabetes mellitus; Z91.148 Patient's other noncompliance with medication regimen for other reason
CPT/HCPCS: 36415; 71045; 73700; 76770; 80048; 80061; 80076; 80202; 81001; 82550; 82570; 83036; 83615; 83721; 83735; 83880; 84145; 84156; 84443; 84484; 84540; 85025; 85027; 85610; 85651; 85730; 86140; 87040; 93005; 93306; 93356; 93925; 93970; 96374; 96375; 97161; 99285; G0378; J0692; J1938; J2543; J3475; J3480; J3373